=== PATIENT | male | born 1970 | race Caucasian/White ===

== ENCOUNTER 2020-11-10 08:08 | Outpatient (CLI) | payer OTHER, SELFPAY ==
--- NOTE | ~2020-11-10 | US_ITS ---
EXAMINATION: US carotid duplex BI DATE: 11/10/2020 09:17 INDICATION: Carotid bruit TECHNIQUE: Grayscale, color Doppler, and pulsed Doppler images of the cervical carotid arteries were obtained. The degree of vessel stenosis is placed in one of the following categories: normal, <50%, 5 0-69%, >=70% but less than near-occlusion, near-occlusion, or total occlusion. Note that percent sten osis relative to normal distal artery lumen diameter is indirectly measured from velocity measurement s as described by Bernard, et al. Radiology 2003; [id number]. COMPARISON: 07/30/2019 FINDINGS: RIGHT: The right common carotid artery (CCA) peak systolic velocity (PSV) is 188 cm/s. The right internal ca rotid artery (ICA) PSV is 162 cm/s. The right ICA end-diastolic velocity (EDV) is 51 cm/s. The right ICA/CCA PSV ratio is 0.9. Grayscale and color Doppler images yield an estimate of 50-69% diameter red uction from plaque in the ICA. The external carotid artery (ECA) PSV is 186 cm/s. There is antegrade flow in the right vertebral artery. LEFT: The left CCA PSV is 135 cm/s. The left ICA PSV is 142 cm/s. The left ICA EDV is 44 cm/s. The left ICA /CCA PSV ratio is 1.1. Grayscale and color Doppler images yield an estimate of 50-69% diameter reduct ion from plaque in the ICA. The ECA PSV is 181 cm/s. There is antegrade flow in the left vertebral ar franky. IMPRESSION: 1. 50-69% stenosis in the right internal carotid artery. 2. 50-69% stenosis in the left internal carotid artery. Reviewed, dictated and finalized at location A. [employer]
--- NOTE | ~2020-11-10 | US_ITS ---
EXAMINATION: US art doppler w press LE BI DATE: 11/10/2020 09:17 INDICATION: Bilateral lower limb pain. TECHNIQUE: Segmental pressures and plethysmographic and Doppler waveforms of the brachial and lower e xtremity arteries were obtained. COMPARISON: None. FINDINGS: Right and left brachial artery pressures of 114 mm Hg and 98 mm Hg, respectively, are normal (normal difference <= 30 mmHg). The right and left high-thigh pressure indices are 1.18 and 1.01, respectivel y (normal > 1.2). The right ankle-brachial index (SHASHANK) is 1.17 (normal >= 0.9-1). The right great toe-brachial index (T BI) is 0.71 (normal >= 0.6-0.8). The right lower extremity segmental pressure gradients are normal (n ormal gradients <= 20-30 mmHg between adjacent levels on the same leg or the same levels on the two l egs). Arterial waveforms are triphasic at the right common femoral, superficial femoral and popliteal arteries and biphasic at the right posterior tibial and dorsalis pedis arteries with brisk systolic upstrokes throughout. The left SHASHANK is 1.05. The left TBI is 0.64. The left lower extremity segmental pressure gradients are normal. Arterial waveforms are triphasic at the left common femoral, superficial femoral and poplite al arteries and biphasic at the left posterior tibial and dorsalis pedis arteries with brisk systolic upstrokes throughout. IMPRESSION: 1. Normal SHASHANK's and TBI's bilaterally. No significant arterial occlusive disease. Reviewed, dictated and finalized at location A. E SETTER IMPRESSION: 1. Normal SHASHANK's and TBI's bilaterally. No significant arterial occlusive diseas e.
== END 2020-11-10 08:09 | disposition home or self-care (01) ==
LOC: ANHIMG 08:12
PROVIDERS: PCP Family Medicine; Visit Provider Internal Medicine Cardiovascular Disease
DX: I25.10 Atherosclerotic heart disease of native coronary artery without angina pectoris (principal); I65.23 Occlusion and stenosis of bilateral carotid arteries; M79.604 Pain in right leg; M79.605 Pain in left leg; Z72.0 Tobacco use; R09.89 Other specified symptoms and signs involving the circulatory and respiratory systems
CPT/HCPCS: 93880; 93923

== ENCOUNTER 2020-12-14 15:36 | Outpatient (CLI) | payer OTHER, SELFPAY ==
--- NOTE | ~2020-12-14 | XR_ITS ---
XR lumbar spine 2-3V DATE: 12/14/2020 16:12 INDICATION: Lower back pain for 2 to 3 weeks and left hip pain. No recent injury TECHNIQUE: AP, lateral, coned lateral lumbosacral views COMPARISON: None FINDINGS: No fracture or bone destruction or spondylolisthesis is evident. The lumbar pedicles are in tact. Lumbar and lumbosacral interspaces are relatively preserved. The sacroiliac joints are intact, with mild degenerative change of the right. IMPRESSION: No significant abnormality of the lumbar spine Reviewed, dictated and finalized at location B.
--- NOTE | ~2020-12-14 | XR_ITS ---
XR sacrum coccyx min 2V DATE: 12/14/2020 16:12 INDICATION: Low back pain for 2 to 3 weeks, left hip pain TECHNIQUE: AP and angled AP and lateral views COMPARISON: None FINDINGS: There is mild sclerotic degenerative change at the right sacroiliac joint. No fracture or d islocation at the sacroiliac joints. No sacral or coccygeal fracture or bone destruction. The pubic s ymphysis is intact. Hip joint spaces appear symmetric and relatively preserved. IMPRESSION: Mild degenerative change at right sacroiliac joint Reviewed, dictated and finalized at location B.
--- NOTE | ~2020-12-14 | XR_ITS ---
XR hip LT min 2V DATE: 12/14/2020 16:13 INDICATION: Left hip pain for 2 to 3 weeks TECHNIQUE: AP, lateral and crosstable lateral views COMPARISON: None FINDINGS: No fracture or dislocation, avascular necrosis or bone destruction. Left hip joint space is well preserved. Symphysis and sacroiliac joints are intact. IMPRESSION: Negative left hip Reviewed, dictated and finalized at location B. IMPRESSION: Negative left hip
== END 2020-12-14 15:37 | disposition home or self-care (01) ==
PROVIDERS: PCP Family Medicine
DX: M47.818 Spondylosis without myelopathy or radiculopathy, sacral and sacrococcygeal region (principal); M25.552 Pain in left hip; M54.5 Low back pain
CPT/HCPCS: 72100; 72220; 73502

== ENCOUNTER 2021-05-09 09:34 | Outpatient (CLI) | payer OTHER, SELFPAY ==
[2021-05-09 10:19] LABS: Basophils Absolute Auto 0.1 K/mm3 (0.0-0.1); Basophils Percent Auto 0.6 % (0.2-1.2); Eosinophils Absolute Auto 0.2 K/mm3 (0-0.3); Eosinophils Percent Auto 2.6 % (0-4.4); Hematocrit 32.3 % (42.0-52.0); Hemoglobin 10.1 g/dL (14.0-18.0); Immature Granulocyte Absolute 0.07 K/mm3 (0.00-0.031); Immature Granulocyte Percent A 0.7 % (0-0.5); Lymphocytes Absolute Auto 1.89 K/mm3 (0.9-3.2); Lymphocytes Percent Auto 20.1 % (18.3-44.2); Mean Corpuscular HGB Conc 31.3 g/dl (32-36); Mean Corpuscular Hemoglobin 30.3 pg (26-34); Mean Platelet Volume 8.5 fl (7.4-10.4); Monocytes Absolute Auto 0.9 K/mm3 (0.1-0.6); Monocytes Percent Auto 9.8 % (2.6-8.5); Neutrophils Absolute Auto 6.2 K/mm3 (1.3-6.7); Neutrophils Percent Auto 66.2 % (45.5-73.1); Platelet Count Result 454 k/mm3 (150-375); Red Blood Count 3.33 M/mm3 (4.6-6.20); Red Cell Distribution Width 13.6 % (11.5-14.5); White Blood Count 9.4 K/mm3 (4.5-10.0)
[2021-05-09 10:50] LABS: Alanine Aminotransferase 23 U/L (4-50); Albumin Level 4.3 g/dL (3.5-5.1); Alkaline Phosphatase 110 U/L (38-126); Anion Gap 4 mmol/L (8-16); Aspartate Amino Transferase 29 U/L (17-59); Bilirubin,Total 0.5 mg/dL (0.2-1.3); Blood Urea Nitrogen 13 mg/dL (9-20); Calcium 9.2 mg/dL (8.4-10.2); Carbon Dioxide 26 mmol/L (22-30); Chloride 103 mmol/L (98-107); Cholesterol 95 mg/dL (0-200); Estimated Glomerular Filt Rate > 60; Glucose 96 mg/dL (65-110); HDL Direct 58 mg/dL; Potassium 3.8 mmol/L (3.4-5.0); Sodium 133 mmol/L (137-145); Triglycerides 31 mg/dL (<150)
[2021-05-09 11:01] LABS: LDL Cholesterol Direct 31 mg/dL
[2021-05-09 11:07] LABS: Prostate Specific Antigen 0.2 ng/mL (< OR = 4.0)
[2021-05-09 11:33] LABS: Creatinine Urine 139.3 mg/dL
[2021-05-09 11:38] LABS: MALB Creatinine Ratio 5.4 mg/g (0-30); Microalbumin Urine Random 7.5 mg/L (0-16.7)
[2021-05-09 12:30] LABS: Vitamin D 25 Hydroxy 41.9 ng/mL
== END 2021-05-09 09:35 | disposition home or self-care (01) ==
PROVIDERS: PCP Family Medicine
DX: Z00.00 Encounter for general adult medical examination without abnormal findings (principal); J44.9 Chronic obstructive pulmonary disease, unspecified; F17.200 Nicotine dependence, unspecified, uncomplicated; I10 Essential (primary) hypertension; E55.9 Vitamin D deficiency, unspecified; Z13.0 Encounter for screening for diseases of the blood and blood-forming organs and certain disorders involving the immune mechanism; Z13.6 Encounter for screening for cardiovascular disorders; Z13.220 Encounter for screening for lipoid disorders; Z13.29 Encounter for screening for other suspected endocrine disorder; Z12.5 Encounter for screening for malignant neoplasm of prostate; R80.9 Proteinuria, unspecified
CPT/HCPCS: 36415; 80053; 80061; 82043; 82306; 84153; 85025; G0103

== ENCOUNTER → 2021-06-21 02:56 | Outpatient (CLI) | payer OTHER, SELFPAY ==
[2021-06-22 01:26] LABS: SARS-CoV-2 RNA PCR Negative
== END ==
PROVIDERS: PCP Family Medicine; Visit Provider Internal Medicine Gastroenterology
DX: Z01.812 Encounter for preprocedural laboratory examination (principal); Z20.822 Contact with and (suspected) exposure to COVID-19
CPT/HCPCS: C9803; U0003; U0005

== ENCOUNTER 2021-06-24 02:28 | Day surgery (SDC) | payer OTHER, SELFPAY ==
[2021-06-16 09:38] VITALS: BMI 18.0
[2021-06-24 09:45] VITALS: BP 139/61; PULSE 60; RESP 16; TEMP 36.6; O2SAT 100; BMI 19.6
[2021-06-24] MEDS: LACTATED RINGERS 1,000 ML 150 ML IV CONT (10:15)
--- NOTE | 2021-06-24 10:23 | WPDGICN ---
Assessment and Plan Assessment and plan (1) Anemia: Code(s): D64.9 - Anemia, unspecified Status: Acute Assessment and Plan: Patient has normochromic normocytic anemia recently identified. No obvious signs of GI blood loss. Colonoscopy is requested will be performed. Recommend stool Hemoccult be obtained as an outpatient as well as iron indices. If patient is iron deficient or Hemoccult-positive EGD may also be required at a later day. Further recommendations will be given after colonoscopy. Consider Hematology evaluation if GI series unremarkable. (2) Encounter for screening colonoscopy: Code(s): Z12.11 - Encounter for screening for malignant neoplasm of colon Status: Acute Assessment and Plan: Screening colonoscopy advised because patient is over age 50 this will be performed. GI Consult Note Consult date/time: 06/24/21 10:23 HPI: Luis Manuel Delgado is a 51 year old male Referred for screening colonoscopy. Patient reports his weight appetite bowel movements are normal. He apparently was found to have normochromic normocytic anemia and this motivated colonoscopy to evaluate more thoroughly. Patient denies any blood in his stools. He has had no bleeding elsewhere. His bowel habits are described as normal. His family history is noncontributory. Patient does report that he has had boils on his buttocks. These have occurred intermittently over the last several months. Review of Systems Review of Systems: All systems reviewed & are unremarkable except as noted in HPI and below PMFSH Past Medical History Medical History (Updated 06/24/21 @ 10:25 by Joe Villanueva MD) Anemia CAD (coronary artery disease) COPD (chronic obstructive pulmonary disease) Hyperlipidemia Hypertension Surgical History Surgical History (Updated 06/24/21 @ 10:14 by Jonathan Lowe MD) Stented coronary artery Family History Family History (Updated 05/16/16 @ 15:06 by DOCTOR UNKNOWN) Father Hypertension Mother Family history of malignant neoplasm of breast in first degree relative Other Diabetes mellitus Family history of malignant neoplasm of brain Social History Social History Smoking packs per day: 1 Smoking cigarettes per day: 20.0 Years smoked: 40 Smoking pack-years: 40.00 Smoking status: Heavy tobacco smoker Tobacco type: cigarettes Alcohol intake: current Substance use: never Substance use type: does not use Spiritual care concerns: No Meds Home Medications and Allergies Home Medications Medication Instructions Recorded Confirmed Type aspirin [Adult Low Dose Aspirin] 81 mg PO DAILY 06/16/21 06/24/21 History atorvastatin 40 mg PO DAILY 06/16/21 06/24/21 History ferrous sulfate [FeroSul] 325 mg PO BID 06/16/21 06/24/21 History lisinopril 2.5 mg PO BID 06/16/21 06/24/21 History nitroglycerin 0.3 mg SUBLINGUAL PRN 06/16/21 06/24/21 History ticagrelor [Brilinta] 60 mg PO BID 06/16/21 06/24/21 History Allergies Allergy/AdvReac Type Severity Reaction Status Date / Time succinylcholine Allergy Severe PT HAS A Verified 06/24/21 09:55 GENE THAT IS ADVERSE TO ANECTINE Vital Signs Vital Signs - 24 hr 06/24/21 09:45 Temperature 97.8 F Pulse Rate 60 Respiratory Rate 16 Blood Pressure 139/61 Pulse Oximetry 100 Exam Narrative: physical exam reveals patient to be alert. Vital signs stable. HEENT exam is unremarkable. Patient is anicteric. Lungs are clear to auscultation and percussion. Heart is without murmur or extra sounds. Abdominal exam bowel sounds are present soft nontender with no organomegaly. Digital external rectal exam is normal.
--- NOTE | 2021-06-24 10:34 | P.PNAN_ITS ---
Anes - Initial Pre Proc Eval Procedure: Operation Date: 06/24/21 11:00 Proposed Procedures p Colonoscopy - Joe Villanueva MD Date/Time: 06/24/21 10:34 Surgeon: Joe Villanueva MD Pre Op Diagnosis: anemia Patient Data Age: 51 Gender: M Height: 1.85 m Weight: 67.5 kg Last Vital Signs Temp 97.8 F 06/24/21 09:45 Pulse 60 06/24/21 09:45 Resp 16 06/24/21 09:45 BP 139/61 06/24/21 09:45 Pulse Ox 100 06/24/21 09:45 Allergies Allergy/AdvReac Type Severity Reaction Status Date / Time succinylcholine Allergy Severe PT HAS A Verified 06/24/21 09:55 GENE THAT IS ADVERSE TO ANECTINE Home Medications Medication Instructions Recorded Confirmed Type aspirin [Adult Low Dose Aspirin] 81 mg PO DAILY 06/16/21 06/24/21 History atorvastatin 40 mg PO DAILY 06/16/21 06/24/21 History ferrous sulfate [FeroSul] 325 mg PO BID 06/16/21 06/24/21 History lisinopril 2.5 mg PO BID 06/16/21 06/24/21 History nitroglycerin 0.3 mg SUBLINGUAL PRN 06/16/21 06/24/21 History ticagrelor [Brilinta] 60 mg PO BID 06/16/21 06/24/21 History Patient hx anesthesia problems: none Family hx anesthesia problems: none Results Review: All pre-operative results and documents have been reviewed as part of the pre-operative evaluation. [facility] Past Medical History Medical History (Updated 06/24/21 @ 10:25 by Joe Villanueva MD) Anemia CAD (coronary artery disease) COPD (chronic obstructive pulmonary disease) Hyperlipidemia Hypertension Surgical History Surgical History (Updated 06/24/21 @ 10:14 by Jonathan Lowe MD) Stented coronary artery Family History Family History (Updated 05/16/16 @ 15:06 by DOCTOR UNKNOWN) Father Hypertension Mother Family history of malignant neoplasm of breast in first degree relative Other Diabetes mellitus Family history of malignant neoplasm of brain Social History Social History Smoking packs per day: 1 Smoking cigarettes per day: 20.0 Years smoked: 40 Smoking pack-years: 40.00 Smoking status: Heavy tobacco smoker Tobacco type: cigarettes Alcohol intake: current Substance use: never Substance use type: does not use Spiritual care concerns: No Anes - Eval Final PreProcedure Day of Procedure 06/24/21 10:34 Patient weight: normal Lungs: clear to auscultation Airway: Mallampati scale class II Neurological: alert and oriented Last oral intake: >/= 8 hours ASA classification: III Emergent: no Anesthetic plan: proceed Anesthesia type and monitoring: general GIVS and standard monitoring Results Review: All pre-operative results and documents have been reviewed as part of the pre-operative evaluation. Informed Consent: The patient's anesthetic plan and its attendant risks and dilma efits were discussed with the patient/family/POA. Questions were solicited and answers provided to the satisfaction of the patient/family/POA.
[2021-06-24 11:01] VITALS: BP 97/57; PULSE 57; RESP 22; O2SAT 100
[2021-06-24 11:11] VITALS: BP 100/58; PULSE 55; RESP 22; O2SAT 100
[2021-06-24 11:21] VITALS: BP 112/60; RESP 18; O2SAT 100
[2021-06-24 13:14] LABS: Iron 23 ug/dL (49-181)
[2021-06-24 13:23] LABS: Percent Iron Saturation 7 % (20-50)
== END 2021-06-24 12:11 | disposition home or self-care (01) ==
PROVIDERS: PCP Family Medicine; Visit Provider Internal Medicine Gastroenterology
PROC: 0DJD8ZZ Inspection of Lower Intestinal Tract, Via Natural or Artificial Opening Endoscopic (ICD-10-PCS; CPT 45378; principal; 2021-06-24 11:00)
DX: Z12.11 Encounter for screening for malignant neoplasm of colon (principal); D64.9 Anemia, unspecified; D12.4 Benign neoplasm of descending colon; K63.5 Polyp of colon; K64.8 Other hemorrhoids; I25.10 Atherosclerotic heart disease of native coronary artery without angina pectoris; J44.9 Chronic obstructive pulmonary disease, unspecified; I10 Essential (primary) hypertension; E78.5 Hyperlipidemia, unspecified; F17.210 Nicotine dependence, cigarettes, uncomplicated; Z79.82 Long term (current) use of aspirin
CPT/HCPCS: 45385; 36415; 82728; 83540; 83550; 88305; C9803; J2704; J7120; U0003; U0005

== ENCOUNTER 2021-11-08 16:32 | Outpatient (CLI) | payer OTHER, SELFPAY ==
[2021-11-08 17:39] LABS: Basophils Absolute Auto 0.1 K/mm3 (0.0-0.1); Basophils Percent Auto 0.6 % (0.2-1.2); Eosinophils Absolute Auto 0.4 K/mm3 (0-0.3); Eosinophils Percent Auto 4.8 % (0-4.4); Hematocrit 31.6 % (42.0-52.0); Hemoglobin 10.7 g/dL (14.0-18.0); Immature Granulocyte Absolute 0.05 K/mm3 (0.00-0.031); Immature Granulocyte Percent A 0.6 % (0-0.5); Lymphocytes Absolute Auto 1.99 K/mm3 (0.9-3.2); Lymphocytes Percent Auto 22.6 % (18.3-44.2); Mean Corpuscular HGB Conc 33.9 g/dl (32-36); Mean Corpuscular Hemoglobin 33.3 pg (26-34); Mean Corpuscular Volume 98.4 fl (80-100); Mean Platelet Volume 8.8 fl (7.4-10.4); Neutrophils Absolute Auto 5.3 K/mm3 (1.3-6.7); Neutrophils Percent Auto 60.4 % (45.5-73.1); Platelet Count Result 349 k/mm3 (150-375); Red Blood Count 3.21 M/mm3 (4.6-6.20); Red Cell Distribution Width 14.7 % (11.5-14.5); White Blood Count 8.8 K/mm3 (4.5-10.0)
[2021-11-08 18:12] LABS: Alanine Aminotransferase 21 U/L (4-50); Albumin Level 4.2 g/dL (3.5-5.1); Alkaline Phosphatase 102 U/L (38-126); Anion Gap 3 mmol/L (8-16); Aspartate Amino Transferase 29 U/L (17-59); Bilirubin,Total 0.4 mg/dL (0.2-1.3); Blood Urea Nitrogen 16 mg/dL (9-20); Calcium 9.4 mg/dL (8.4-10.2); Carbon Dioxide 29 mmol/L (22-30); Chloride 105 mmol/L (98-107); Cholesterol 85 mg/dL (0-200); Estimated Glomerular Filt Rate > 60; Glucose 92 mg/dL (65-110); HDL Direct 48 mg/dL; Magnesium 1.9 mg/dL (1.6-2.3); Sodium 137 mmol/L (137-145); Triglycerides 33 mg/dL (<150)
[2021-11-08 18:52] LABS: Iron 58 ug/dL (49-181)
[2021-11-08 19:01] LABS: Percent Iron Saturation 17 % (20-50)
[2021-11-08 19:27] LABS: Ferritin 9.53 ng/mL (11.1-264)
[2021-11-08 20:10] LABS: Vitamin D 25 Hydroxy 22.5 ng/mL
[2021-11-08 21:46] LABS: LDL Cholesterol Direct < 30 mg/dL
== END 2021-11-08 16:33 | disposition home or self-care (01) ==
LOC: ANHLAB 16:34
PROVIDERS: PCP Family Medicine; Visit Provider Nurse Practitioner Family
DX: D64.9 Anemia, unspecified (principal); E78.5 Hyperlipidemia, unspecified; I10 Essential (primary) hypertension; I25.10 Atherosclerotic heart disease of native coronary artery without angina pectoris; J44.9 Chronic obstructive pulmonary disease, unspecified; E55.9 Vitamin D deficiency, unspecified
CPT/HCPCS: 36415; 80053; 80061; 82306; 82607; 82728; 83540; 83550; 83735; 84443; 85025

== ENCOUNTER 2022-01-18 11:03 | Outpatient (CLI) | payer OTHER, SELFPAY ==
--- NOTE | ~2022-01-18 | XR_ITS ---
EXAMINATION: XR lumbar spine 2-3V DATE: 01/18/2022 11:35 INDICATION: Low back pain TECHNIQUE: Anteroposterior and lateral views of the lumbar spine, and cone-down lateral view of the l umbosacral junction were obtained. COMPARISON: 12/14/2020 FINDINGS: There are 2 mm of stable retrolisthesis of L5 on S1. Bone alignment is otherwise maintained . There is mild loss of intervertebral disc space height at L4-5 and moderate loss of disc space heig ht at L5-S1. The vertebral body heights are normal. There is no fracture. Calcified atherosclerosis i s noted. There is mild facet osteoarthritis of the lower lumbar spine. IMPRESSION: 1. Mild lumbar spondylosis without acute findings or significant interval change. Reviewed, dictated and finalized at location F. IMPRESSION: 1. Mild lumbar spondylosis without acute findings or significant interval mallory eBlanca
--- NOTE | ~2022-01-18 | XR_ITS ---
XR ankle RT 2V DATE: 01/18/2022 11:35 INDICATION: Fall in October. Right leg, ankle pain TECHNIQUE: AP and lateral views COMPARISON: None FINDINGS: No fracture or dislocation of the ankle or disruption of the ankle mortise. No fracture or bone destruction. No soft tissue swelling. IMPRESSION: Negative Reviewed, dictated and finalized at location A. IMPRESSION: Negative
[2022-01-18 11:55] LABS: Basophils Absolute Auto 0.1 K/mm3 (0.0-0.1); Basophils Percent Auto 0.5 % (0.2-1.2); Eosinophils Absolute Auto 0.4 K/mm3 (0-0.3); Eosinophils Percent Auto 2.8 % (0-4.4); Hematocrit 38.5 % (42.0-52.0); Hemoglobin 13.5 g/dL (14.0-18.0); Immature Granulocyte Absolute 0.07 K/mm3 (0.00-0.031); Immature Granulocyte Percent A 0.5 % (0-0.5); Lymphocytes Absolute Auto 1.92 K/mm3 (0.9-3.2); Lymphocytes Percent Auto 14.8 % (18.3-44.2); Mean Corpuscular HGB Conc 35.1 g/dl (32-36); Mean Corpuscular Hemoglobin 34.4 pg (26-34); Mean Corpuscular Volume 98.2 fl (80-100); Mean Platelet Volume 8.5 fl (7.4-10.4); Monocytes Absolute Auto 1.3 K/mm3 (0.1-0.6); Neutrophils Absolute Auto 9.3 K/mm3 (1.3-6.7); Neutrophils Percent Auto 71.4 % (45.5-73.1); Platelet Count Result 332 k/mm3 (150-375); Red Blood Count 3.92 M/mm3 (4.6-6.20); Red Cell Distribution Width 13.2 % (11.5-14.5)
[2022-01-18 12:08] LABS: Iron 136 ug/dL (49-181)
[2022-01-18 12:17] LABS: Percent Iron Saturation 46 % (20-50)
[2022-01-18 12:58] LABS: Vitamin B12 > 1000.0 pg/mL (239-931)
== END 2022-01-18 11:04 | disposition home or self-care (01) ==
LOC: ANHIMG 11:07
PROVIDERS: PCP Family Medicine; Visit Provider Nurse Practitioner Family
DX: D50.9 Iron deficiency anemia, unspecified (principal); E53.8 Deficiency of other specified B group vitamins; M25.571 Pain in right ankle and joints of right foot; M47.817 Spondylosis without myelopathy or radiculopathy, lumbosacral region
CPT/HCPCS: 36415; 72100; 73600; 82607; 82728; 83540; 83550; 85025

== ENCOUNTER 2022-01-27 01:54 | Day surgery (SDC) | payer OTHER, SELFPAY ==
[2022-01-17 12:11] VITALS: BMI 21.0
[2022-01-27 12:25] VITALS: BP 107/58; PULSE 61; RESP 18; TEMP 36.6; O2SAT 93; BMI 20.4
[2022-01-27] MEDS: LACTATED RINGERS 1,000 ML 150 ML IV CONT (12:46)
--- NOTE | 2022-01-27 12:53 | WPDANESEPPF ---
Anes - Initial Pre Proc Eval Procedure: Operation Date: 01/27/22 13:00 Proposed Procedures p Esophagogastroduodenoscopy - Joe Villanueva MD Date/Time: 01/27/22 12:53 Surgeon: Joe Villanueva MD Pre Op Diagnosis: occult GI bleed, SILVANA Patient Data Age: 52 Gender: M Height: 1.85 m Weight: 70.2 kg Last Vital Signs Temp 36.6 C 01/27/22 12:25 Pulse 61 01/27/22 12:25 Resp 18 01/27/22 12:25 BP 107/58 L 01/27/22 12:25 Pulse Ox 93 01/27/22 12:25 Allergies Allergy/AdvReac Type Severity Reaction Status Date / Time succinylcholine Allergy Severe PT HAS A Verified 01/27/22 12:33 GENE THAT IS ADVERSE TO ANECTINE Home Medications Medication Instructions Recorded Confirmed Type aspirin [Adult Low Dose Aspirin] 81 mg PO DAILY 06/16/21 01/27/22 History atorvastatin 40 mg PO DAILY 06/16/21 01/27/22 History lisinopril 5 mg PO BID 06/16/21 01/27/22 History nitroglycerin 0.3 mg SUBLINGUAL PRN PRN 06/16/21 01/27/22 History ticagrelor [Brilinta] 60 mg PO BID 06/16/21 01/27/22 History ferrous sulfate 325 mg (65 mg 325 mg PO DAILY #30 tablet 11/14/21 01/27/22 Rx iron) tablet mecobalamin (vitamin B12) 1,000 1,000 mcg SUBLINGUAL DAILY #30 11/14/21 01/27/22 Rx mcg disintegrating tablet tablet,sublingual tizanidine 2 mg tablet 2 mg PO TID PRN #30 tablet 12/29/21 01/27/22 Rx ascorbic acid (vitamin C) 500 mg 500 mg PO DAILY cap 01/04/22 01/27/22 History capsule ibuprofen [Advil] 200 mg PO Q6H PRN 01/17/22 01/27/22 History doxycycline hyclate 100 mg tablet 100 mg PO BID 10 Days #20 tablet 01/18/22 01/27/22 Rx Patient hx anesthesia problems: pseudocholinesterase deficiency Family hx anesthesia problems: pseudocholinesterase deficiency Results Review: All pre-operative results and documents have been reviewed as part of the pre-operative evaluation. [facility] Past Medical History Medical History Abnormal reflexes Anemia Back injuries BMI 20.0-20.9, adult BMI between 19-24,adult Body mass index [BMI] 23.0-23.9, adult (05/16/16) CAD (coronary artery disease) Colonoscopy planned COPD (chronic obstructive pulmonary disease) Costochondritis Encounter for general adult medical examination with abnormal findings Folliculitis Gingivitis Hearing loss, bilateral Hematuria Hemoptysis Hyperlipidemia Hypertension Skin lesion Tobacco use Tonsillectomy planned Viral syndrome Weight loss Wheezing Surgical History Surgical History H/O adenoidectomy History of lung biopsy History of tooth extraction Stented coronary artery Family History Family History Father Hypertension Acute myocardial infarction Dupuytrens contracture Mother Family history of malignant neoplasm of breast in first degree relative Breast cancer Sibling No problems noted. 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
--- NOTE | 2022-01-27 13:15 | WPDHPUPDATE1 ---
History and Physical Update Update Date/Time: 01/27/22 13:15 In addition to history provided on previous H&P patient reports occasional drainage from the perianal area. Sometimes this is foul smelling. Physical exam today reveals what appears to be a small perianal abscess on the right anterior area of the anal opening. Plan will be for surgical referral to consider drainage. History and Physical has been reviewed, including an updated exam of the patient. There are NO changes in the patient's condition. Risks, benefits, and alternatives have been discussed and questions answered. Patient agrees to proceed with procedure.
[2022-01-27 13:41] VITALS: BP 82/47; PULSE 61; RESP 25; O2SAT 95
[2022-01-27 13:51] VITALS: BP 89/52; PULSE 51; RESP 22; O2SAT 98
[2022-01-27 14:01] VITALS: BP 106/52; PULSE 53; RESP 16; O2SAT 98
== END 2022-01-27 14:16 | disposition home or self-care (01) ==
PROVIDERS: PCP Family Medicine; Visit Provider Internal Medicine Gastroenterology
PROC: 0DJ08ZZ Inspection of Upper Intestinal Tract, Via Natural or Artificial Opening Endoscopic (ICD-10-PCS; CPT 43235; principal; 2022-01-27 13:00)
DX: D50.9 Iron deficiency anemia, unspecified (principal); K25.3 Acute gastric ulcer without hemorrhage or perforation; K21.00 Gastro-esophageal reflux disease with esophagitis, without bleeding; K29.50 Unspecified chronic gastritis without bleeding; R19.5 Other fecal abnormalities; E78.5 Hyperlipidemia, unspecified; I10 Essential (primary) hypertension; F17.210 Nicotine dependence, cigarettes, uncomplicated; Z95.5 Presence of coronary angioplasty implant and graft
CPT/HCPCS: 43239; 87081; 88305; J2001; J2704; J7120

== ENCOUNTER 2022-02-18 17:55 | Observation (INO) | payer OTHER, SELFPAY ==
--- NOTE | ~2022-02-18 | US_ITS ---
US scrotum doppler INDICATION: Right scrotal pain for one and a half weeks. Nausea and vomiting. TECHNIQUE: Testicular sonogram utilizing grayscale and color Doppler FINDINGS: The testes are normal in size and appearance. No focal lesions are seen. The right testes measures 5.3 x 2.5 x 3.3 cm centimeters, and the left testis measures 5 x 2 x 2.5 cm cm. There is asy mmetrically increased flow in the right testicle which is somewhat heterogeneous. There is also incre ased flow in the right epididymis. There is a 4 mm right epididymal cyst. There is a right varicocele . IMPRESSION: 1. Increased flow in the right testicle and epididymis, consistent with epididymoorchitis. 2: Right varicocele. Reviewed, dictated and finalized at location A. IMPRESSION: 1. Increased flow in the right testicle and epididymis, consistent with epidid ymoorchitis. 2: Right varicocele.
[2022-02-18 17:56] VITALS: BP 111/54; PULSE 98; RESP 16; TEMP 37.7; O2SAT 98
--- NOTE | 2022-02-18 18:14 | PC.NURSE ---
Pt given urinal to attempt specimen.
[2022-02-18 18:39] VITALS: BP 105/60; PULSE 84; RESP 16; O2SAT 94; O2SAT 98
[2022-02-18 18:41] LABS: Hematocrit 32.2 % (42.0-52.0); Hemoglobin 11.2 g/dL (14.0-18.0); Mean Corpuscular HGB Conc 34.8 g/dl (32-36); Mean Corpuscular Hemoglobin 33.3 pg (26-34); Mean Corpuscular Volume 95.8 fl (80-100); Mean Platelet Volume 8.4 fl (7.4-10.4); Platelet Count Result 468 k/mm3 (150-375); Red Blood Count 3.36 M/mm3 (4.6-6.20); White Blood Count 30.8 K/mm3 (4.5-10.0)
--- NOTE | 2022-02-18 18:43 | ED.MALEGU ---
HPI - Male Genitourinary General Chief complaint: Urogenital-Male <Kia Perez MD - Last Filed: 02/19/22 07:46> Stated complaint: uti/ swollen scrotum <Kia Perez MD - Last Filed: 02/19/22 07:46> Time Seen by Provider: 02/18/22 18:04 <Kia Perez MD - Last Filed: 02/19/22 07:46> History of Present Illness HPI Narrative: Patient states that since last Sunday, he has been having pain with urination, in the last 3 days he has been having pain that is been growing more severe in his right scrotum. Pain is constant, he states he may have had something similar in the past, he also states that he has an anal tear? that occasionally seems to have some discharge(?) he sees a general surgeon for this. No fevers or chills, he states that he thinks he contracted this from his who was recently hospitalized with a UTI. Also endorses nausea and diarrhea for past 2 weeks. <Kia Perez MD - Last Filed: 02/19/22 07:46> Related Data Home medications: Home Medications Medication Instructions Recorded Confirmed aspirin 81 mg tablet 81 mg PO DAILY 06/16/21 02/18/22 atorvastatin 40 mg tablet 40 mg PO DAILY 06/16/21 02/18/22 lisinopril 5 mg tablet 5 mg PO BID 06/16/21 02/18/22 ticagrelor 60 mg tablet (Brilinta) 60 mg PO BID 06/16/21 02/18/22 <Kia Perez MD - Last Filed: 02/19/22 07:46> Allergies/Adverse reactions: Allergies Allergy/AdvReac Type Severity Reaction Status Date / Time succinylcholine Allergy Severe PT HAS A Verified 02/01/22 09:31 GENE THAT IS ADVERSE TO ANECTINE <Kia Perez MD - Last Filed: 02/19/22 07:46> Review of Systems Review of Systems: CONST: No fever. HEENT: No sore throat C/V: No chest pain RESP: No cough GI: Reports nausea, vomiting[, diarrhea] : Dysuria. M/S: No joint pain. SKIN: No rash. NEURO: [No headache or focal numbness or weakness] PSYCH: [No depression] <Kia Perez MD - Last Filed: 02/19/22 07:46> [facility] Past Medical History Medical History: Medical History Abnormal reflexes Anemia Back injuries BMI 20.0-20.9, adult BMI between 19-24,adult Body mass index [BMI] 23.0-23.9, adult (05/16/16) CAD (coronary artery disease) Colonoscopy planned COPD (chronic obstructive pulmonary disease) Costochondritis Encounter for general adult medical examination with abnormal findings Folliculitis Gingivitis Hearing loss, bilateral Hematuria Hemoptysis Herniated intervertebral disc of lumbar spine Hyperlipidemia Hypertension Skin lesion Tobacco use Tonsillectomy planned Viral syndrome Weight loss Wheezing <Kia Perez MD - Last Filed: 02/19/22 07:46> Surgical History Surgical History: Surgical History History of lung biopsy History of tonsillectomy and adenoidectomy History of tooth extraction Stented coronary artery <Kia Perez MD - Last Filed: 02/19/22 07:46> Family History Family History: Family History Father Hypertension Acute myocardial infarction Dupuytrens contracture Mother Family history of malignant neoplasm of breast in first degree relative Breast cancer Sibling No problems noted. 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
[2022-02-18 18:45] VITALS: BP 116/56; O2SAT 96
[2022-02-18] MEDS: CIPROFLOXACIN 400 MG/D5W 200ML 200 ML 200 MG IVPB (18:52)
[2022-02-18 18:53] LABS: Alanine Aminotransferase 30 U/L (6-50); Albumin Level 3.7 g/dL (3.5-5.1); Alkaline Phosphatase 97 U/L (38-126); Anion Gap 13 mmol/L (8-16); Aspartate Amino Transferase 54 U/L (17-59); Bilirubin,Total 1.1 mg/dL (0.2-1.3); Blood Urea Nitrogen 10 mg/dL (9-20); Calcium 8.7 mg/dL (8.4-10.2); Carbon Dioxide 21 mmol/L (22-30); Chloride 97 mmol/L (98-107); Estimated CRCL calculation 91 ml/min; Estimated Glomerular Filt Rate > 60; Glucose 119 mg/dL (65-110); Potassium 3.8 mmol/L (3.4-5.0); Sodium 131 mmol/L (137-145)
--- NOTE | 2022-02-18 18:59 | PC.NURSE ---
Report to Melodie Ruby
[2022-02-18 19:00] LABS: Appearance Urine Slightly Cloudy (Clear); Bilirubin Urine 1+ (Negative); Blood Urine 2+ (Negative); Color Urine Yellow (Yellow); Glucose Urine UA Negative (Negative); Ketones Urine 3+ mg/dL (Negative); Leukocyte Esterase Ur 2+ LEU/UL (Negative); Nitrate Urine Positive (Negative); Protein Urine 1+ mg/dL (Negative)
[2022-02-18 19:07] LABS: Add Urine Microscopic? YES; Bacteria Urine 1+ /hpf; Mucus Urine Rare /lpf; WBC Urine >75 /hpf
[2022-02-18 19:15] VITALS: BP 108/64; O2SAT 96
[2022-02-18 19:23] LABS: Band Neutrophils Percent 5 % (0-6); Lymphocytes Absolute Manual 1.54 K/mm3 (1.1-4.5); Monocytes Absolute Manual 2.15 K/mm3 (0.1-0.90); Monocytes Percent Manual 7 % (3-9); Neutrophils Percent Manual 83 % (46-73); Platelet Estimate Increased (Adequate); Total Cells Counted 100
--- NOTE | 2022-02-18 19:38 | PC.NURSE ---
Patient in ultrasound at this time.
[2022-02-18] MEDS: ONDANSETRON INJ 4 MG/2 ML VIAL IV PUSH (20:11)
[2022-02-18] MEDS: LACTATED RINGERS 1,000 ML 999 ML IV CONT (20:11)
[2022-02-18] MEDS: cefTRIAXone 2 GM in SODIUM CHLORIDE 0.9% IV 100 ML 200 ML IVPB (20:12)
[2022-02-18 21:06] VITALS: O2SAT 100
--- NOTE | 2022-02-18 21:31 | PM.IMHP ---
H&P: HPI History of Present Illness Date/Time: 02/18/22 21:31 Chief Complaint: scrotal edema Narrative: 32-year-old male with past medical history significant for coronary artery disease, COPD, hypertension, hyperlipidemia is presenting with 2-3 day history of progressively worsening pain in the right scrotum. He states the pain is pretty consistent and seems to be getting worse as opposed to better. It is itchy was significant swelling and redness. The also been associated with painful urination and dysuria. He denies fevers or chills. He has had some nausea with mild diarrhea for the last week or 2. He does state his recently was hospitalized for UTI neurology deficit infecting him. Of note, he states he thought he had an anal fissure in the past. Urology was consulted from the ER requested IV antibiotics and an ultrasound of the scrotum. patient was noted to have significant leukocytosis with a white blood cell count of 30.8. His sodium was 131 and creatinine was 0.8. Urinalysis did look positive for UTI as well. Scrotal ultrasound did show epididymal orchitis of the right testicle with an associated right varicocele. STD testing was sent from the ER. The patient was started on Cipro, doxycycline and Rocephin. Toradol was given for pain. He was placed in a scrotal sling and his symptoms significantly improved after treatment in the ER. Review of Systems Review of Systems: Twelve point review of systems was reviewed and is negative except as noted in the HPI [facility] Past Medical History Medical History Abnormal reflexes Anemia Back injuries BMI 20.0-20.9, adult BMI between 19-24,adult Body mass index [BMI] 23.0-23.9, adult (05/16/16) CAD (coronary artery disease) Colonoscopy planned COPD (chronic obstructive pulmonary disease) Costochondritis Encounter for general adult medical examination with abnormal findings Folliculitis Gingivitis Hearing loss, bilateral Hematuria Hemoptysis Herniated intervertebral disc of lumbar spine Hyperlipidemia Hypertension Skin lesion Tobacco use Tonsillectomy planned Viral syndrome Weight loss Wheezing Surgical History Surgical History History of lung biopsy History of tonsillectomy and adenoidectomy History of tooth extraction Stented coronary artery Family History Family History Father Hypertension Acute myocardial infarction Dupuytrens contracture Mother Family history of malignant neoplasm of breast in first degree relative Breast cancer Sibling No problems noted. 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 Gender identity (if verbalized by the patient): Male Spiritual care concerns: No Meds Home Medications and Allergies Home Medications Medication Instructions Recorded Confirmed Type aspirin 81 mg tablet 81 mg PO DAILY 06/16/21 02/18/22 History atorvastatin 40 mg tablet 40 mg PO DAILY 06/16/21 02/18/22 History lisinopril 5 mg tablet 5 mg PO BID 06/16/21 02/18/22 History ticagrelor 60 mg tablet (Brilinta) 60 mg PO BID 06/16/21 02/18/22 History pantoprazole 40 mg tablet,delayed 40 mg PO QAM 4 weeks #28 tabs 01/27/22 02/18/22 Rx release Allergies Allergy/AdvReac Type Severity Reaction Status Date / Time succinylcholine Allergy Severe PT HAS A
[2022-02-18] MEDS: DOXYCYCLINE HYCLATE 100 MG TABLET PO (22:00)
[2022-02-18] MEDS: KETOROLAC 30 MG/ML VIAL (*BKC) 15 MG IV PUSH (22:01)
[2022-02-18] MEDS: FAMOTIDINE 20 MG/2 ML VIAL IV PUSH (22:01)
--- NOTE | 2022-02-18 22:35 | ADMGEN ---
This patient, Luis Manuel Delgado, was admitted to [facility] Surg Room 300-01. Patient/family oriented to hospital policies and general routines including ID bracelet, bed and alarms, visiting hours, pain management, procedures, bathroom and other care routines, personal items, smoking policy, room service/diet, and visiting hours. Information on how to activate the Rapid Response Team has been discussed. Patient/Family are encouraged to report perceived risks to care and to ask questions if they do not understand what they are told or what they should do.
[2022-02-18] MEDS: LACTATED RINGERS 1,000 ML 125 ML IV CONT (23:04)
[2022-02-18 23:38] VITALS: PULSE 65; O2SAT 96
[2022-02-19] VITALS: BP 108/50; PULSE 67; RESP 18; TEMP 36.6; O2SAT 97
[2022-02-19] MEDS: LACTATED RINGERS 1,000 ML 125 ML IV CONT (05:34)
[2022-02-19 06:00] VITALS: BP 88/42; PULSE 63; RESP 18; TEMP 36.9; O2SAT 97
[2022-02-19 07:33] LABS: Basophils Absolute Auto 0.1 K/mm3 (0.0-0.1); Basophils Percent Auto 0.4 % (0.2-1.2); Eosinophils Absolute Auto 0.1 K/mm3 (0-0.3); Eosinophils Percent Auto 0.6 % (0-4.4); Hematocrit 26.3 % (42.0-52.0); Hemoglobin 9.6 g/dL (14.0-18.0); Immature Granulocyte Absolute 0.28 K/mm3 (0.00-0.031); Immature Granulocyte Percent A 1.4 % (0-0.5); Lymphocytes Absolute Auto 1.74 K/mm3 (0.9-3.2); Lymphocytes Percent Auto 8.7 % (18.3-44.2); Mean Corpuscular HGB Conc 36.5 g/dl (32-36); Mean Corpuscular Hemoglobin 36.6 pg (26-34); Mean Corpuscular Volume 100.4 fl (80-100); Mean Platelet Volume 8.7 fl (7.4-10.4); Monocytes Absolute Auto 1.9 K/mm3 (0.1-0.6); Monocytes Percent Auto 9.4 % (2.6-8.5); Neutrophils Absolute Auto 15.9 K/mm3 (1.3-6.7); Neutrophils Percent Auto 79.5 % (45.5-73.1); Platelet Count Result 420 k/mm3 (150-375); Red Blood Count 2.62 M/mm3 (4.6-6.20); Red Cell Distribution Width 13.2 % (11.5-14.5)
[2022-02-19 07:42] LABS: Alanine Aminotransferase 19 U/L (6-50); Alkaline Phosphatase 93 U/L (38-126); Anion Gap 6 mmol/L (8-16); Aspartate Amino Transferase 27 U/L (17-59); Bilirubin,Total 0.8 mg/dL (0.2-1.3); Blood Urea Nitrogen 11 mg/dL (9-20); Calcium 8.3 mg/dL (8.4-10.2); Carbon Dioxide 29 mmol/L (22-30); Chloride 98 mmol/L (98-107); Estimated CRCL calculation 74 ml/min; Estimated Glomerular Filt Rate > 60; Glucose 88 mg/dL (65-110); Potassium 3.8 mmol/L (3.4-5.0); Sodium 133 mmol/L (137-145)
[2022-02-19] MEDS: DOXYCYCLINE HYCLATE 100 MG TABLET PO ×2 (08:50→20:21)
[2022-02-19] MEDS: FAMOTIDINE 20 MG/2 ML VIAL IV PUSH ×2 (08:50→20:21)
--- NOTE | 2022-02-19 09:00 | PM.IMPN ---
Progress Note: A&P Assessment and Plan (1) Acute epididymo-orchitis: Code(s): N45.3 - Epididymo-orchitis Status: Acute Assessment and Plan: Follow-up STD testing, urology consult pending, continue doxycycline and Cipro for now, if STD testing comes back negative, would discharge on Cipro, follow-up urine cultures (2) Tobacco use: Code(s): Z72.0 - Tobacco use Status: Acute Assessment and Plan: discussed nicotine cessation for greater than 5 minutes (3) GERD (gastroesophageal reflux disease): Code(s): K21.9 - Gastro-esophageal reflux disease without esophagitis Status: Acute Assessment and Plan: Stable on current medication (4) Hyperlipidemia: Qualifiers: Hyperlipidemia type: mixed hyperlipidemia Qualified Code(s): E78.2 - Mixed hyperlipidemia Code(s): E78.5 - Hyperlipidemia, unspecified Status: Acute Assessment and Plan: Stable current meds (5) Hypertension: Qualifiers: Hypertension type: primary hypertension Qualified Code(s): I10 - Essential (primary) hypertension Code(s): I10 - Essential (primary) hypertension Status: Acute Assessment and Plan: Stable current meds (6) CAD (coronary artery disease): Qualifiers: Coronary Disease-Associated Artery/Lesion type: unspecified vessel or lesion type [place] vs. transplanted heart: [place] heart Associated angina: without angina Qualified Code(s): I25.10 - Atherosclerotic heart disease of [place] coronary artery without angina pectoris Code(s): I25.10 - Atherosclerotic heart disease of [place] coronary artery without angina pectoris Status: Acute Assessment and Plan: Stable with current med Additional Plan 02/19/2022 Plan is to continue with IV antibiotic and p.o. doxycycline. Continue home medication. Pain medication. Possible discharge in the morning. Subjective Date/time seen: 02/19/22 09:00 Patient was seen during the morning rounds today. Patient has scrotal pain is slightly better. No shortness breath or chest pain. Mood stable. Review of Systems Review of Systems: All systems reviewed & are unremarkable except as noted in HPI and below (The history and physical examination.) Exam Narrative: General: Patient resting comfortably in bed, no acute distress HEENT: Atraumatic, normocephalic, mucous membranes moist CV: Regular rate and rhythm, S1, S2, no murmurs rubs or gallops noted Lungs: Clear to auscultation bilaterally, no rales or crackles noted, no wheezes, good air entry Abdomen: Soft, nontender, nondistended Right testicular swelling with mild tenderness Extremities: Normal to inspection, no edema noted Skin: No rashes noted, no lesions or wounds seen Psych: Euthymic, normal affect Neuro: Cranial nerves 2-12 grossly intact, strength 5/5 upper and lower extremities noted Objective Data Vital Signs Vital Signs: Vital Signs - 24 hr 02/18/22 17:56 02/18/22 18:39 02/18/22 18:39 Temperature 37.7 C H Pulse Rate 98 84 Respiratory Rate 16 16 Blood Pressure 111/54 L 105/60 105/60 Pulse Oximetry 98 98 94 Oxygen Delivery Room Air 02/18/22 18:45 02/18/22 19:15 02/18/22 21:06 Temperature Pulse Rate Respiratory Rate Blood Pressure 116/56 L 108/64 Pulse Oximetry 96 96 100 Oxygen Delivery 02/18/22 23:38 02/19/22 00:00 02/19/22 06:00 Temperature 36.6 C 36.9 C Pulse Rate 65 67 63 Respiratory Rate 18 18 Blood Pressure 108/50 L 88/42 L Pulse Oximetry 96 97 97 Oxygen Delivery Room Air Intake/Output Intake/Output: Intake & Output 02/16/22 02/17/22 02/18/22 02/19/22 23:59 23:59 23:59 23:59 Intake Total 1300 1350 Output Total 400 Balance 1300 950 Meds/Results Medications: Active Medications Generic Name Dose Route Start Last Admin Trade Name Freq PRN Reason Stop Dose Admin Hydrocodone Bitart/Acetaminophen 1 tab 02/19/22 08:59 Hy
--- NOTE | 2022-02-19 09:15 | WPDURCON ---
Assessment and Plan Assessment and plan (1) Acute epididymo-orchitis: Code(s): N45.3 - Epididymo-orchitis Status: Acute (2) Leukocytosis (leucocytosis): Code(s): D72.829 - Elevated white blood cell count, unspecified Status: Acute Plan 52-year-old gentleman with right epididymoorchitis -continue antibiotics. Recommend a 2 week course of antibiotics -await urine culture results -recommend scrotal elevation -nonsteroidal anti-inflammatories as needed Urology Consult Note HPI Date Seen: 02/19/22 Requesting Physician: Melinda Gibbs DO Primary Care Provider: Dillon Payne MD Consult Narrative Narrative: Luis Manuel Delgado is a 52 year old male PMF Past Medical History Medical History Abnormal reflexes Anemia Back injuries BMI 20.0-20.9, adult BMI between 19-24,adult Body mass index [BMI] 23.0-23.9, adult (05/16/16) CAD (coronary artery disease) Colonoscopy planned COPD (chronic obstructive pulmonary disease) Costochondritis Encounter for general adult medical examination with abnormal findings Folliculitis Gingivitis Hearing loss, bilateral Hematuria Hemoptysis Herniated intervertebral disc of lumbar spine Hyperlipidemia Hypertension Skin lesion Tobacco use Tonsillectomy planned Viral syndrome Weight loss Wheezing Surgical History Surgical History History of lung biopsy History of tonsillectomy and adenoidectomy History of tooth extraction Stented coronary artery Family History Family History Father Hypertension Acute myocardial infarction Dupuytrens contracture Mother Family history of malignant neoplasm of breast in first degree relative Breast cancer Sibling No problems noted. 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 Gender identity (if verbalized by the patient): Male Spiritual care concerns: No Meds Home Medications and Allergies Home Medications Medication Instructions Recorded Confirmed Type aspirin 81 mg tablet 81 mg PO DAILY 06/16/21 02/18/22 History atorvastatin 40 mg tablet 40 mg PO DAILY 06/16/21 02/18/22 History lisinopril 5 mg tablet 5 mg PO BID 06/16/21 02/18/22 History ticagrelor 60 mg tablet (Brilinta) 60 mg PO BID 06/16/21 02/18/22 History pantoprazole 40 mg tablet,delayed 40 mg PO QAM 4 weeks #28 tabs 01/27/22 02/18/22 Rx release Allergies Allergy/AdvReac Type Severity Reaction Status Date / Time succinylcholine Allergy Severe PT HAS A Verified 02/01/22 09:31 GENE THAT IS ADVERSE TO ANECTINE Vital Signs Vital Signs - 24 hr 02/18/22 17:56 02/18/22 18:39 02/18/22 18:39 Temperature 37.7 C H Pulse Rate 98 84 Respiratory Rate 16 16 Blood Pressure 111/54 L 105/60 105/60 Pulse Oximetry 98 98 94 Oxygen Delivery Room Air 02/18/22 18:45 02/18/22 19:15 02/18/22 21:06 Temperature Pulse Rate Respiratory Rate Blood Pressure 116/56 L 108/64 Pulse Oximetry 96 96 100 Oxygen Delivery 02/18/22 23:38 02/19/22 00:00 02/19/22 06:00 Temperature 36.6 C 36.9 C Pulse Rate 65 67 63 Respiratory Rate 18 18 Blood Pressure 108/50 L 88/42 L Pulse Oximetry 96 97 97 Oxygen Delivery Room Air Exam Narrative: Patient is awake and alert. He is in no acute distress. Breathing is unlabor
[2022-02-19] MEDS: lisinopriL 5 MG TABLET PO ×2 (10:22→17:34)
[2022-02-19] MEDS: ASPIRIN 81 MG CHEWABLE TABLET PO (10:22)
[2022-02-19] MEDS: TICAGRELOR 60 MG TABLET PO ×2 (10:22→17:34)
[2022-02-19] MEDS: PANTOPRAZOLE 40 MG TABLET PO (10:22)
[2022-02-19] MEDS: ATORVASTATIN 40 MG TABLET PO (10:22)
[2022-02-19 14:00] VITALS: BP 96/46; PULSE 70; RESP 16; TEMP 36.8; O2SAT 97
[2022-02-19] MEDS: SODIUM CHLORIDE 0.9% IV 1,000 ML 250 ML IV CONT (15:09)
[2022-02-19] MEDS: LACTATED RINGERS 1,000 ML 1 ML IV CONT (15:11)
[2022-02-19 18:40] VITALS: BP 100/50
[2022-02-19 22:00] VITALS: BP 100/55; PULSE 61; RESP 14; TEMP 36.6; O2SAT 96
[2022-02-20] MEDS: LACTATED RINGERS 1,000 ML 125 ML IV CONT (04:32)
[2022-02-20 06:00] VITALS: BP 111/56; PULSE 59; RESP 14; TEMP 36.6; O2SAT 96
--- NOTE | 2022-02-20 08:29 | PM.DS ---
DS: Admitting Diagnosis Discharge Date 02/20/2022 Admitting Diagnosis Acute epididymo-orchitis DS: Discharge Diagnosis Discharge Diagnosis (1) Acute epididymo-orchitis: Code(s): N45.3 - Epididymo-orchitis Status: Acute Assessment and Plan: Follow-up STD testing, urology consult pending, continue doxycycline and Cipro for now, if STD testing comes back negative, would discharge on Cipro, follow-up urine cultures (2) Tobacco use: Code(s): Z72.0 - Tobacco use Status: Acute Assessment and Plan: discussed nicotine cessation for greater than 5 minutes (3) GERD (gastroesophageal reflux disease): Code(s): K21.9 - Gastro-esophageal reflux disease without esophagitis Status: Acute Assessment and Plan: Stable on current medication (4) Hyperlipidemia: Qualifiers: Hyperlipidemia type: mixed hyperlipidemia Qualified Code(s): E78.2 - Mixed hyperlipidemia Code(s): E78.5 - Hyperlipidemia, unspecified Status: Acute Assessment and Plan: Stable current meds (5) Hypertension: Qualifiers: Hypertension type: primary hypertension Qualified Code(s): I10 - Essential (primary) hypertension Code(s): I10 - Essential (primary) hypertension Status: Acute Assessment and Plan: Stable current meds (6) CAD (coronary artery disease): Qualifiers: Associated angina: without angina Coronary Disease-Associated Artery/Lesion type: unspecified vessel or lesion type [place] vs. transplanted heart: [place] heart Qualified Code(s): I25.10 - Atherosclerotic heart disease of [place] coronary artery without angina pectoris Code(s): I25.10 - Atherosclerotic heart disease of [place] coronary artery without angina pectoris Status: Acute Assessment and Plan: Stable with current med DS: Summary Hospital Course Reason for hospitalization: acute epididymo-orchitis Hospital Course: 52 years old male was admitted complains of having testicular pain. Patient has history of hypertension and coronary artery disease. Patient was given IV antibiotics and cultures were done. Patient continued better with medicine. Today patient is feeling good so patient is discharged home in stable condition. Status at Discharge Cognitive/behavioral status at discharge: stable Time Spent with Patient Time attestation: Total time spent providing and/or coordinating discharge services: Time spent: Less than 30 minutes Exam Narrative: General: Patient resting comfortably in bed, no acute distress HEENT: Atraumatic, normocephalic, mucous membranes moist CV: Regular rate and rhythm, S1, S2, no murmurs rubs or gallops noted Lungs: Clear to auscultation bilaterally, no rales or crackles noted, no wheezes, good air entry Abdomen: Soft, nontender, nondistended Right testicular swelling with mild tenderness Extremities: Normal to inspection, no edema noted Skin: No rashes noted, no lesions or wounds seen Psych: Euthymic, normal affect Neuro: Cranial nerves 2-12 grossly intact, strength 5/5 upper and lower extremities noted Discharge Plan Discharge Attending physician on discharge: Mahesh Mora Consulting providers: Laura Prince Discharging Clinician: Mahesh Mora Patient Disposition: Home, Self-Care Activity: as tolerated Diet: as tolerated and heart healthy Patient Instructions: Antibiotic Form Stand Alone Forms: General Discharge Information Follow-up/Referrals: Laura Prince MD [Physician] - Dillon Payne MD [Primary Care Provider] - Discharge Medications: New doxycycline hyclate 100 mg Tablet 100 mg PO Q12HR Qty: 14 0RF Continued atorvastatin 40 mg tablet 40 mg PO DAILY Adult Low Dose Aspirin 81 mg Tablet 81 mg PO DAILY lisinopril 5 mg tablet 5 mg PO BID Brilinta 60 mg tablet 60 mg PO BID pantoprazole 40 mg tablet,delayed release (DR/EC)
[2022-02-20] MEDS: TICAGRELOR 60 MG TABLET PO (08:36)
[2022-02-20] MEDS: DOXYCYCLINE HYCLATE 100 MG TABLET PO (08:36)
[2022-02-20] MEDS: ASPIRIN 81 MG CHEWABLE TABLET PO (08:36)
[2022-02-20] MEDS: FAMOTIDINE 20 MG/2 ML VIAL IV PUSH (08:36)
[2022-02-20] MEDS: ATORVASTATIN 40 MG TABLET PO (08:36)
[2022-02-20] MEDS: PANTOPRAZOLE 40 MG TABLET PO (08:36)
[2022-02-20] MEDS: lisinopriL 5 MG TABLET PO (08:37)
[2022-02-20 08:52] LABS: Hematocrit 26.9 % (42.0-52.0); Mean Corpuscular HGB Conc 33.5 g/dl (32-36); Mean Corpuscular Hemoglobin 33.7 pg (26-34); Mean Corpuscular Volume 100.7 fl (80-100); Mean Platelet Volume 8.5 fl (7.4-10.4); Platelet Count Result 389 k/mm3 (150-375); Red Blood Count 2.67 M/mm3 (4.6-6.20); Red Cell Distribution Width 13.3 % (11.5-14.5); White Blood Count 15.8 K/mm3 (4.5-10.0)
== END 2022-02-20 14:05 | disposition home or self-care (01) ==
LOC: ANHED 21:06 → ANH3MEDSUR 22:20
PROVIDERS: Emergency Medicine; Admitting Provider Student in an Organized Health Care Education/Training Program; Emergency Provider Emergency Medicine; PCP Family Medicine; Visit Provider Internal Medicine
DX: N45.3 Epididymo-orchitis (principal); I86.1 Scrotal varices; D72.829 Elevated white blood cell count, unspecified; R50.9 Fever, unspecified; I25.10 Atherosclerotic heart disease of native coronary artery without angina pectoris; J44.9 Chronic obstructive pulmonary disease, unspecified; D64.9 Anemia, unspecified; I10 Essential (primary) hypertension; E78.5 Hyperlipidemia, unspecified; K21.9 Gastro-esophageal reflux disease without esophagitis; F17.210 Nicotine dependence, cigarettes, uncomplicated; Z95.5 Presence of coronary angioplasty implant and graft; Z79.82 Long term (current) use of aspirin; Z79.01 Long term (current) use of anticoagulants
CPT/HCPCS: 36415; 76870; 80053; 81001; 85025; 85027; 87077; 87086; 87186; 87491; 87591; 93976; 96361; 96365; 96366; 96367; 96375; 96376; 99285; A9270; G0378; J0131; J0696; J0744; J1885; J1956; J2405; J7030; J7120

== ENCOUNTER 2022-04-10 01:23 | Day surgery (SDC) | payer OTHER, SELFPAY ==
[2022-03-28 10:08] VITALS: BMI 19.4
[2022-04-10 09:47] VITALS: BP 88/42; PULSE 56; RESP 16; TEMP 36.7; O2SAT 100; BMI 19.3
[2022-04-10] MEDS: LACTATED RINGERS 1,000 ML 150 ML IV CONT (10:16)
--- NOTE | 2022-04-10 10:40 | PM.IMHP ---
H&P: HPI History of Present Illness Date/Time: 04/10/22 10:40 Chief Complaint: Gastric ulcer. Narrative: This is a 52-year-old white male patient who recently had GI bleeding black melenic stools. EGD 2 months ago revealed distal esophagitis integrated gastric ulcer patient has been maintained on pantoprazole subsequently with no abdominal pain. His stool habits remain normal with no evidence recurrent melena. Patient denies any abdominal pain. Tolerating diet without difficulty. Family history noncontributory. Over last 2 months he has avoided NSAID medications. He presents today for follow-up EGD. Review of Systems Review of Systems: Review of systems is noncontributory. [facility] Past Medical History Medical History Abnormal reflexes Anemia Back injuries BMI 20.0-20.9, adult BMI between 19-24,adult Body mass index [BMI] 23.0-23.9, adult (05/16/16) CAD (coronary artery disease) Colonoscopy planned COPD (chronic obstructive pulmonary disease) Costochondritis Encounter for general adult medical examination with abnormal findings Folliculitis Gingivitis Hearing loss, bilateral Hematuria Hemoptysis Herniated intervertebral disc of lumbar spine Hyperlipidemia Hypertension Skin lesion Tobacco use Tonsillectomy planned Viral syndrome Weight loss Wheezing Surgical History Surgical History History of lung biopsy History of tonsillectomy and adenoidectomy History of tooth extraction Stented coronary artery Family History Family History Father Hypertension Acute myocardial infarction Dupuytrens contracture Mother Family history of malignant neoplasm of breast in first degree relative Breast cancer Sibling No problems noted. 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 Gender identity (if verbalized by the patient): Male Spiritual care concerns: No Meds Home Medications and Allergies Home Medications Medication Instructions Recorded Confirmed Type aspirin 81 mg tablet 81 mg PO DAILY 06/16/21 04/10/22 History atorvastatin 40 mg tablet 40 mg PO DAILY 06/16/21 04/10/22 History lisinopril 5 mg tablet 5 mg PO BID 06/16/21 04/10/22 History ticagrelor 60 mg tablet (Brilinta) 60 mg PO BID 06/16/21 04/10/22 History pantoprazole 40 mg tablet,delayed 40 mg PO QAM 4 weeks #28 tabs 01/27/22 04/10/22 Rx release Allergies Allergy/AdvReac Type Severity Reaction Status Date / Time succinylcholine Allergy Severe PT HAS A Verified 04/10/22 10:01 GENE THAT IS ADVERSE TO ANECTINE Vital Signs Vital Signs - 24 hr 04/10/22 09:47 Temperature 98.0 F Pulse Rate 56 L Respiratory Rate 16 Blood Pressure 88/42 L Pulse Oximetry 100 Oxygen Delivery Room Air Exam Narrative: Physical exam reveals patient to be alert. Vital signs stable. HEENT exam is unremarkable. Patient is anicteric. Lungs are clear to auscultation and percussion. Heart is without murmur or extra sounds. Abdomen bowel sounds present soft nontender with no hepatosplenomegaly. Assessment and Plan Assessment and plan (1) History of gastric ulcer: Code(s): Z87.11 - Personal history of peptic ulcer disease Status: Acute Assessment and
--- NOTE | 2022-04-10 10:45 | WPDANESEPPF ---
Anes - Initial Pre Proc Eval Procedure: Operation Date: 04/10/22 10:30 Proposed Procedures p Esophagogastroduodenoscopy - Joe Villanueva MD Date/Time: 04/10/22 10:45 Surgeon: Joe Villanueva MD Pre Op Diagnosis: gastric ulcer, esophagitis Patient Data Age: 52 Gender: M Height: 1.85 m Weight: 66.6 kg Last Vital Signs Temp 98.0 F 04/10/22 09:47 Pulse 56 L 04/10/22 09:47 Resp 16 04/10/22 09:47 BP 88/42 L 04/10/22 09:47 Pulse Ox 100 04/10/22 09:47 O2 Del Method Room Air 04/10/22 09:47 Allergies Allergy/AdvReac Type Severity Reaction Status Date / Time succinylcholine Allergy Severe PT HAS A Verified 04/10/22 10:01 GENE THAT IS ADVERSE TO ANECTINE Home Medications Medication Instructions Recorded Confirmed Type aspirin 81 mg tablet 81 mg PO DAILY 06/16/21 04/10/22 History atorvastatin 40 mg tablet 40 mg PO DAILY 06/16/21 04/10/22 History lisinopril 5 mg tablet 5 mg PO BID 06/16/21 04/10/22 History ticagrelor 60 mg tablet (Brilinta) 60 mg PO BID 06/16/21 04/10/22 History pantoprazole 40 mg tablet,delayed 40 mg PO QAM 4 weeks #28 tabs 01/27/22 04/10/22 Rx release Patient hx anesthesia problems: none Family hx anesthesia problems: none Results Review: All pre-operative results and documents have been reviewed as part of the pre-operative evaluation. [facility] Past Medical History Medical History Abnormal reflexes Anemia Back injuries BMI 20.0-20.9, adult BMI between 19-24,adult Body mass index [BMI] 23.0-23.9, adult (05/16/16) CAD (coronary artery disease) Colonoscopy planned COPD (chronic obstructive pulmonary disease) Costochondritis Encounter for general adult medical examination with abnormal findings Folliculitis Gingivitis Hearing loss, bilateral Hematuria Hemoptysis Herniated intervertebral disc of lumbar spine Hyperlipidemia Hypertension Skin lesion Tobacco use Tonsillectomy planned Viral syndrome Weight loss Wheezing Surgical History Surgical History History of lung biopsy History of tonsillectomy and adenoidectomy History of tooth extraction Stented coronary artery Family History Family History Father Hypertension Acute myocardial infarction Dupuytrens contracture Mother Family history of malignant neoplasm of breast in first degree relative Breast cancer Sibling No problems noted. 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 Informed Consent: The patient's anesthetic plan and its attendant risks and benefits were discussed with the patient/family/POA. Questions were solicited and answers provided to
[2022-04-10 11:03] VITALS: BP 77/39; PULSE 48; RESP 20; O2SAT 100
[2022-04-10 11:13] VITALS: BP 97/39; PULSE 45; RESP 20; O2SAT 100
== END 2022-04-10 11:31 | disposition home or self-care (01) ==
PROVIDERS: PCP Family Medicine; Visit Provider Internal Medicine Gastroenterology
PROC: 0DJ08ZZ Inspection of Upper Intestinal Tract, Via Natural or Artificial Opening Endoscopic (ICD-10-PCS; CPT 43235; principal; 2022-04-10 10:30)
DX: Z09 Encounter for follow-up examination after completed treatment for conditions other than malignant neoplasm (principal); Z87.11 Personal history of peptic ulcer disease; Z87.19 Personal history of other diseases of the digestive system; Z79.82 Long term (current) use of aspirin; D64.9 Anemia, unspecified; I25.10 Atherosclerotic heart disease of native coronary artery without angina pectoris; J44.9 Chronic obstructive pulmonary disease, unspecified; I10 Essential (primary) hypertension; E78.5 Hyperlipidemia, unspecified; F17.210 Nicotine dependence, cigarettes, uncomplicated
CPT/HCPCS: 43239; 87081; J2704; J7120

== ENCOUNTER 2022-07-25 15:05 | Outpatient (CLI) | payer OTHER, SELFPAY ==
--- NOTE | ~2022-07-25 | US_ITS ---
EXAMINATION: US carotid duplex BI DATE: 07/25/2022 16:25 INDICATION: Bilateral carotid artery stenosis TECHNIQUE: Grayscale, color Doppler, and pulsed Doppler images of the cervical carotid arteries were obtained. The degree of vessel stenosis is placed in one of the following categories: normal, <50%, 5 0-69%, >=70% but less than near-occlusion, near-occlusion, or total occlusion. Note that percent sten osis relative to normal distal artery lumen diameter is indirectly measured from velocity measurement s as described by Bernard, et al. Radiology 2003; 229:340-346. COMPARISON: 11/10/2020 FINDINGS: RIGHT: The right common carotid artery (CCA) peak systolic velocity (PSV) is 153 cm/s. The right internal ca rotid artery (ICA) PSV is 157 cm/s. The right ICA end-diastolic velocity (EDV) is 42 cm/s. The right ICA/CCA PSV ratio is 1.0. Grayscale and color Doppler images yield an estimate of 50-69% diameter red uction from plaque in the ICA. The external carotid artery (ECA) PSV is 143 cm/s. There is antegrade flow in the right vertebral artery. LEFT: The left CCA PSV is 147 cm/s. The left ICA PSV is 145 cm/s. The left ICA EDV is 39 cm/s. The left ICA /CCA PSV ratio is 1.0. Grayscale and color Doppler images yield an estimate of 50-69% diameter reduct ion from plaque in the ICA. The ECA PSV is 1.0 cm/s. There is antegrade flow in the left vertebral ar franky. IMPRESSION: 1. 50-69% stenosis in the right internal carotid artery. 2. 50-69% stenosis in the left internal carotid artery. Reviewed, dictated and finalized at location B.
== END 2022-07-25 15:06 | disposition home or self-care (01) ==
PROVIDERS: PCP Family Medicine; Visit Provider Internal Medicine Cardiovascular Disease
DX: I65.23 Occlusion and stenosis of bilateral carotid arteries (principal)
CPT/HCPCS: 93880

== ENCOUNTER 2022-11-28 09:09 | Outpatient (CLI) | payer OTHER, SELFPAY ==
[2022-11-28 09:57] LABS: Basophils Absolute Auto 0.1 K/mm3 (0.0-0.1); Basophils Percent Auto 0.7 % (0.2-1.2); Eosinophils Absolute Auto 0.5 K/mm3 (0-0.3); Eosinophils Percent Auto 5.6 % (0-4.4); Hematocrit 24.3 % (42.0-52.0); Immature Granulocyte Absolute 0.04 K/mm3 (0.00-0.031); Immature Granulocyte Percent A 0.5 % (0-0.5); Lymphocytes Absolute Auto 1.61 K/mm3 (0.9-3.2); Lymphocytes Percent Auto 18.5 % (18.3-44.2); Mean Corpuscular HGB Conc 28.8 g/dl (32-36); Mean Corpuscular Hemoglobin 24.7 pg (26-34); Mean Corpuscular Volume 85.9 fl (80-100); Mean Platelet Volume 9.7 fl (7.4-10.4); Monocytes Absolute Auto 1.3 K/mm3 (0.1-0.6); Monocytes Percent Auto 15.3 % (2.6-8.5); Neutrophils Absolute Auto 5.2 K/mm3 (1.3-6.7); Neutrophils Percent Auto 59.4 % (45.5-73.1); Platelet Count Result 388 k/mm3 (150-375); Red Blood Count 2.83 M/mm3 (4.6-6.20); Red Cell Distribution Width 18.6 % (11.5-14.5); White Blood Count 8.7 K/mm3 (4.5-10.0)
[2022-11-28 10:18] LABS: Anion Gap 7 mmol/L (8-16); Blood Urea Nitrogen 12 mg/dL (9-20); Calcium 9.1 mg/dL (8.4-10.2); Carbon Dioxide 26 mmol/L (22-30); Chloride 108 mmol/L (98-107); Estimated Glomerular Filt Rate > 60; Glucose 47 mg/dL (65-110); Potassium 3.7 mmol/L (3.4-5.0); Sodium 141 mmol/L (137-145)
[2022-11-28 10:40] LABS: Anisocytosis 1+ (NORMAL); Hypochromasia 2+ (NORMAL); Ovalocytes 1+ (NORMAL)
[2022-11-28 10:41] LABS: Crenated RBC 1+ (NORMAL); Poikilocytosis 1+ (NORMAL); Schistocytes None Seen (NORMAL); Target Cells 1+ (NORMAL)
== END 2022-11-28 09:10 | disposition home or self-care (01) ==
PROVIDERS: PCP Family Medicine; Visit Provider Internal Medicine Cardiovascular Disease
DX: K92.1 Melena (principal)
CPT/HCPCS: 36415; 80048; 85025

== ENCOUNTER 2022-11-28 13:42 | Inpatient (IN) | payer OTHER, SELFPAY ==
[2022-11-28] VITALS (11 sets, daily range): BP systolic 105–150; BP diastolic 42–66; PULSE 59–84; RESP 12–20; TEMP 36.1–36.8; O2SAT 98–100; BMI 22.0
--- NOTE | ~2022-11-28 | CT_ITS ---
EXAMINATION: CTA abdomen pelvis DATE: 11/29/2022 01:59 INDICATION: Gastrointestinal bleed TECHNIQUE: Computed tomographic angiography (CTA) of the abdomen and pelvis was performed without and with 100 mL Omnipaque-350 intravenous contrast. Additional 3D reconstructions utilizing rotating max imum intensity projection (MIP) were performed. Automated exposure control and iterative reconstructi on technique were employed. The dose-length product was 962.94 mGy-cm. COMPARISON: 04/03/2019 FINDINGS: Lung bases are clear. Heart size is normal. There is decreased attenuation the blood pool relative to myocardium consistent with anemia. Again seen is a small amount of subendocardial fat along the left side of the ventricular septum consistent with chronic myocardial infarction. No pericardial or pleu ral effusion. Multiple low-attenuation nonenhancing hepatic cysts the largest measuring 2.9 cm. Gallb ladder, spleen, pancreas, bilateral adrenal glands and kidneys are normal. Bladder is normal. Normal retrocecal appendix. No abnormal bowel wall thickening or obstruction. No evident active contrast ext ravasation along the bowels. Minimal ascites in the deep pelvis. There is a small amount of atherosclerotic plaque along the distal aspect of the normal caliber abdom inal aorta. Normal variant separate aortic origin of the left gastric artery slightly cephalad to the origin of the celiac axis. The superior mesenteric artery arises from the celiac axis. Bilateral shaw al artery are patent along with a smaller caliber accessory right renal artery which supplies anterio r lower pole of the right kidney. Mild stenosis at the origin of the inferior mesenteric artery. Ther e are high bifurcations of the bilateral iliac arteries. There is atherosclerotic plaque along the bi lateral iliac arteries with moderate, 50-70% stenosis at the proximal left internal iliac artery. Sca ttered mild stenoses along the more distal left internal iliac as well as the right internal iliac, b ilateral external iliac and bilateral common femoral arteries. IMPRESSION: 1. Bowels appear normal with no evident active contrast extravasation to identify the location of a r eported gastrointestinal bleed. 2. Nonspecific minimal amount of ascites in the deep pelvis. 3. 1 artery disease with small amount of fatty atrophy of the myocardium of the ventricular septum co nsistent with sequela of chronic infarct. Reviewed, dictated and finalized at location A. ED GOODS CONTROLS OPERATOR IMPRESSION: 1. Bowels appear normal with no evident active contrast extravasation to identi fy the location of a reported gastrointestinal bleed. 2. Nonspecific minimal amount of ascites in the deep pelvis. 3. 1 artery disease with small amount of fatty atrophy of the myocardium of the ventricular septum consistent with sequela of chronic infarct.
--- NOTE | ~2022-11-28 | XR_ITS ---
EXAMINATION: XR chest 1V portable DATE: 11/28/2022 15:55 INDICATION: Intermittent chest pain. TECHNIQUE: A single frontal view of the chest was obtained on 2 radiographs. COMPARISON: Chest 2 views 10/05/2016 FINDINGS: The chest demonstrates clear lungs without pneumonia, pleural effusion, or pneumothorax. Th e heart size is normal. IMPRESSION: 1. No acute cardiopulmonary disease. Reviewed, dictated and finalized at location A. VISION PRESENTER
[2022-11-28 13:53] LABS: Glucose Point of Care 144 mg/dl (65-105)
[2022-11-28 14:07] LABS: Basophils Absolute Auto 0.1 K/mm3 (0.0-0.1); Basophils Percent Auto 0.5 % (0.2-1.2); Eosinophils Absolute Auto 0.4 K/mm3 (0-0.3); Eosinophils Percent Auto 3.9 % (0-4.4); Hematocrit 22.9 % (42.0-52.0); Immature Granulocyte Absolute 0.03 K/mm3 (0.00-0.031); Immature Granulocyte Percent A 0.3 % (0-0.5); Lymphocytes Absolute Auto 1.55 K/mm3 (0.9-3.2); Lymphocytes Percent Auto 14.4 % (18.3-44.2); Mean Corpuscular HGB Conc 29.7 g/dl (32-36); Mean Corpuscular Volume 84.2 fl (80-100); Mean Platelet Volume 9.3 fl (7.4-10.4); Monocytes Percent Auto 9.4 % (2.6-8.5); Neutrophils Absolute Auto 7.7 K/mm3 (1.3-6.7); Neutrophils Percent Auto 71.5 % (45.5-73.1); Platelet Count Result 363 k/mm3 (150-375); Red Blood Count 2.72 M/mm3 (4.6-6.20); Red Cell Distribution Width 18.7 % (11.5-14.5); White Blood Count 10.8 K/mm3 (4.5-10.0)
[2022-11-28 14:16] LABS: Hemoglobin 6.8 g/dL (14.0-18.0)
[2022-11-28 14:17] LABS: Anisocytosis 1+ (NORMAL); Hypochromasia 2+ (NORMAL); Platelet Estimate Adequate (Adequate)
[2022-11-28 14:18] LABS: Alanine Aminotransferase 19 U/L (6-50); Albumin Level 4.5 g/dL (3.5-5.1); Alkaline Phosphatase 76 U/L (38-126); Anion Gap 8 mmol/L (8-16); Aspartate Amino Transferase 22 U/L (17-59); Bilirubin,Total 0.4 mg/dL (0.2-1.3); Blood Urea Nitrogen 10 mg/dL (9-20); Calcium 8.9 mg/dL (8.4-10.2); Carbon Dioxide 23 mmol/L (22-30); Chloride 104 mmol/L (98-107); Estimated CRCL calculation 88 ml/min; Estimated Glomerular Filt Rate > 60; Glucose 117 mg/dL (65-110); Ovalocytes 1+ (NORMAL); Potassium 3.5 mmol/L (3.4-5.0); Schistocytes None Seen (NORMAL); Sodium 135 mmol/L (137-145)
[2022-11-28 14:19] LABS: Crenated RBC 1+ (NORMAL); Poikilocytosis 1+ (NORMAL); Target Cells 1+ (NORMAL)
--- NOTE | 2022-11-28 15:39 | ECG_ITS ---
Measurements Intervals [place] Rate: 54 P: 75 HI: 174 QRS: 86 QRSD: 121 T: 75 QT: 431 QTc: 410 Interpretive Statements SINUS BRADYCARDIA POSSIBLE LEFT ATRIAL ENLARGEMENT RIGHT BUNDLE BRANCH BLOCK BASELINE ARTIFACT- I, III, AVL ABNORMAL ECG COMPARED TO ECG 04/04/2019 05:18:02 HEART RATE HAS INCREASED Electronically Signed On 11-28-2022 16:37:11 CAR DROPPER by Stefano Guillory D.O.
--- NOTE | 2022-11-28 16:03 | ED.RECABL ---
HPI - Recheck/Abnormal Lab/Rx General Chief Complaint: Recheck/Abnormal Lab/Rx Stated Complaint: abnormal labs; low hemoglobin/blood sugar Time Seen by Provider: 11/28/22 14:57 Source: patient and RN notes reviewed Mode of arrival: ambulatory Limitations: no limitations History of Present Illness HPI narrative: This is a 52 year old male with histor of CAD, stent, PUD who presents from clinic for evaluation of low hemoglobin. He was in for routine visit with his instrument repairer helper, and he reports multiple complaints so referred to ER after abnormal labs. He reports intermittent sharp left lower chest pain and abdominal pain over the past 2 weeks. He reports his pain is sharp and only last for seconds. He denies any exacerbating factors. HE also reports intermittent dizziness and lightheadedness. He denies shortness of breath, nausea, vomiting, fever or chills. He does reports 3-4 days of dark stools that subsided 3 days ago. He reports normal stool today. He takes pantoprazole for history of bleeding in ulcer in the past. He has seen Dr. Villanueva for issue and EGD 6 months ago . Related Data Home Medications Medication Instructions Recorded Confirmed aspirin 81 mg tablet 81 mg PO DAILY 06/16/21 11/28/22 atorvastatin 40 mg tablet 40 mg PO HS 06/16/21 11/28/22 lisinopril 5 mg tablet 5 mg PO BID 06/16/21 11/28/22 ticagrelor 60 mg tablet (Brilinta) 60 mg PO BID 06/16/21 11/28/22 Allergies Allergy/AdvReac Type Severity Reaction Status Date / Time succinylcholine Allergy Severe PT HAS A Verified 11/28/22 14:43 GENE THAT IS ADVERSE TO ANECTINE Review of Systems Constitutional: Constitutional: Denies weakness Cardiovascular: Cardiovascular: Reports chest pain, Denies syncope, Denies rapid heart rate, Denies irregular heart rhythm, Denies leg edema and Denies dyspnea Respiratory: Respiratory: Denies chest congestion, Denies hemoptysis, Denies excessive phlegm production and Denies dyspnea Gastrointestinal: Gastrointestinal: Reports abdominal pain, Denies hematochezia, Denies diarrhea and Denies vomiting Comments: dark stools Genitourinary: Genitourinary: Denies hematuria, Denies dysuria, Denies penile discharge and Denies testicular pain Musculoskeletal: Musculoskeletal: Denies joint swelling, Denies loss of height and Denies muscle weakness Neurologic: Reports dizziness, Denies syncope, Denies focal weakness and Denies weakness PMFSH Past Medical History Medical History Abnormal reflexes Anemia Back injuries BMI 20.0-20.9, adult BMI between 19-24,adult Body mass index [BMI] 23.0-23.9, adult (05/16/16) CAD (coronary artery disease) Colonoscopy planned COPD (chronic obstructive pulmonary disease) Costochondritis Encounter for general adult medical examination with abnormal findings Folliculitis Gingivitis Hearing loss, bilateral Hematuria Hemoptysis Herniated intervertebral disc of lumbar spine Hyperlipidemia Hypertension Skin lesion Tobacco use Tonsillectomy planned Viral syndrome Weight loss Wheezing Surgical History Surgical History History of lung biopsy History of tonsillectomy and adenoidectomy History of tooth extraction Stented coronary artery Family History Family History Father Hypertension Acute myocardial infarction Dupuytrens contracture Mother Family history of malignant neoplasm of breast in first degree relative Breast cancer Sibling No problems noted. Other Diabetes mellitus Family history of malignant neoplasm of brain Social History Social History Smoking packs per day: 1 Smoking cigarettes per day: 20.0 Years smoked: 40 Smoking pack-years: 40.00 Smoking status: Current every day smoker Tobacco type: cigarette
[2022-11-28] MEDS: PANTOPRAZOLE SODIUM IV 40 MG VIAL IV PUSH (16:04)
[2022-11-28 16:10] LABS: Appearance Urine Clear (Clear); Bilirubin Urine Negative (Negative); Blood Urine Negative (Negative); Color Urine Yellow (Yellow); Glucose Urine UA Negative (Negative); Ketones Urine Negative (Negative); Leukocyte Esterase Ur Negative LEU/UL (Negative); Nitrate Urine Negative (Negative); Protein Urine Negative (Negative); Specific Grav Ur 1.003 (1.001-1.035); Urobilinogen Urine 0.2 mg/dL (<2.0)
[2022-11-28 16:16] LABS: Lipase 66 U/L (23-300)
[2022-11-28 16:17] LABS: INR 1.1; Prothrombin Time 13.6 Seconds (11.1-14.7)
[2022-11-28 16:18] LABS: Partial Thromboplastin Time 32.6 SECONDS (22.3-36.8)
[2022-11-28 16:25] LABS: Add Urine Microscopic? NO
[2022-11-28 16:30] LABS: Troponin I < 0.012 ng/mL (0.000-0.034)
[2022-11-28 16:31] LABS: Iron 18 ug/dL (49-181)
[2022-11-28 16:40] LABS: Percent Iron Saturation 4 % (20-50)
[2022-11-28] MEDS: SODIUM CHLORIDE 0.9% IV 250 ML 30 ML IV CONT (16:58)
[2022-11-28 17:23] LABS: Folic Acid 8.5 ng/mL (2.76->20)
--- NOTE | 2022-11-28 18:28 | ADMGEN ---
This patient, Luis Manuel Delgado, was admitted to [facility] Surg Room 312-01. Patient/family oriented to hospital policies and general routines including ID bracelet, bed and alarms, visiting hours, pain management, procedures, bathroom and other care routines, personal items, smoking policy, room service/diet, and visiting hours. Information on how to activate the Rapid Response Team has been discussed. Patient/Family are encouraged to report perceived risks to care and to ask questions if they do not understand what they are told or what they should do.
[2022-11-28 18:41] LABS: Hematocrit 30.3 % (42.0-52.0); Hemoglobin 8.5 g/dL (14.0-18.0)
[2022-11-28] MEDS: SODIUM CHLORIDE 0.9% IV 1,000 ML 125 ML IV CONT (18:45)
--- NOTE | 2022-11-28 21:06 | PM.IMHP ---
H&P: HPI History of Present Illness Date/Time: 11/28/22 21:06 Chief Complaint: Abnormal lab Narrative: This is a 52-year-old male patient who has a history of coronary artery disease with 2 stents on Brilinta and history of peptic ulcer disease. The patient reported that he was seen by his exterior work helper and was told that he has abnormal labs. The patient was also complaining of intermittent sharp left lower chest pain. He is also having abdominal pain over the last 2 weeks. The patient has not had any hematemesis or hematochezia. The patient has been having some intermittent dizziness and lightheadedness. He denies any fever or chills or shortness of breath. The patient stated that he does have melena. This has occurred for 3 days but then stopped and he has had normal stools for last 3 days. He had a normal stool today. The patient does take pantoprazole for the peptic ulcer disease. The patient has had an EGD per Dr. Ching 6 months ago. His EGD was on 04/10/2022 the patient was found to have distal esophagitis integrated gastric ulcer. The patient was to avoid NSAIDs. The patient was given Protonix in the emergency room. Outpatient labs show an H&H of 7.0 in 24.3. Patient's previous H&H on 02/20/2022 shows the H&H of 9.0 and 26.9. Repeat H&H in the ER 6.8 and 22.9. Most recent was 8.5 and 30.3. When I assessed the patient he no longer had any discomfort. Patient's iron level is 18 and saturation is 4. Troponin is nonreactive. Chest x-ray no acute cardiopulmonary disease. GI has been consulted. The patient is being admitted to observation status on the date of service of 11/28/2022. Review of Systems Review of Systems: See HPI All systems reviewed & are unremarkable except as noted in HPI and below Constitutional: Constitutional: Reports as per HPI and Reports no additional constitutional complaints Eyes: Eyes: Reports as per HPI and Reports no additional eye complaints ENT: Reports system reviewed and no additional complaints, except as documented and Reports Normal hearing present Cardiovascular: Cardiovascular: Reports no additional cardiovascular complaints Respiratory: Respiratory: Reports no additional respiratory complaints and Reports no additional respiratory complaints Gastrointestinal: Gastrointestinal: Reports as per HPI and Reports no additional gastrointestinal complaints Musculoskeletal: Musculoskeletal: Reports no additional musculoskeletal complaints Integumentary/Breasts: Skin/Breast: Reports system reviewed and no additional complaints, except as docu and Reports as per HPI Neurologic: Reports system reviewed and no additional complaints, except as documented, Reports as per HPI and Reports Normal hearing present Psychiatric: Psychiatric: Reports no additional psychiatric complaints and Reports as per HPI Endocrine: Endocrine: Reports no additional endocrine complaints Hematologic/Lymphatic: Hematologic/Lymphatic: Reports no additional hematologic/lymphatic complaints Allergic/Immunologic: Allergic/Immunologic: Reports no additional allergic/immunologic complaints [facility] Past Medical History Medical History (Updated 11/28/22 @ 23:52 by Stacy Salinas NP) Abnormal reflexes Anemia Back injuries BMI 20.0-20.9, adult BMI between 19-24,adult Body mass index [BMI] 23.0-23.9, adult (05/16/16) CAD (coronary artery disease) Colonoscopy planned COPD (chronic obstructive pulmonary disease) Costochondritis Encounter for general adult medical examination with abnormal findings Folliculitis Gingivitis Hearing loss, bilateral Hematuria Hemoptysis Herniated intervertebral disc of lumbar spine Hyperlipidemia Hypertension Skin lesion Tobacco use Tonsillectomy planned Viral syndrome Weight loss Wheezing Surgical History Surgical History (Updated 11/28/22 @ 23:52 by Stacy Salinas NP) History of appendectomy History of lung biopsy History of tonsillectomy and adenoidectomy History of t
[2022-11-28 23:32] LABS: Hematocrit 23.6 % (42.0-52.0)
[2022-11-29] VITALS (20 sets, daily range): BP systolic 99–146; BP diastolic 40–61; PULSE 46–59; RESP 16–181; TEMP 36.1–36.8; O2SAT 96–100
[2022-11-29] MEDS: PANTOPRAZOLE SODIUM IV 40 MG VIAL IV PUSH ×2 (00:55→20:23)
[2022-11-29] MEDS: PANTOPRAZOLE SODIUM IV 80 MG in SODIUM CHLORIDE 0.9% IV 500 ML 50 MG IV CONT (01:02)
[2022-11-29] MEDS: SODIUM CHLORIDE 0.9% IV 1,000 ML 125 ML IV CONT ×2 (04:05→14:43)
--- NOTE | 2022-11-29 07:58 | WPDGICN ---
Assessment and Plan Assessment and plan (1) Anemia: Code(s): D64.9 - Anemia, unspecified Status: Acute Assessment and Plan: Patient with anemia. Appears to have worsened from previous records. Patient does have a history of anticoagulation with a history of gastric ulcer. A recent history of colon polyps. Plan to transfuse to stable hemoglobin. Avoid NSAIDs. Start patient on pantoprazole. An EGD will be performed to follow-up in assess status of possible ulcers. Stool currently Hemoccult negative suggesting no active bleeding. Further recommendations may be given after endoscopy. Follow-up colonoscopy is advised at 3-5 year intervals. (2) History of gastric ulcer: Code(s): Z87.11 - Personal history of peptic ulcer disease Status: Acute Assessment and Plan: Patient had previous ulcer documented to previously having been healed. Follow-up EGD at this time given anemia and anticoagulation. (3) History of colon polyps: Code(s): Z86.010 - Personal history of colonic polyps Status: Acute Assessment and Plan: Colon polyp identified in June 2021. Follow-up colonoscopy advised at 3-5 year intervals. No evidence for active bleeding at present as stool is Hemoccult negative. Follow-up colonoscopy only if endoscopy and other workup is negative. (4) Chronic anticoagulation: Code(s): Z79.01 - intermediate (current) use of anticoagulants Status: Acute GI Consult Note Consult date/time: 11/29/22 07:58 Reason for consult: Anemia HPI: Luis Manuel Delgado is a 52 year old male I am asked to see because rather significant anemia. Patient has a history of atherosclerotic heart disease with stents he is currently on bright lent a. He presented to cardiology yesterday stating that for the last 1-2 weeks is felt weak and has not felt well. Lab testing was performed revealing a rather profound anemia. Patient denies any obvious bleeding. States his stools have been relatively normal. In retrospect he had dark stools after eating chocolate several weeks ago. Patient has had vague intermittent upper abdominal discomfort. Recent medical history is significant that in the summer of 2021 patient had a gastric ulcer and esophagitis identified by endoscopy. He had some GI bleeding at that time. Follow-up endoscopy later in the year revealed that this at healed. Patient also has a history of colon polyps. Most recent colonoscopy June of 2021 with a benign colon polyp and internal hemorrhoids being identified. After admission the hospital patient has now received transfusion. Stool Hemoccult is negative. Review of Systems Review of Systems: Review of systems noncontributory. [facility] Past Medical History Medical History (Updated 11/29/22 @ 08:01 by Joe Villanueva MD) Abnormal reflexes Anemia Back injuries BMI 20.0-20.9, adult BMI between 19-24,adult Body mass index [BMI] 23.0-23.9, adult (05/16/16) CAD (coronary artery disease) Colonoscopy planned COPD (chronic obstructive pulmonary disease) Costochondritis Encounter for general adult medical examination with abnormal findings Folliculitis Gingivitis Hearing loss, bilateral Hematuria Hemoptysis Herniated intervertebral disc of lumbar spine Hyperlipidemia Hypertension Skin lesion Tobacco use Tonsillectomy planned Viral syndrome Weight loss Wheezing Surgical History Surgical History (Updated 11/28/22 @ 23:52 by Stacy Salinas NP) History of appendectomy History of lung biopsy History of tonsillectomy and adenoidectomy History of tooth extraction Stented coronary artery X2 Family History Family History Father Hypertension Acute myocardial infarction Dupuytrens contracture Mother Family history of malignant neoplasm of breast in first degree relative Breast cancer Sibling No problems noted. Other Di
[2022-11-29 09:16] LABS: Basophils Absolute Auto 0.1 K/mm3 (0.0-0.1); Basophils Percent Auto 0.8 % (0.2-1.2); Eosinophils Absolute Auto 0.4 K/mm3 (0-0.3); Eosinophils Percent Auto 5.9 % (0-4.4); Hematocrit 30.2 % (42.0-52.0); Hemoglobin 9.3 g/dL (14.0-18.0); Immature Granulocyte Absolute 0.02 K/mm3 (0.00-0.031); Immature Granulocyte Percent A 0.3 % (0-0.5); Lymphocytes Absolute Auto 1.41 K/mm3 (0.9-3.2); Lymphocytes Percent Auto 23.1 % (18.3-44.2); Mean Corpuscular HGB Conc 30.8 g/dl (32-36); Mean Corpuscular Hemoglobin 25.1 pg (26-34); Mean Corpuscular Volume 81.6 fl (80-100); Mean Platelet Volume 9.3 fl (7.4-10.4); Monocytes Absolute Auto 0.8 K/mm3 (0.1-0.6); Monocytes Percent Auto 12.5 % (2.6-8.5); Neutrophils Absolute Auto 3.5 K/mm3 (1.3-6.7); Neutrophils Percent Auto 57.4 % (45.5-73.1); Platelet Count Result 256 k/mm3 (150-375); Red Cell Distribution Width 18.1 % (11.5-14.5); White Blood Count 6.1 K/mm3 (4.5-10.0)
[2022-11-29 09:24] LABS: Alanine Aminotransferase 16 U/L (6-50); Albumin Level 3.4 g/dL (3.5-5.1); Alkaline Phosphatase 65 U/L (38-126); Anion Gap 4 mmol/L (8-16); Aspartate Amino Transferase 21 U/L (17-59); Bilirubin,Total 1.1 mg/dL (0.2-1.3); Blood Urea Nitrogen 7 mg/dL (9-20); Calcium 8.1 mg/dL (8.4-10.2); Carbon Dioxide 24 mmol/L (22-30); Chloride 111 mmol/L (98-107); Estimated CRCL calculation 88 ml/min; Estimated Glomerular Filt Rate > 60; Glucose 82 mg/dL (65-110); Lipase 36 U/L (23-300); Potassium 4.2 mmol/L (3.4-5.0); Sodium 139 mmol/L (137-145)
[2022-11-29 09:27] LABS: Lactic Acid Reflex 0.6 mmol/L (0.7-2.0)
--- NOTE | 2022-11-29 09:53 | PC.NURSE ---
Gave update to daughter Dee via phone
[2022-11-29 10:17] LABS: Thyroid Stimulating Hormone Reflex 0.968 uIU/mL (0.465-4.68)
--- NOTE | 2022-11-29 10:43 | PM.IMPN ---
Progress Note: A&P Assessment and Plan (1) Upper gastrointestinal bleeding: Code(s): K92.2 - Gastrointestinal hemorrhage, unspecified Status: Acute Assessment and Plan: With melena . Hemoccult test in the ER was negative. GI has been consulted Continue to monitor H&H every 6 hours. Continue NPO The patient had been on aspirin and Brilinta for cardiac stents approximately 3 years ago. these are on hold The patient has a history of peptic ulcer disease continue Protonix CT abdomen is negative for active bleed GI planning for EGD today. History of gastric ulcer and esophagitis identified endoscopy and 2021. (2) COPD (chronic obstructive pulmonary disease): Qualifiers: COPD type: unspecified COPD Qualified Code(s): J44.9 - Chronic obstructive pulmonary disease, unspecified Code(s): J44.9 - Chronic obstructive pulmonary disease, unspecified Status: Acute Assessment and Plan: The patient continues to smoke P.r.n. albuterol (3) Tobacco use: Code(s): Z72.0 - Tobacco use Status: Acute Assessment and Plan: We discussed smoking cessation for approximately 5 minutes. The patient stated he does not need a nicotine patch at this time. The patient continues to smoke a half pack a cigarettes per day. (4) CAD (coronary artery disease): Code(s): I25.10 - Atherosclerotic heart disease of [place] coronary artery without angina pectoris Status: Acute Assessment and Plan: The patient has been on aspirin and Brilinta as well as atorvastatin. The patient is currently NPO at this time. Aspirin Brilinta on hold due to severe anemia and GI bleed. (5) Hypertension: Qualifiers: Hypertension type: primary hypertension Qualified Code(s): I10 - Essential (primary) hypertension Code(s): I10 - Essential (primary) hypertension Status: Acute Assessment and Plan: Continue with lisinopril P.r.n. hydralazine while the patient is NPO (6) Hyperlipidemia: Qualifiers: Hyperlipidemia type: mixed hyperlipidemia Qualified Code(s): E78.2 - Mixed hyperlipidemia Code(s): E78.5 - Hyperlipidemia, unspecified Status: Acute Assessment and Plan: The patient is NPO and is typically on atorvastatin. Plan Coronary artery disease status post stent in 2019 COPD Lumbar disc herniation Hypertension Hyperlipidemia Subjective Date/time seen: 11/29/22 10:43 Interval history: This is a 52-year-old male patient who has a history of coronary artery disease with 2 stents on Brilinta and history of peptic ulcer disease.? The patient reported that he was seen by his well puller head and was told that he has abnormal labs.? The patient was also complaining of intermittent sharp left lower chest pain.? He is also having abdominal pain over the last 2 weeks.? The patient has not had any hematemesis or hematochezia.? The patient has been having some intermittent dizziness and lightheadedness.? He denies any fever or chills or shortness of breath.? The patient stated that he does have melena.? This has occurred for 3 days but then stopped and he has had normal stools for last 3 days.? He had a normal stool today.? The patient does take pantoprazole for the peptic ulcer disease.? The patient has had an EGD per Dr. Ching 6 months ago.? His EGD was on 04/10/2022 the patient was found to have distal esophagitis integrated gastric ulcer.? The patient was to avoid NSAIDs.? The patient was given Protonix in the emergency room.? Outpatient labs show an H&H of 7.0 in 24.3.? Patient's previous H&H on 02/20/2022 shows the H&H of 9.0 and 26.9.? Repeat H&H in the ER 6.8 and 22.9.? Most recent was 8.5 and 30.3.? When I assessed the patient he no longer had any discomfort.? Patient's iron level is 18 and saturation is 4.? Troponin is nonreactive.? Chest x-ray no acute cardiopulmonary disease.? GI has been consulted.? The patient is being admitted to observ
--- NOTE | 2022-11-29 11:42 | PM.CNCAR ---
Assessment and Plan Assessment and plan (1) CAD (coronary artery disease): Code(s): I25.10 - Atherosclerotic heart disease of [place] coronary artery without angina pectoris Status: Acute (2) Acute on chronic anemia: Code(s): D64.9 - Anemia, unspecified Status: Acute Plan ASA 81mg once daily and Brilinta 60mg BID have been on hold since admission. Since it has been >1 year since his PCI, does not need Brilinta. Recommend to restart ASA 81mg once daily once Hgb stabilizes and no concern for a bleed. Cotninue with atorvastatin. Can resume Lisinopril if no concerns for hypotension. We will arrange outpatient follow up with Dr. Leon. Cardiology will sign off at this time. Call us back if any questions. History of Present Illness History of Present Illness Consult date/time: 11/29/22 11:42 Requesting physician: Stacy Salinas NP Consult reason: Other (Acute anemia on DAPT) Reason For Visit: Anemia/PUD Narrative: We are consulted for DAPT management in the setting of acute anemia. Patient follows with Dr. Leon. He is a 52-year-old male with a history of CAD s/p mid LAD stent (3mm x 18mm TIKI) and balloon angioplasty of Diagonal vessel on 04/03/[address] Ivy. Patient also has a history of carotid artery disease, COPD, tobacco dependence. Patient saw Dr. Leon yesterday and had lab work done showing significant anemia. Patient instructed to go to ER. Hgb noted to be 6.8. GI consulted. Patient does have a history of gastric ulcer. GI is planning on EGD. Stool hemoccult negative. Review of Systems Review of Systems: All systems reviewed & are unremarkable except as noted in HPI and below (HPI) [facility] Past Medical History Medical History Abnormal reflexes Anemia Back injuries BMI 20.0-20.9, adult BMI between 19-24,adult Body mass index [BMI] 23.0-23.9, adult (05/16/16) CAD (coronary artery disease) Colonoscopy planned COPD (chronic obstructive pulmonary disease) Costochondritis Encounter for general adult medical examination with abnormal findings Folliculitis Gingivitis Hearing loss, bilateral Hematuria Hemoptysis Herniated intervertebral disc of lumbar spine Hyperlipidemia Hypertension Skin lesion Tobacco use Tonsillectomy planned Viral syndrome Weight loss Wheezing Surgical History Surgical History History of appendectomy History of lung biopsy History of tonsillectomy and adenoidectomy History of tooth extraction Stented coronary artery X2 Family History Family History Father Hypertension Acute myocardial infarction Dupuytrens contracture Mother Family history of malignant neoplasm of breast in first degree relative Breast cancer Sibling No problems noted. Other Diabetes mellitus Family history of malignant neoplasm of brain Social History Social History Social History: The patient served in the [employer]. He has 2 children. He is and lives with his . The patient is down to half a pack a cigarettes per day. 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 His is the durable power district attorney for healthcare Code status full code Smoking packs per day: 1 Smoking cigarettes per day: 20.0 Years smoked: 40 Smoking pack-years: 40.00 Smoking status: Current every day smoker Tobacco type: cigarettes Second hand tobacco smoke exposure: Yes Alcohol intake: current Drinks per week: 1 Alcohol use details: rare use Substance use: never Substance use type: does not use Lack of Transportation: No Lack of Food: Never True Current Housing: I Have Housing Concerned About Future Housing: No Difficulty Paying Gas/Electric Bills: No Difficulty Paying for Meds: No Currently Unemployed: No Educat
--- NOTE | 2022-11-29 11:45 | PC.NURSE ---
Patient off of unit to GI lab
[2022-11-29] MEDS: LACTATED RINGERS 1,000 ML 150 ML IV CONT (12:01)
--- NOTE | 2022-11-29 12:11 | WPDANESEPPF ---
Anes - Initial Pre Proc Eval Procedure: Operation Date: 11/29/22 12:30 Proposed Procedures p Esophagogastroduodenoscopy - Joe Villanueva MD Date/Time: 11/29/22 12:11 Surgeon: Olivia De La O MD Pre Op Diagnosis: Anemia/PUD Patient Data Age: 52 Gender: M Height: 1.85 m Weight: 75.75 kg Last Vital Signs Temp 98.0 F 11/29/22 12:00 Pulse 50 L 11/29/22 12:00 Resp 181 H 11/29/22 12:00 BP 125/50 L 11/29/22 12:00 Pulse Ox 97 11/29/22 12:00 O2 Del Method Room Air 11/29/22 12:00 Allergies Allergy/AdvReac Type Severity Reaction Status Date / Time succinylcholine Allergy Severe PT HAS A Verified 11/28/22 14:43 GENE THAT IS ADVERSE TO ANECTINE Home Medications Medication Instructions Recorded Confirmed Type aspirin 81 mg tablet 81 mg PO DAILY 06/16/21 11/28/22 History atorvastatin 40 mg tablet 40 mg PO HS 06/16/21 11/28/22 History lisinopril 5 mg tablet 5 mg PO BID 06/16/21 11/28/22 History ticagrelor 60 mg tablet (Brilinta) 60 mg PO BID 06/16/21 11/28/22 History pantoprazole 40 mg tablet,delayed 40 mg PO QAM 4 weeks #28 tabs 01/27/22 11/28/22 Rx release Laboratory Tests 11/28/22 11/28/22 11/28/22 13:47 13:55 13:55 WBC 10.8 K/mm3 H K/mm3 (4.5-10.0) RBC 2.72 M/mm3 L M/mm3 (4.6-6.20) Hgb 6.8 g/dL L* g/dL (14.0-18.0) Hct 22.9 % L % (42.0-52.0) MCV 84.2 fl fl (80-100) MCH 25.0 pg L pg (26-34) MCHC 29.7 g/dl L g/dl (32-36) RDW 18.7 % H % (11.5-14.5) Plt Count 363 k/mm3 k/mm3 (150-375) MPV 9.3 fl fl (7.4-10.4) Immature Gran % (Auto) 0.3 % % (0-0.5) Neut % (Auto) 71.5 % % (45.5-73.1) Lymph % (Auto) 14.4 % L % (18.3-44.2) [place] % (Auto) 9.4 % H % (2.6-8.5) Eos % (Auto) 3.9 % % (0-4.4) Baso % (Auto) 0.5 % % (0.2-1.2) Lymph # (Auto) 1.55 K/mm3 K/mm3 (0.9-3.2) [place] # (Auto) 1.0 K/mm3 H K/mm3 (0.1-0.6) Eos # (Auto) 0.4 K/mm3 H K/mm3 (0-0.3) Baso # (Auto) 0.1 K/mm3 K/mm3 (0.0-0.1) Abs Immat Gran (auto) 0.03 K/mm3 K/mm3 (0.00-0.031) Absolute Neuts (auto) 7.7 K/mm3 H K/mm3 (1.3-6.7) Absolute Nucleated RBC 0.0 K/mm3 K/mm3 (0.0-0.012) Nucleated RBC % 0.0 % % (0.0-0.2) Platelet Estimate Adequate (Adequate) Hypochromasia 2+ (NORMAL) Poikilocytosis 1+ (NORMAL) Anisocytosis 1+ (NORMAL) Target Cells 1+ (NORMAL) Ovalocytes 1+ (NORMAL) Crenated Cell 1+ (NORMAL) Schistocytes None seen (NORMAL) PT INR APTT Sodium 135 mmol/L L mmol/L (137-145) Potassium 3.5 mmol/L mmol/L (3.4-5.0) Chloride 104 mmol/L mmol/L (98-107) Carbon Dioxide 23 mmol/L mmol/L (22-30) Anion Gap 8 mmol/L mmol/L (8-16) BUN 10 mg/dL mg/dL (9-20) Creatinine 0.90 mg/dL mg/dL (0.7-1.3) Estim Creat Clear Calc 88 ml/min ml/min Estimated GFR > 60 (59 - ) Glucose 117 mg/dL H mg/dL (65-110) POC Capillary Glucose 144 mg/dl H mg/dl (65-105) Lactic Acid Calcium 8.9 mg/dL mg/dL (8.4-10.2) Iron TIBC % Saturation Total Bilirubin 0.4 mg/dL mg/dL (0.2-1.3) AST 22 U/L U/L (17-59) ALT 19 U/L U/L (6-50) Alkaline Phosphatase 76 U/L U/L (38-126) Troponin I Total Protein 7.0 g/dL g/dL (6.3-8.2) Albumin 4.5 g/dL g/dL (3.5-5.1) Lipase Vitamin B12 Folate TSH (Reflex) Urine Color Urine Appearance Urine pH Ur Specific [place] Urine Protein Urine
--- NOTE | 2022-11-29 13:00 | PC.NURSE ---
Patient returned to unit from GI lab
[2022-11-29 13:20] LABS: Hematocrit 30.8 % (42.0-52.0); Hemoglobin 9.3 g/dL (14.0-18.0)
[2022-11-29] MEDS: ATORVASTATIN 40 MG TABLET PO (20:23)
[2022-11-29] MEDS: FAMOTIDINE 20 MG TABLET PO (20:23)
[2022-11-30] MEDS: SODIUM CHLORIDE 0.9% IV 1,000 ML 125 ML IV CONT ×2 (01:14→11:45)
[2022-11-30 06:00] VITALS: BP 115/50; PULSE 50; RESP 16; TEMP 36.8; O2SAT 97
[2022-11-30 07:13] LABS: Basophils Absolute Auto 0.1 K/mm3 (0.0-0.1); Basophils Percent Auto 0.7 % (0.2-1.2); Eosinophils Absolute Auto 0.3 K/mm3 (0-0.3); Eosinophils Percent Auto 3.6 % (0-4.4); Hematocrit 28.9 % (42.0-52.0); Hemoglobin 8.6 g/dL (14.0-18.0); Immature Granulocyte Absolute 0.02 K/mm3 (0.00-0.031); Immature Granulocyte Percent A 0.3 % (0-0.5); Lymphocytes Absolute Auto 1.27 K/mm3 (0.9-3.2); Lymphocytes Percent Auto 17.8 % (18.3-44.2); Mean Corpuscular HGB Conc 29.8 g/dl (32-36); Mean Corpuscular Hemoglobin 24.6 pg (26-34); Mean Corpuscular Volume 82.8 fl (80-100); Mean Platelet Volume 9.1 fl (7.4-10.4); Monocytes Absolute Auto 0.8 K/mm3 (0.1-0.6); Monocytes Percent Auto 11.8 % (2.6-8.5); Neutrophils Absolute Auto 4.7 K/mm3 (1.3-6.7); Neutrophils Percent Auto 65.8 % (45.5-73.1); Platelet Count Result 240 k/mm3 (150-375); Red Blood Count 3.49 M/mm3 (4.6-6.20); Red Cell Distribution Width 18.4 % (11.5-14.5); White Blood Count 7.1 K/mm3 (4.5-10.0)
[2022-11-30 07:26] LABS: Alanine Aminotransferase 15 U/L (6-50); Albumin Level 3.3 g/dL (3.5-5.1); Alkaline Phosphatase 61 U/L (38-126); Anion Gap 4 mmol/L (8-16); Aspartate Amino Transferase 17 U/L (17-59); Bilirubin,Total 0.7 mg/dL (0.2-1.3); Blood Urea Nitrogen 9 mg/dL (9-20); Calcium 8.2 mg/dL (8.4-10.2); Carbon Dioxide 22 mmol/L (22-30); Chloride 112 mmol/L (98-107); Estimated CRCL calculation 88 ml/min; Estimated Glomerular Filt Rate > 60; Glucose 88 mg/dL (65-110); Magnesium 1.9 mg/dL (1.6-2.3); Sodium 138 mmol/L (137-145)
[2022-11-30] MEDS: FAMOTIDINE 20 MG TABLET PO ×2 (08:26→21:08)
[2022-11-30] MEDS: PANTOPRAZOLE SODIUM IV 40 MG VIAL IV PUSH ×2 (08:26→21:08)
[2022-11-30 09:38] LABS: Anisocytosis 1+ (NORMAL); Hypochromasia 2+ (NORMAL); Microcytosis 1+ (NORMAL); Platelet Estimate Adequate (Adequate); Target Cells 1+ (NORMAL)
[2022-11-30 09:39] LABS: Atypical Lymphocytes Present; Schistocytes Rare (NORMAL)
[2022-11-30 14:00] VITALS: BP 91/39; PULSE 67; RESP 16; TEMP 36.3; O2SAT 98
--- NOTE | 2022-11-30 14:25 | WPDGIPROGNO ---
Progress Note: A&P Assessment and Plan (1) Anemia: Code(s): D64.9 - Anemia, unspecified Status: Acute Assessment and Plan: Patient is anemic the etiology remains unclear. No recurrent ulcer by EGD. No obvious bleeding. Stool was Hemoccult negative. He may need hematology evaluation. He did have colon polyps. Colonoscopy a year and a half ago revealed internal hemorrhoids and several small benign colon polyps. Suggest follow-up CBC at [facility] discharge. Consider Hematology evaluation. Follow-up colonoscopy may need to be done if stool Hemoccult confirmed. Otherwise typically done the 3-5 year intervals. (2) Chronic anticoagulation: Code(s): Z79.01 - penitentiary (current) use of anticoagulants Status: Acute (3) History of colon polyps: Code(s): Z86.010 - Personal history of colonic polyps Status: Acute Subjective Date/time seen: 11/30/22 14:25 Interval history: Patient comfortable at rest. Denies any significant abdominal pain. Denies any blood in his stools. Tolerating diet. Anxious to go home. Review of Systems Review of Systems: Review of systems noncontributory. Exam Narrative: Physical exam reveals patient to be alert. Vital signs stable. HEENT exam is unremarkable. Patient anicteric. Lungs are clear. Heart without murmur. Abdomen bowel sounds present soft nontender. Objective Data Vital Signs Vital Signs: Vital Signs - 24 hr 11/29/22 15:46 11/29/22 22:00 11/29/22 20:00 Temperature 97.8 F 98.3 F Pulse Rate 54 L 50 L Respiratory Rate 16 16 Blood Pressure 114/59 L 105/54 L Pulse Oximetry 98 97 Oxygen Delivery Room Air 11/30/22 06:00 11/30/22 08:00 11/30/22 14:00 Temperature 98.3 F 97.4 F L Pulse Rate 50 L 67 Respiratory Rate 16 16 Blood Pressure 115/50 L 91/39 L Pulse Oximetry 97 98 Oxygen Delivery Room Air Intake/Output Intake/Output: Intake & Output 11/27/22 11/28/22 11/29/22 11/30/22 23:59 23:59 23:59 23:59 Intake Total 600 5182 1222 Output Total 1275 1700 Balance 600 9277 -324 Meds/Results Medications: Active Medications Generic Name Dose Route Start Last Admin Trade Name Freq PRN Reason Stop Dose Admin Albuterol 2 puff 11/29/22 00:00 Albuterol Sulfate (*Sp) Aerosol 1 Puff INHALATION Q6HRT PRN Shortness Of Breath Atorvastatin Calcium 40 mg 11/29/22 21:00 11/29/22 20:23 Atorvastatin 40 Mg Tablet PO 40 mg HS BRUNO Administration Famotidine 20 mg 11/29/22 21:00 11/30/22 08:26 Famotidine 20 Mg Tablet PO 20 mg Q12HR BRUNO Administration Hydralazine HCl 10 mg 11/29/22 00:02 Hydralazine Hcl 20 Mg/Ml Vial IV PUSH Q8H PRN Blood Pressure - High Sodium Chloride 1,000 mls @ 125 mls/hr 11/28/22 17:00 11/30/22 11:45 Normal Saline Iv IV CONT 125 mls/hr .Q8H BRUNO Administration Pantoprazole Sodium 40 mg 11/29/22 06:00 11/30/22 08:26 Pantoprazole Sodium Iv 40 Mg Vial IV PUSH 40 mg Q12HR BRUNO Administration Radiology Results: ITS Impressions Chest X-Ray 11/28/22 16:09 IMPRESSION: 1. No acute cardiopulmonary disease. Abdomen/Pelvis CTA 11/29/22 08:26 IMPRESSION: 1. Bowels appear normal with no evident active contrast extravasation to identify the location of a reported gastrointestinal bleed. 2. Nonspecific minimal amount of ascites in the deep pelvis. 3. 1 artery disease with small amount of fatty atrophy of the myocardium of the ventricular septum consistent with sequela of chronic infarct. Labs Labs: Laboratory Results - last 24 hr 11/28/22 11/30/22 11/30/22 14:46 06:33 06:33 WBC 7.1 RBC 3.49 L Hgb 8.6 L Hct 28.9 L MCV 82.8 MCH 24.6 L MCHC 29.8 L RDW 18.4 H Plt Count 240 MPV 9.1 Immature Gran % (Auto) 0.3 Neut % (Auto) 65.8 Lymph % (Auto) 17.8 L [place] % (Auto) 11.8 H Eos % (Auto) 3.6 Baso % (Auto) 0.7 Lymph # (Auto) 1.27 [place] # (Au
[2022-11-30 14:30] LABS: Immature Reticulocyte Fraction 29.1 % (3.0-15.9); Reticulocyte Hemoglobin Conten 25.1 pg (28.2-35.7); Reticulocyte Percent 1.72 % (0.7-4.3); Reticulocytes Absolute 0.06 B/L (32.2-175.7)
[2022-11-30 14:34] LABS: Lactate Dehydrogenase 141 U/L (120-246)
--- NOTE | 2022-11-30 14:35 | PM.IMPN ---
Progress Note: A&P Assessment and Plan (1) Upper gastrointestinal bleeding: Code(s): K92.2 - Gastrointestinal hemorrhage, unspecified Status: Acute Assessment and Plan: With melena . Hemoccult test in the ER was negative. GI has been consulted Continue to monitor H&H every 6 hours. Continue NPO The patient had been on aspirin and Brilinta for cardiac stents approximately 3 years ago. these are on hold The patient has a history of peptic ulcer disease continue Protonix CT abdomen is negative for active bleed Status post EGD which was normal History of gastric ulcer and esophagitis identified endoscopy and 2021. (2) COPD (chronic obstructive pulmonary disease): Qualifiers: COPD type: unspecified COPD Qualified Code(s): J44.9 - Chronic obstructive pulmonary disease, unspecified Code(s): J44.9 - Chronic obstructive pulmonary disease, unspecified Status: Acute Assessment and Plan: The patient continues to smoke P.r.n. albuterol (3) Tobacco use: Code(s): Z72.0 - Tobacco use Status: Acute Assessment and Plan: We discussed smoking cessation for approximately 5 minutes. The patient stated he does not need a nicotine patch at this time. The patient continues to smoke a half pack a cigarettes per day. (4) CAD (coronary artery disease): Code(s): I25.10 - Atherosclerotic heart disease of [place] coronary artery without angina pectoris Status: Acute Assessment and Plan: The patient has been on aspirin and Brilinta as well as atorvastatin. The patient is currently NPO at this time. Aspirin Brilinta on hold due to severe anemia and GI bleed. (5) Hypertension: Qualifiers: Hypertension type: primary hypertension Qualified Code(s): I10 - Essential (primary) hypertension Code(s): I10 - Essential (primary) hypertension Status: Acute Assessment and Plan: Continue with lisinopril P.r.n. hydralazine while the patient is NPO (6) Hyperlipidemia: Qualifiers: Hyperlipidemia type: mixed hyperlipidemia Qualified Code(s): E78.2 - Mixed hyperlipidemia Code(s): E78.5 - Hyperlipidemia, unspecified Status: Acute Assessment and Plan: The patient is NPO and is typically on atorvastatin. Plan Coronary artery disease status post stent in 2019 COPD Lumbar disc herniation Hypertension Hyperlipidemia Acute on chronic anemia unclear if GI bleed. H&H remained stable post transfusion. Will do anemia workup. Hematology consult Subjective Date/time seen: 11/30/22 14:35 Interval history: Feels okay. No abdominal pain. No blood in stool. Tolerating diet discussed with GI. Review of Systems Review of Systems: All systems reviewed & are unremarkable except as noted in HPI and below Exam Narrative: GENERAL: The patient is well developed, not in acute distress HEENT: Nonicteric sclerae, PERRLA, EOMI. Oropharynx clear. Moist mucous membranes. Conjunctivae appear well perfused. CHEST: Chest wall is nontender. HEART: Regular rate and rhythm without murmur, rubs, or gallops LUNGS: Clear to auscultation bilaterally. no respiratory distress ABDOMEN: Soft, positive bowel sounds, non-tender, no organomegaly. SKIN: No rash, no excessive bruising, petechiae, or purpura. NEUROLOGIC: Cranial nerves II-XII intact, alert and oriented x 3, no gross motor deficits EXTREMITIES: no edema, cyanosis or clubbing Objective Data Vital Signs Vital Signs: Vital Signs - 24 hr 11/29/22 15:46 11/29/22 22:00 11/29/22 20:00 Temperature 97.8 F 98.3 F Pulse Rate 54 L 50 L Respiratory Rate 16 16 Blood Pressure 114/59 L 105/54 L Pulse Oximetry 98 97 Oxygen Delivery Room Air 11/30/22 06:00 11/30/22 08:00 11/30/22 14:00 Temperature 98.3 F 97.4 F L Pulse Rate 50 L 67 Respiratory Rate 16 16 Blood Pressure 115/50 L 91/39 L Pulse Oximetry 97 98 Oxygen Delivery Room Air Intake/Output In
[2022-11-30 14:47] LABS: Iron 19 ug/dL (49-181)
[2022-11-30 15:00] LABS: Percent Iron Saturation 5 % (20-50)
--- NOTE | 2022-11-30 17:49 | PDONCCN ---
HPI - Date of Consult Date/Time: 11/30/22 17:49 Requesting Physician: Olivia De La O MD Primary Care Provider: Dillon Payne MD - Consult Narrative Reason for consult: Iron deficiency anemia Narrative: Luis Manuel Delgado is a 52 year old male with history of anemia diagnosed 2 years ago and had EGD and colonoscopy done at that time. He was on iron replacement therapy was discontinued 1 year ago with improvement in hemoglobin. He also has history of coronary artery disease status post stent placement currently on Brilinta and aspirin. Patient also has a history of peptic ulcer disease. He came into the hospital with complain of left lower chest pain and abdominal pain. He denies any melena hematochezia. He was having intermittent lightheadedness and dizziness. Labs showed hemoglobin of 6.8. Patient received 3 units of packed red blood cell transfusion. EGD was performed that came back normal. Previous esophagitis and ulceration have healed. Patient informed me that he has some bleeding from the tailbone area. Denies any other new complaints. Review of Systems - Review of Systems All systems reviewed & are unremarkable except as noted in HPI and bel - Neurologic Reports system reviewed and no additional complaints, except as documented, Reports hearing normal, Denies syncope, Denies focal weakness, Denies weakness PMFSH Medical History: Medical History (Last Reviewed 11/29/22 @ 11:47 by Robert Trevino MD) Abnormal reflexes Anemia Back injuries BMI 20.0-20.9, adult BMI between 19-24,adult Body mass index [BMI] 23.0-23.9, adult Onset Date: 05/16/16 CAD (coronary artery disease) Colonoscopy planned COPD (chronic obstructive pulmonary disease) Costochondritis Encounter for general adult medical examination with abnormal findings Folliculitis Gingivitis Hearing loss, bilateral Hematuria Hemoptysis Herniated intervertebral disc of lumbar spine Hyperlipidemia Hypertension Skin lesion Tobacco use Tonsillectomy planned Viral syndrome Weight loss Wheezing Surgical History: Surgical History (Last Reviewed 11/29/22 @ 11:47 by Robert Trevino MD) History of appendectomy History of lung biopsy History of tonsillectomy and adenoidectomy History of tooth extraction Stented coronary artery X2 Family History: Family History (Last Reviewed 11/29/22 @ 11:47 by Robert Trevino MD) Father Hypertension Acute myocardial infarction Dupuytrens contracture Mother Family history of malignant neoplasm of breast in first degree relative Breast cancer Sibling No problems noted. Other Diabetes mellitus Family history of malignant neoplasm of brain - Social History Social History: Social History (Last Reviewed 11/29/22 @ 11:47 by Robert Trevino MD) Gender Identity: Gender identity (if verbalized by the patient): Male Alcohol Use: Alcohol intake: current Drinks per week: 1 Alcohol use details: rare use Substance Use: Substance use: never Substance use type: does not use Others: Spiritual care concerns: No Living Arrangements: Living arrangements: with family Oppucation/Education: Occupation/Education: occupation Smoking Status: Smoking status: Current every day smoker Tobacco type: cigarettes Second hand tobacco smoke exposure: Yes Smoking Pack-years: Smoking packs per day: 1 Smoking cigarettes per day: 20.0 Years smoked: 40 Smoking pack-years: 40.00 Social Determinants of Health: Has the Lack of Transportation Kept You From Medical Appointments or From Getting Medications?: No Within the Past 12 Months, Were You Worried Whether Your Food Would Run Out Before You Got Money to Buy More?: Never True What is Your Housing Situation Today?: I Have Housing Are You Worried That in the Next 2 Months, You May Not Have Your Own Housing to Live In?: No Do You Have Trouble P
[2022-11-30 19:59] LABS: Folic Acid 6.9 ng/mL (2.76->20)
[2022-11-30 20:07] VITALS: BP 107/43; PULSE 65; RESP 16; TEMP 36.2; O2SAT 97
[2022-11-30] MEDS: ATORVASTATIN 40 MG TABLET PO (21:08)
[2022-11-30] MEDS: IRON SUCROSE COMPLEX 500 MG in SODIUM CHLORIDE 0.9% IV 250 ML 78.57 MG IVPB (21:57)
[2022-12-01 05:47] VITALS: BP 144/58; PULSE 60; RESP 18; TEMP 36.9; O2SAT 99
[2022-12-01 07:12] LABS: Basophils Percent Auto 0.4 % (0.2-1.2); Eosinophils Absolute Auto 0.2 K/mm3 (0-0.3); Eosinophils Percent Auto 1.9 % (0-4.4); Hematocrit 30.7 % (42.0-52.0); Hemoglobin 9.5 g/dL (14.0-18.0); Immature Granulocyte Absolute 0.06 K/mm3 (0.00-0.031); Immature Granulocyte Percent A 0.5 % (0-0.5); Lymphocytes Absolute Auto 0.33 K/mm3 (0.9-3.2); Mean Corpuscular HGB Conc 30.9 g/dl (32-36); Mean Corpuscular Hemoglobin 25.3 pg (26-34); Mean Corpuscular Volume 81.9 fl (80-100); Mean Platelet Volume 9.3 fl (7.4-10.4); Monocytes Absolute Auto 0.7 K/mm3 (0.1-0.6); Monocytes Percent Auto 5.9 % (2.6-8.5); Neutrophils Absolute Auto 9.8 K/mm3 (1.3-6.7); Neutrophils Percent Auto 88.3 % (45.5-73.1); Platelet Count Result 246 k/mm3 (150-375); Red Blood Count 3.75 M/mm3 (4.6-6.20); Red Cell Distribution Width 18.2 % (11.5-14.5); White Blood Count 11.1 K/mm3 (4.5-10.0)
[2022-12-01 07:15] LABS: Alanine Aminotransferase 17 U/L (6-50); Albumin Level 3.7 g/dL (3.5-5.1); Alkaline Phosphatase 70 U/L (38-126); Anion Gap 3 mmol/L (8-16); Aspartate Amino Transferase 22 U/L (17-59); Bilirubin,Total 0.8 mg/dL (0.2-1.3); Blood Urea Nitrogen 9 mg/dL (9-20); Calcium 8.4 mg/dL (8.4-10.2); Carbon Dioxide 25 mmol/L (22-30); Chloride 107 mmol/L (98-107); Estimated CRCL calculation 88 ml/min; Estimated Glomerular Filt Rate > 60; Glucose 92 mg/dL (65-110); Magnesium 1.7 mg/dL (1.6-2.3); Potassium 3.8 mmol/L (3.4-5.0); Sodium 135 mmol/L (137-145)
[2022-12-01 07:46] LABS: Anisocytosis 1+ (NORMAL); Burr Cells 1+ (NORMAL); Hypochromasia 1+ (NORMAL); Platelet Estimate Adequate (Adequate); Schistocytes None Seen (NORMAL)
[2022-12-01] MEDS: FAMOTIDINE 20 MG TABLET PO (09:18)
[2022-12-01] MEDS: PANTOPRAZOLE SODIUM IV 40 MG VIAL IV PUSH (09:18)
[2022-12-01] MEDS: IRON SUCROSE COMPLEX 500 MG in SODIUM CHLORIDE 0.9% IV 250 ML 78.57 MG IVPB (12:20)
--- NOTE | 2022-12-01 13:33 | WPDGIPROGNO ---
Progress Note: A&P Assessment and Plan (1) Anemia: Code(s): D64.9 - Anemia, unspecified Status: Acute Assessment and Plan: Patient with anemia. Iron indices appear diminished. Hematology now following. Iron infusion in place. Stools Hemoccult on recent exam. EGD now normal. He has a history of a gastric ulcer year or so ago. Patient does have several benign polyps removed from the colon at recent colonoscopy. Internal hemorrhoids noted at that time. Follow-up colonoscopy advised in 3-5 years. (2) Chronic anticoagulation: Code(s): Z79.01 - [facility] (current) use of anticoagulants Status: Acute (3) History of colon polyps: Code(s): Z86.010 - Personal history of colonic polyps Status: Acute Assessment and Plan: Benign colon polyps identified in the fall 1. Plan for follow-up colonoscopy in 5 years intervals. Subjective Date/time seen: 12/01/22 13:33 Interval history: Patient alert comfortable this morning. States he had chills last evening. Denies any obvious bleeding. No ongoing abdominal discomfort. Review of Systems Review of Systems: Review of systems noncontributory. Exam Narrative: Physical exam reveals patient be alert comfortable at rest. HEENT exam reveals no icterus. Lungs are clear. Heart without murmur. Abdomen bowel sounds present soft nontender with no organomegaly. Objective Data Vital Signs Vital Signs: Vital Signs - 24 hr 11/30/22 14:00 11/30/22 20:07 11/30/22 20:00 Temperature 97.4 F L 97.2 F L Pulse Rate 67 65 Respiratory Rate 16 16 Blood Pressure 91/39 L 107/43 L Pulse Oximetry 98 97 Oxygen Delivery Room Air 12/01/22 05:47 12/01/22 08:00 Temperature 98.4 F Pulse Rate 60 Respiratory Rate 18 Blood Pressure 144/58 H Pulse Oximetry 99 Oxygen Delivery Room Air Intake/Output Intake/Output: Intake & Output 11/28/22 11/29/22 11/30/22 12/01/22 23:59 23:59 23:59 23:59 Intake Total 600 0182 2294 275 Output Total 1275 1950 600 Balance 600 3907 344 -325 Meds/Results Medications: Active Medications Generic Name Dose Route Start Last Admin Trade Name Freq PRN Reason Stop Dose Admin Albuterol 2 puff 11/29/22 00:00 Albuterol Sulfate (*Sp) Aerosol 1 Puff INHALATION Q6HRT PRN Shortness Of Breath Atorvastatin Calcium 40 mg 11/29/22 21:00 11/30/22 21:08 Atorvastatin 40 Mg Tablet PO 40 mg HS BRUNO Administration Famotidine 20 mg 11/29/22 21:00 12/01/22 09:18 Famotidine 20 Mg Tablet PO 20 mg Q12HR BRUNO Administration Hydralazine HCl 10 mg 11/29/22 00:02 Hydralazine Hcl 20 Mg/Ml Vial IV PUSH Q8H PRN Blood Pressure - High Iron Sucrose 500 mg/ Sodium 275 mls @ 78.571 mls/hr 11/30/22 21:50 12/01/22 12:20 Chloride IVPB 12/01/22 15:29 78.57 mls/hr Q12HR BRUNO Administration Pantoprazole Sodium 40 mg 11/29/22 06:00 12/01/22 09:18 Pantoprazole Sodium Iv 40 Mg Vial IV PUSH 40 mg Q12HR BRUNO Administration Radiology Results: ITS Impressions Chest X-Ray 11/28/22 16:09 IMPRESSION: 1. No acute cardiopulmonary disease. Abdomen/Pelvis CTA 11/29/22 08:26 IMPRESSION: 1. Bowels appear normal with no evident active contrast extravasation to identify the location of a reported gastrointestinal bleed. 2. Nonspecific minimal amount of ascites in the deep pelvis. 3. 1 artery disease with small amount of fatty atrophy of the myocardium of the ventricular septum consistent with sequela of chronic infarct. Labs Labs: Laboratory Results - last 24 hr 11/30/22 11/30/22 11/30/22 14:16 14:16 14:16 WBC RBC Hgb Hct MCV MCH MCHC RDW Plt Count MPV Immature Gran % (Auto) Neut % (Auto) Lymph % (Auto) [place] % (Auto) Eos % (Auto) Baso % (Auto) Lymph # (Auto) [place] # (Auto) Eos # (Auto) Baso # (Auto) Abs Immat Gran (auto) Absolute Neuts
[2022-12-01 14:00] VITALS: BP 115/50; PULSE 55; RESP 20; TEMP 37.4; O2SAT 94
--- NOTE | 2022-12-01 16:41 | PM.DS ---
DS: Admitting Diagnosis Discharge Date 12/01/2022 Admitting Diagnosis Anemia DS: Discharge Diagnosis Discharge Diagnosis (1) Upper gastrointestinal bleeding: Code(s): K92.2 - Gastrointestinal hemorrhage, unspecified Status: Acute (2) COPD (chronic obstructive pulmonary disease): Qualifiers: COPD type: unspecified COPD Qualified Code(s): J44.9 - Chronic obstructive pulmonary disease, unspecified Code(s): J44.9 - Chronic obstructive pulmonary disease, unspecified Status: Acute (3) Tobacco use: Code(s): Z72.0 - Tobacco use Status: Acute (4) CAD (coronary artery disease): Code(s): I25.10 - Atherosclerotic heart disease of [place] coronary artery without angina pectoris Status: Acute (5) Hypertension: Qualifiers: Hypertension type: primary hypertension Qualified Code(s): I10 - Essential (primary) hypertension Code(s): I10 - Essential (primary) hypertension Status: Acute (6) Hyperlipidemia: Qualifiers: Hyperlipidemia type: mixed hyperlipidemia Qualified Code(s): E78.2 - Mixed hyperlipidemia Code(s): E78.5 - Hyperlipidemia, unspecified Status: Acute DS: Summary Hospital Course Hospital Course: # Upper gastrointestinal bleeding: With melena? .? Hemoccult test however in the ER was negative. GI has been consulted Continue to monitor H&H every 6 hours. ? Continue NPO The patient had been on aspirin and Brilinta for cardiac stents approximately 3 years ago. these are on hold The patient has a history of peptic ulcer disease ?continue Protonix CT abdomen is negative for active bleed Status post EGD which was normal ? History of gastric ulcer and esophagitis identified endoscopy and 2021. Hematology was consulted for anemia # COPD: The patient continues to smoke P.r.n. albuterol # tobacco abuse: We discussed smoking cessation for approximately 5 minutes.? The patient stated he does not need a nicotine patch at this time.? The patient continues to smoke a half pack a cigarettes per day. # coronary artery disease: The patient has been on aspirin and Brilinta as well as atorvastatin. The patient is currently NPO at this time. Aspirin Brilinta on hold due to severe anemia and GI bleed. Cardiology recommended stopping better in the pulmonary sleep. Resume aspirin at discharge. # hypertension: Continue with lisinopril P.r.n. hydralazine while the patient is NPO # hyperlipidemia:Atorvastatin. # coronary artery disease status post stent in 2019 # Lumbar disc herniation # acute on chronic anemia unclear if? GI bleed.? H&H remained stable post transfusion.? Anemia workup iron deficiency noted. Hematology consulted. Ferrous sulfate and vitamin-C at discharge. Follow-up with Hematology as outpatient basis Time Spent with Patient Time attestation: Total time spent providing and/or coordinating discharge services: 40 minutes Exam Narrative: GENERAL: The patient is well developed, not in acute distress HEENT: Nonicteric sclerae, PERRLA, EOMI. Oropharynx clear. Moist mucous membranes. Conjunctivae appear well perfused. CHEST: Chest wall is nontender. HEART: Regular rate and rhythm without murmur, rubs, or gallops LUNGS: Clear to auscultation bilaterally. no respiratory distress ABDOMEN: Soft, positive bowel sounds, non-tender, no organomegaly. SKIN: No rash, no excessive bruising, petechiae, or purpura. NEUROLOGIC: Cranial nerves II-XII intact, alert and oriented x 3, no gross motor deficits EXTREMITIES: no edema, cyanosis or clubbing DS: Data Data Completed and Pending Labs on day of discharge: Labs from last 24 hours 12/01/22 12/01/22 11/30/22 06:36 06:36 18:21 WBC 11.1 H RBC 3.75 L Hgb 9.5 L Hct 30.7 L MCV 81.9 MCH 25.3 L MCHC 30.9 L RDW 18.2 H Plt Count 246 MPV 9.3 Immature Gran % (Auto) 0.5 Neut % (Auto) 88.3 H Lymph % (Auto) 3.0 L [place] % (Auto) 5.9
[2022-12-03 13:53] LABS: Haptoglobin 148 mg/dL (43-212)
== END 2022-12-01 18:15 | disposition home or self-care (01) | DRG 378 ==
LOC: ANHED 14:58 → ANH3MEDSUR 17:33
PROVIDERS: Emergency Medicine; Internal Medicine Gastroenterology; Internal Medicine Hematology & Oncology; Nurse Practitioner; Admitting Provider Family Medicine; Emergency Provider General Practice; PCP Family Medicine; Visit Provider Internal Medicine
PROC: 0DJ08ZZ Inspection of Upper Intestinal Tract, Via Natural or Artificial Opening Endoscopic (ICD-10-PCS; CPT 43235; principal; 2022-11-29 12:30)
DX: K92.2 Gastrointestinal hemorrhage, unspecified (principal); D62 Acute posthemorrhagic anemia; K92.1 Melena; D50.9 Iron deficiency anemia, unspecified; E78.5 Hyperlipidemia, unspecified; F17.210 Nicotine dependence, cigarettes, uncomplicated; H91.90 Unspecified hearing loss, unspecified ear; I25.10 Atherosclerotic heart disease of native coronary artery without angina pectoris; I10 Essential (primary) hypertension; J44.9 Chronic obstructive pulmonary disease, unspecified; Z79.02 Long term (current) use of antithrombotics/antiplatelets; Z95.5 Presence of coronary angioplasty implant and graft; Z87.11 Personal history of peptic ulcer disease; Z79.82 Long term (current) use of aspirin; Z86.010 Personal history of colon polyps
CPT/HCPCS: 36415; 36430; 71045; 74174; 80053; 81003; 82607; 82728; 82746; 82948; 83010; 83540; 83550; 83605; 83615; 83690; 83735; 84443; 84484; 85014; 85018; 85025; 85046; 85610; 85730; 86850; 86900; 86901; 86923; 87081; 93005; 96361; 96374; 96375; 96376; 99285; A9270; C9113; G0378; J0131; J1756; J2704; J7030; J7040; J7050; J7120; P9016; Q9967

== ENCOUNTER 2022-12-06 13:41 | Outpatient (CLI) | payer OTHER, SELFPAY ==
[2022-12-06 14:36] LABS: Basophils Absolute Auto 0.1 K/mm3 (0.0-0.1); Basophils Percent Auto 0.5 % (0.2-1.2); Eosinophils Absolute Auto 0.4 K/mm3 (0-0.3); Eosinophils Percent Auto 2.6 % (0-4.4); Hematocrit 35.5 % (42.0-52.0); Hemoglobin 10.7 g/dL (14.0-18.0); Immature Granulocyte Absolute 0.07 K/mm3 (0.00-0.031); Immature Granulocyte Percent A 0.4 % (0-0.5); Lymphocytes Absolute Auto 1.12 K/mm3 (0.9-3.2); Lymphocytes Percent Auto 6.9 % (18.3-44.2); Mean Corpuscular HGB Conc 30.1 g/dl (32-36); Mean Corpuscular Hemoglobin 26.8 pg (26-34); Mean Corpuscular Volume 88.8 fl (80-100); Mean Platelet Volume 9.6 fl (7.4-10.4); Monocytes Absolute Auto 1.2 K/mm3 (0.1-0.6); Monocytes Percent Auto 7.5 % (2.6-8.5); Neutrophils Absolute Auto 13.4 K/mm3 (1.3-6.7); Neutrophils Percent Auto 82.1 % (45.5-73.1); Platelet Count Result 328 k/mm3 (150-375); Red Cell Distribution Width 22.2 % (11.5-14.5); White Blood Count 16.3 K/mm3 (4.5-10.0)
[2022-12-06 16:55] LABS: Platelet Estimate Adequate (Adequate)
[2022-12-06 16:56] LABS: Hypochromasia 1+ (NORMAL)
[2022-12-06 16:57] LABS: Anisocytosis 3+ (NORMAL)
[2022-12-06 16:59] LABS: Schistocytes Rare (NORMAL)
[2022-12-06 17:00] LABS: Acanthocytes 1+ (NORMAL)
== END 2022-12-06 13:42 | disposition home or self-care (01) ==
LOC: ANHLAB 13:42
PROVIDERS: PCP Family Medicine; Visit Provider Internal Medicine
DX: D64.9 Anemia, unspecified (principal)
CPT/HCPCS: 36415; 85025

== ENCOUNTER 2022-12-07 11:48 | Outpatient (CLI) | payer OTHER, SELFPAY ==
[2022-12-07 13:01] LABS: Prostate Specific Antigen 0.4 ng/mL (< OR = 4.0)
== END 2022-12-07 11:49 | disposition home or self-care (01) ==
LOC: ANHLAB 11:49
PROVIDERS: PCP Family Medicine; Visit Provider Nurse Practitioner Family
DX: N53.19 Other ejaculatory dysfunction (principal); R33.9 Retention of urine, unspecified
CPT/HCPCS: 36415; 84153

== ENCOUNTER 2023-02-20 11:07 | Outpatient (CLI) | payer OTHER, SELFPAY ==
[2023-02-20 11:17] LABS: Basophils Absolute Auto 0.1 K/mm3 (0.0-0.1); Basophils Percent Auto 0.6 % (0.2-1.2); Eosinophils Absolute Auto 0.4 K/mm3 (0-0.3); Eosinophils Percent Auto 4.9 % (0-4.4); Hematocrit 43.1 % (42.0-52.0); Hemoglobin 14.4 g/dL (14.0-18.0); Immature Granulocyte Absolute 0.03 K/mm3 (0.00-0.031); Immature Granulocyte Percent A 0.4 % (0-0.5); Lymphocytes Absolute Auto 1.84 K/mm3 (0.9-3.2); Mean Corpuscular HGB Conc 33.4 g/dl (32-36); Mean Corpuscular Volume 95.8 fl (80-100); Mean Platelet Volume 8.5 fl (7.4-10.4); Monocytes Absolute Auto 0.8 K/mm3 (0.1-0.6); Monocytes Percent Auto 9.7 % (2.6-8.5); Neutrophils Absolute Auto 5.2 K/mm3 (1.3-6.7); Neutrophils Percent Auto 62.4 % (45.5-73.1); Platelet Count Result 282 k/mm3 (150-375); Red Cell Distribution Width 19.3 % (11.5-14.5); White Blood Count 8.4 K/mm3 (4.5-10.0)
[2023-02-20 16:22] LABS: Iron 98 ug/dL (49-181)
[2023-02-20 16:28] LABS: Alanine Aminotransferase 28 U/L (6-50); Albumin Level 4.7 g/dL (3.5-5.1); Alkaline Phosphatase 88 U/L (38-126); Anion Gap 6 mmol/L (8-16); Aspartate Amino Transferase 28 U/L (17-59); Bilirubin,Total 0.6 mg/dL (0.2-1.3); Blood Urea Nitrogen 21 mg/dL (9-20); Calcium 9.2 mg/dL (8.4-10.2); Carbon Dioxide 29 mmol/L (22-30); Chloride 100 mmol/L (98-107); Estimated Glomerular Filt Rate > 60; Glucose 78 mg/dL (65-110); Potassium 4.5 mmol/L (3.4-5.0); Sodium 135 mmol/L (137-145)
[2023-02-20 16:40] LABS: Percent Iron Saturation 37 % (20-50)
[2023-02-20 17:36] LABS: Folic Acid 4.5 ng/mL (2.76->20)
== END 2023-02-20 11:08 | disposition home or self-care (01) ==
LOC: ANHLAB 11:08
PROVIDERS: PCP Family Medicine; Visit Provider Internal Medicine Hematology & Oncology
DX: D64.9 Anemia, unspecified (principal)
CPT/HCPCS: 36415; 80053; 82607; 82728; 82746; 83540; 83550; 85025

== ENCOUNTER 2023-06-04 14:08 | Outpatient (CLI) | payer OTHER, SELFPAY ==
[2023-06-04 14:30] LABS: Basophils Absolute Auto 0.1 K/mm3 (0.0-0.1); Basophils Percent Auto 0.4 % (0.2-1.2); Eosinophils Absolute Auto 0.2 K/mm3 (0-0.3); Eosinophils Percent Auto 1.9 % (0-4.4); Hemoglobin 14.1 g/dL (14.0-18.0); Immature Granulocyte Absolute 0.05 K/mm3 (0.00-0.031); Immature Granulocyte Percent A 0.4 % (0-0.5); Lymphocytes Absolute Auto 1.62 K/mm3 (0.9-3.2); Lymphocytes Percent Auto 13.1 % (18.3-44.2); Mean Corpuscular HGB Conc 34.4 g/dl (32-36); Mean Corpuscular Hemoglobin 35.4 pg (26-34); Mean Platelet Volume 8.9 fl (7.4-10.4); Monocytes Absolute Auto 0.8 K/mm3 (0.1-0.6); Monocytes Percent Auto 6.1 % (2.6-8.5); Neutrophils Absolute Auto 9.6 K/mm3 (1.3-6.7); Neutrophils Percent Auto 78.1 % (45.5-73.1); Platelet Count Result 288 k/mm3 (150-375); Red Blood Count 3.98 M/mm3 (4.6-6.20); Red Cell Distribution Width 12.3 % (11.5-14.5); White Blood Count 12.3 K/mm3 (4.5-10.0)
[2023-06-04 16:52] LABS: Iron 94 ug/dL (49-181)
[2023-06-04 17:02] LABS: Percent Iron Saturation 35 % (20-50)
[2023-06-04 18:00] LABS: Folic Acid 4.7 ng/mL (2.76->20); Vitamin B12 > 1000.0 pg/mL (239-931)
== END 2023-06-04 14:09 | disposition home or self-care (01) ==
LOC: ANHLAB 14:10
PROVIDERS: PCP Family Medicine; Visit Provider Internal Medicine Hematology & Oncology
DX: D64.9 Anemia, unspecified (principal)
CPT/HCPCS: 36415; 82607; 82728; 82746; 83540; 83550; 85025

== ENCOUNTER 2023-09-06 11:39 | Outpatient (CLI) | payer OTHER, SELFPAY ==
[2023-09-06 12:14] LABS: Hematocrit 45.5 % (42.0-52.0); Hemoglobin 15.2 g/dL (14.0-18.0); Mean Corpuscular HGB Conc 33.4 g/dl (32-36); Mean Corpuscular Hemoglobin 34.8 pg (26-34); Mean Corpuscular Volume 104.1 fl (80-100); Mean Platelet Volume 8.8 fl (7.4-10.4); Platelet Count Result 312 k/mm3 (150-375); Red Blood Count 4.37 M/mm3 (4.6-6.20); Red Cell Distribution Width 12.5 % (11.5-14.5)
[2023-09-06 12:20] LABS: Potassium 4.2 mmol/L (3.4-5.0)
[2023-09-06 12:22] LABS: Appearance Urine Clear (Clear); Bacteria Urine None Seen /hpf; Bilirubin Urine Negative (Negative); Color Urine Yellow (Yellow); Glucose Urine UA Negative (Negative); Ketones Urine Negative (Negative); Leukocyte Esterase Ur Negative LEU/UL (Negative); Nitrate Urine Negative (Negative); Non Pathogenic Casts 0-2; Protein Urine Negative (Negative); RBC Urine 0-2 /hpf (0-2); Specific Grav Ur 1.007 (1.001-1.035); Squamous Epithelial Cell Urine None seen /hpf (Few); Urobilinogen Urine 0.2 mg/dL (<2.0); WBC Urine 0-5 /hpf
[2023-09-06 12:24] LABS: Alanine Aminotransferase 33 U/L (6-50); Albumin Level 4.5 g/dL (3.5-5.1); Alkaline Phosphatase 95 U/L (38-126); Anion Gap 6 mmol/L (8-16); Aspartate Amino Transferase 31 U/L (17-59); Bilirubin,Total 0.6 mg/dL (0.2-1.3); Blood Urea Nitrogen 11 mg/dL (9-20); Calcium 9.7 mg/dL (8.4-10.2); Carbon Dioxide 31 mmol/L (22-30); Chloride 102 mmol/L (98-107); Cholesterol 112 mg/dL (0-200); Estimated Glomerular Filt Rate > 60; Glucose 93 mg/dL (65-110); HDL Direct 52 mg/dL; Sodium 139 mmol/L (137-145); Triglycerides 49 mg/dL (<150)
[2023-09-06 12:25] LABS: Add Urine Microscopic? YES
[2023-09-06 12:32] LABS: LDL Cholesterol Direct 51 mg/dL
[2023-09-06 12:52] LABS: Thyroid Stimulating Hormone 0.905 uIU/mL (0.465-4.680)
[2023-09-06 13:28] LABS: Folic Acid 4.9 ng/mL (2.76->20)
== END 2023-09-06 11:40 | disposition home or self-care (01) ==
LOC: ANHLAB 11:41
PROVIDERS: PCP Family Medicine; Visit Provider Nurse Practitioner Adult Health
DX: Z00.00 Encounter for general adult medical examination without abnormal findings (principal)
CPT/HCPCS: 36415; 80048; 80061; 80076; 81001; 82607; 82746; 84443; 85027

== ENCOUNTER 2023-09-19 13:45 | Outpatient (CLI) | payer OTHER, SELFPAY ==
[2023-09-19 14:22] LABS: Hematocrit 43.3 % (42.0-52.0); Hemoglobin 14.3 g/dL (14.0-18.0); Mean Corpuscular Hemoglobin 34.3 pg (26-34); Mean Corpuscular Volume 103.8 fl (80-100); Mean Platelet Volume 8.9 fl (7.4-10.4); Platelet Count Result 297 k/mm3 (150-375); Red Blood Count 4.17 M/mm3 (4.6-6.20); Red Cell Distribution Width 12.6 % (11.5-14.5); White Blood Count 12.7 K/mm3 (4.5-10.0)
== END 2023-09-19 13:46 | disposition home or self-care (01) ==
LOC: ANHLAB 13:47
PROVIDERS: PCP Family Medicine; Visit Provider Nurse Practitioner Adult Health
DX: D72.829 Elevated white blood cell count, unspecified (principal)
CPT/HCPCS: 36415; 85027

== ENCOUNTER 2023-10-04 12:31 | Outpatient (CLI) | payer OTHER, SELFPAY ==
--- NOTE | ~2023-10-04 | US_ITS ---
EXAMINATION: US carotid duplex BI DATE: 10/04/2023 13:43 INDICATION: Bilateral carotid artery stenosis TECHNIQUE: Grayscale, color Doppler, and pulsed Doppler images of the cervical carotid arteries were obtained. The degree of vessel stenosis is placed in one of the following categories: normal, <50%, 5 0-69%, >=70% but less than near-occlusion, near-occlusion, or total occlusion. Note that percent sten osis relative to normal distal artery lumen diameter is indirectly measured from velocity measurement s as described by Bernard, et al. Radiology 2003; 229:340-346. COMPARISON: 07/25/2022 FINDINGS: RIGHT: The right common carotid artery (CCA) peak systolic velocity (PSV) is 144 cm/s. The right internal ca rotid artery (ICA) PSV is 127 cm/s. The right ICA end-diastolic velocity (EDV) is 32 cm/s. The right ICA/CCA PSV ratio is 0.9. Grayscale and color Doppler images yield an estimate of 50-69% diameter red uction from plaque in the ICA. The external carotid artery (ECA) PSV is 153 cm/s. There is antegrade flow in the right vertebral artery. LEFT: The left CCA PSV is 162 cm/s. The left ICA PSV is 145 cm/s. The left ICA EDV is 34 cm/s. The left ICA /CCA PSV ratio is 0.9. Grayscale and color Doppler images yield an estimate of 50-69% diameter reduct ion from plaque in the ICA. The ECA PSV is 151 cm/s. There is antegrade flow in the left vertebral ar franky. IMPRESSION: 1. Unchanged 50-69% stenosis in the right internal carotid artery. 2. Unchanged 50-69% stenosis in the left internal carotid artery. Reviewed, dictated and finalized at location A. S DESIGNER
[2023-10-04 14:24] LABS: Basophils Absolute Auto 0.1 K/mm3 (0.0-0.1); Basophils Percent Auto 0.5 % (0.2-1.2); Eosinophils Absolute Auto 0.4 K/mm3 (0-0.3); Eosinophils Percent Auto 3.6 % (0-4.4); Hematocrit 43.9 % (42.0-52.0); Hemoglobin 14.2 g/dL (14.0-18.0); Immature Granulocyte Absolute 0.11 K/mm3 (0.00-0.031); Immature Granulocyte Percent A 0.9 % (0-0.5); Lymphocytes Absolute Auto 1.79 K/mm3 (0.9-3.2); Lymphocytes Percent Auto 14.5 % (18.3-44.2); Mean Corpuscular HGB Conc 32.3 g/dl (32-36); Mean Corpuscular Hemoglobin 33.8 pg (26-34); Mean Corpuscular Volume 104.5 fl (80-100); Mean Platelet Volume 8.9 fl (7.4-10.4); Monocytes Absolute Auto 1.1 K/mm3 (0.1-0.6); Monocytes Percent Auto 8.8 % (2.6-8.5); Neutrophils Absolute Auto 8.8 K/mm3 (1.3-6.7); Neutrophils Percent Auto 71.7 % (45.5-73.1); Platelet Count Result 301 k/mm3 (150-375); Red Cell Distribution Width 12.8 % (11.5-14.5); White Blood Count 12.3 K/mm3 (4.5-10.0)
[2023-10-04 15:36] LABS: Iron 106 ug/dL (49-181)
[2023-10-04 15:45] LABS: Percent Iron Saturation 48 % (20-50)
== END 2023-10-04 12:32 | disposition home or self-care (01) ==
LOC: ANHIMG 12:32
PROVIDERS: Nurse Practitioner Adult Health; PCP Family Medicine; Visit Provider Internal Medicine Cardiovascular Disease
DX: D64.9 Anemia, unspecified (principal); I65.23 Occlusion and stenosis of bilateral carotid arteries
CPT/HCPCS: 36415; 83540; 83550; 85025; 93880

== ENCOUNTER 2023-11-29 15:23 | Outpatient (CLI) | payer OTHER, SELFPAY ==
[2023-11-29 15:41] LABS: Basophils Absolute Auto 0.1 K/mm3 (0.0-0.1); Basophils Percent Auto 0.6 % (0.2-1.2); Eosinophils Absolute Auto 0.5 K/mm3 (0-0.3); Eosinophils Percent Auto 4.3 % (0-4.4); Hematocrit 42.9 % (42.0-52.0); Hemoglobin 14.6 g/dL (14.0-18.0); Immature Granulocyte Absolute 0.05 K/mm3 (0.00-0.031); Immature Granulocyte Percent A 0.4 % (0-0.5); Lymphocytes Absolute Auto 2.01 K/mm3 (0.9-3.2); Lymphocytes Percent Auto 17.4 % (18.3-44.2); Mean Corpuscular Hemoglobin 35.3 pg (26-34); Mean Corpuscular Volume 103.6 fl (80-100); Mean Platelet Volume 8.7 fl (7.4-10.4); Monocytes Percent Auto 8.3 % (2.6-8.5); Platelet Count Result 313 k/mm3 (150-375); Red Blood Count 4.14 M/mm3 (4.6-6.20); Red Cell Distribution Width 12.7 % (11.5-14.5); White Blood Count 11.5 K/mm3 (4.5-10.0)
[2023-11-29 18:43] LABS: Iron 101 ug/dL (49-181)
[2023-11-29 18:45] LABS: Anion Gap 6 mmol/L (8-16); Blood Urea Nitrogen 11 mg/dL (9-20); Calcium 9.8 mg/dL (8.4-10.2); Carbon Dioxide 30 mmol/L (22-30); Chloride 105 mmol/L (98-107); Estimated Glomerular Filt Rate > 60; Glucose 91 mg/dL (65-110); Potassium 4.2 mmol/L (3.4-5.0); Sodium 141 mmol/L (137-145)
[2023-11-29 18:52] LABS: Percent Iron Saturation 44 % (20-50)
[2023-11-29 19:50] LABS: Folic Acid 5.5 ng/mL (2.76->20)
== END 2023-11-29 15:24 | disposition home or self-care (01) ==
PROVIDERS: PCP Family Medicine; Visit Provider Internal Medicine Hematology & Oncology
DX: D64.9 Anemia, unspecified (principal)
CPT/HCPCS: 36415; 80048; 82607; 82728; 82746; 83540; 83550; 85025

== ENCOUNTER 2024-02-11 16:07 | Outpatient (CLI) | payer OTHER, SELFPAY ==
[2024-02-11 17:16] LABS: Basophils Absolute Auto 0.1 K/mm3 (0.0-0.1); Basophils Percent Auto 0.6 % (0.2-1.2); Eosinophils Absolute Auto 0.6 K/mm3 (0-0.3); Eosinophils Percent Auto 6.1 % (0-4.4); Hematocrit 45.1 % (42.0-52.0); Hemoglobin 15.4 g/dL (14.0-18.0); Immature Granulocyte Absolute 0.03 K/mm3 (0.00-0.031); Immature Granulocyte Percent A 0.3 % (0-0.5); Lymphocytes Percent Auto 22.7 % (18.3-44.2); Mean Corpuscular HGB Conc 34.1 g/dl (32-36); Mean Corpuscular Hemoglobin 34.8 pg (26-34); Mean Platelet Volume 9.5 fl (7.4-10.4); Monocytes Absolute Auto 1.5 K/mm3 (0.1-0.6); Monocytes Percent Auto 16.5 % (2.6-8.5); Neutrophils Percent Auto 53.8 % (45.5-73.1); Platelet Count Result 272 k/mm3 (150-375); Red Blood Count 4.42 M/mm3 (4.6-6.20); Red Cell Distribution Width 12.8 % (11.5-14.5); White Blood Count 9.2 K/mm3 (4.5-10.0)
[2024-02-11 17:42] LABS: Iron 85 ug/dL (49-181)
[2024-02-11 17:52] LABS: Percent Iron Saturation 37 % (20-50)
== END 2024-02-11 16:08 | disposition home or self-care (01) ==
LOC: ANHLAB 16:09
PROVIDERS: PCP Family Medicine; Visit Provider Physician Assistant Medical
DX: D64.9 Anemia, unspecified (principal)
CPT/HCPCS: 36415; 83540; 83550; 85025

== ENCOUNTER 2024-02-22 11:49 | Outpatient (CLI) | payer OTHER, SELFPAY ==
--- NOTE | ~2024-02-22 | US_ITS ---
EXAMINATION: US soft tissue buttock LT DATE: 02/22/2024 12:19 INDICATION: Pilonidal without abscess. TECHNIQUE: Multiple grayscale and Doppler ultrasound images of the left buttock were obtained. COMPARISON: CT abdomen and pelvis 11/29/2022 FINDINGS: In the patient's area concern in the buttock, there is a subcutaneous thick-walled cystic m ass with fluid component measuring 2.3 x 0.4 cm. IMPRESSION: 1. Thick-walled subcutaneous cystic mass in the buttock, which may be an abscess or inflamed cyst suc h as a pilonidal cyst. Reviewed, dictated and finalized at location E. IMPRESSION: 1. Thick-walled subcutaneous cystic mass in the buttock, which may be an absces s or inflamed cyst such as a pilonidal cyst.
== END 2024-02-22 11:50 ==
PROVIDERS: PCP Family Medicine; Visit Provider Physician Assistant Medical
DX: L05.91 Pilonidal cyst without abscess (principal)
CPT/HCPCS: 76705

== ENCOUNTER 2024-04-09 11:57 | Outpatient (CLI) | payer OTHER, SELFPAY ==
[2024-04-09 12:45] LABS: Basophils Absolute Auto 0.1 K/mm3 (0.0-0.1); Basophils Percent Auto 0.6 % (0.2-1.2); Eosinophils Absolute Auto 0.5 K/mm3 (0-0.3); Eosinophils Percent Auto 4.6 % (0-4.4); Hemoglobin 15.1 g/dL (14.0-18.0); Immature Granulocyte Absolute 0.04 K/mm3 (0.00-0.031); Immature Granulocyte Percent A 0.4 % (0-0.5); Lymphocytes Percent Auto 17.3 % (18.3-44.2); Mean Corpuscular HGB Conc 34.3 g/dl (32-36); Mean Corpuscular Hemoglobin 34.8 pg (26-34); Mean Corpuscular Volume 101.4 fl (80-100); Mean Platelet Volume 9.3 fl (7.4-10.4); Monocytes Percent Auto 10.3 % (2.6-8.5); Neutrophils Absolute Auto 6.5 K/mm3 (1.3-6.7); Neutrophils Percent Auto 66.8 % (45.5-73.1); Platelet Count Result 275 k/mm3 (150-375); Red Blood Count 4.34 M/mm3 (4.6-6.20); Red Cell Distribution Width 13.1 % (11.5-14.5); White Blood Count 9.8 K/mm3 (4.5-10.0)
[2024-04-09 13:01] LABS: Alanine Aminotransferase 23 U/L (6-50); Albumin Level 4.6 g/dL (3.5-5.1); Alkaline Phosphatase 80 U/L (38-126); Anion Gap 10 mmol/L (4-12); Aspartate Amino Transferase 26 U/L (17-59); Bilirubin,Total 0.5 mg/dL (0.2-1.3); Blood Urea Nitrogen 14 mg/dL (9-20); Calcium 9.4 mg/dL (8.4-10.2); Carbon Dioxide 28 mmol/L (22-30); Chloride 101 mmol/L (98-107); Estimated Glomerular Filt Rate > 60; Glucose 104 mg/dL (65-110); Potassium 3.7 mmol/L (3.4-5.0); Sodium 139 mmol/L (137-145)
[2024-04-09 13:31] LABS: Prostate Specific Antigen 0.5 ng/mL (< OR = 4.0)
[2024-04-09 13:36] LABS: Vitamin D 25 Hydroxy 26.9 ng/mL
[2024-04-09 13:42] LABS: Iron 132 ug/dL (49-181)
[2024-04-09 13:46] LABS: HIV 1/2 Ab P24 Ag Result Negative (Negative)
[2024-04-09 14:06] LABS: Folic Acid 5.8 ng/mL (2.76->20); Percent Iron Saturation 56 % (20-50)
== END 2024-04-09 11:58 | disposition home or self-care (01) ==
LOC: ANHLAB 11:59
PROVIDERS: PCP Family Medicine; Visit Provider Nurse Practitioner Adult Health
DX: D64.9 Anemia, unspecified (principal); R53.83 Other fatigue; Z11.3 Encounter for screening for infections with a predominantly sexual mode of transmission
CPT/HCPCS: 36415; 80053; 82306; 82607; 82746; 83540; 83550; 84153; 84443; 85025; 86703; G0103; G0432

== ENCOUNTER 2024-06-02 14:29 | Outpatient (CLI) | payer OTHER, SELFPAY ==
[2024-06-02 14:43] LABS: Hematocrit 42.1 % (42.0-52.0); Hemoglobin 14.5 g/dL (14.0-18.0); Mean Corpuscular HGB Conc 34.4 g/dl (32-36); Mean Corpuscular Volume 101.7 fl (80-100); Mean Platelet Volume 8.9 fl (7.4-10.4); Platelet Count Result 281 k/mm3 (150-375); Red Blood Count 4.14 M/mm3 (4.6-6.20); Red Cell Distribution Width 12.5 % (11.5-14.5); White Blood Count 7.4 K/mm3 (4.5-10.0)
[2024-06-02 16:30] LABS: Iron 110 ug/dL (49-181)
[2024-06-02 16:39] LABS: Percent Iron Saturation 47 % (20-50)
[2024-06-02 17:37] LABS: Folic Acid 6.6 ng/mL (2.76->20)
== END 2024-06-02 14:30 | disposition home or self-care (01) ==
LOC: ANHLAB 14:31
PROVIDERS: PCP Family Medicine; Visit Provider Internal Medicine Hematology & Oncology
DX: D64.9 Anemia, unspecified (principal)
CPT/HCPCS: 36415; 82607; 82728; 82746; 83540; 83550; 85027

== ENCOUNTER 2025-02-25 11:06 | Outpatient (CLI) | payer OTHER, SELFPAY ==
--- OUTSIDE RECORDS SUMMARY | 2025-02-25 11:09 | XMS_ITS | CONTINUITY OF CARE DOCUMENT ---
Author Name helga partida Address Unknown Organization [facility] Address [address] [place] [address] [address] [place] [address] Phone [phone] Care Team Providers Care Clothes Wringer Name Role Phone Keyla MENJIVAR, Jany Unavailable [phone] Jany Ramires MD Unavailable [phone] INSURANCE PROVIDERS Payer name Policy type / Coverage type [employer] party ID COUNTS INCLUDE [id number] BEDS AT THE [facility] insurance [employer] [id number]
--- OUTSIDE RECORDS SUMMARY | 2025-02-25 11:09 | XMS_ITS | Clinical Summary ---
Author Organization [facility] Cabreraneri adamson [facility] Address [address] [place] [address] Care Team Providers Care Pumper Gauger Name Role Phone Dillon Payne MD Primary Care Provider [phone] Allergies Active Allergy Reactions Criticality Noted Date Comments Succinylcholine Anaphylaxis High 04/02/2019 Medications aspirin (ECOTRIN EC) 81 mg Tablet, Delayed Release (E.C.) Take 81 mg by mouth daily. Active lisinopriL (PRINIVIL) 5 mg tablet Take 5 mg by mouth 2 times daily. 1 Active atorvastatin (LIPITOR) 40 mg tablet Take 1 tablet by mouth nightly 1 Active ascorbic acid (VITAMIN C) 500 mg Tablet, Chewable 1,000 mg. Active ferrous sulfate 325 mg (65 mg iron) tablet Take 1 tablet by mouth once daily with breakfast 90 Tablet 4 Active Additional Information Patient taking differently:325 mg OralEVERY 48 HOURS, Reported on 06/11/2024 tamsulosin (FLOMAX) 0.4 mg capsule Take 0.4 mg by mouth daily. Active Active Problems No known active problems Encounters Date Type Department Care Team Description 12/02/2024 External Device Data [facility] ABSTRACTION Provider, Abstract 12/02/2024 External Device Data [facility] ABSTRACTION Provider, Abstract from Last 3 Months Family History Medical History Relation Name Comments Heart Disease Father Breast Cancer Mother Relation Name Status Comments Brother Alive Father Mother Sister 1 Alive Sister 2 Alive Social History Tobacco Use Types Packs/Day Years Used Date Smoking Tobacco: Every Day Cigarettes Tobacco Cessation:Ready to Q uit: Not Asked; Counseling Given: Not Answered Sex and Gender Information Value Date Recorded Sex Assigned at Not on file Legal Sex Male 9:25 AM CDT Gender Identity Not on file Sexual Orientation Not on file Last Filed Vital Signs Vital Sign Reading Time Taken Comments Blood Pressure 108/69 06/11/2024 3:26 PM CDT Pulse 75 06/11/2024 3:26 PM CDT Temperature 36.8 C (98.2 F) 06/11/2024 3:26 PM CDT Respiratory Rate 16 06/11/2024 3:26 PM CDT Oxygen Saturation 96% 06/11/2024 3:26 PM CDT Inhaled Oxygen Concentration - - Weight 68.9 kg (152 lb) 06/11/2024 3:26 PM CDT Height - - Body Mass Index - - Plan of Treatment Upcoming Encounters Date Type Department Care Team (Late st Contact Info) Description 03/11/2025 2:15 PM CDT Office Visit [facility] Oncology and Hematology [facility] [address] [facility] [address] [place] [address] Sina Whipple MD [address] [facility] [address] [place] [address] Health Maintenance Due Date Last Done Comments DTAP/TDAP/TD VACCINES (1 - Tdap) 01/25/1987 HEPATITIS B VACCINES (1 of 3 - 19+ 3-dose series) 12/1986 COLORECTAL SCREENING 01/25/2013 Colorectal Cancer Screening 01/25/2013 FIT-DNA Q 3 years 01/25/2013 FIT/FOBT Q 1 year 01/25/2013 Flex Sig/CT Colonography Q 5 years 01/25/2013 ZOSTER VACCINE (1 of 2) 01/25/2018 INFLUENZA VACCINE (#1) 2024 Insurance [facility] OPEN ACCESS HMO Care Teams Pumper Gauger Relationship Specialty Start Date End Date Dillon Payne MD [address] [place] [address] PCP - General Family Practice 02/20/23
--- OUTSIDE RECORDS SUMMARY | 2025-02-25 11:09 | XMS_ITS | Clinical Summary ---
Author Organization [facility] Address [address] [place] [phone] Phone Care Team Providers Care Chinese Teacher Name Role Phone Jaison Kline MD Primary Care Provider [phone] Allergies Active Allergy Reactions Criticality Noted Date Comments Succinylcholine Anaphylaxis High 04/02/2019 Medications Brilinta 60 MG Tablet Take 60 mg by mouth 2 times daily. 1 Active lisinopril (PRINIVIL, ZESTRIL) 5 MG Tablet 1 Active aspirin EC 81 MG Tablet Delayed Response Take 81 mg by mouth. Active atorvastatin (LIPITOR) 40 MG Tablet 1 Active methylPREDNISol one (MEDROL DOSPACK) 4 MG Tablet Therapy PackIndications :Sciatica of left side Use as per instructions on package. 1 Dose Pack 1 Active Active Problems No known active problems Immunizations Immunization Administration Dates Next Due TD VACCINE 12/08/2013 Social History Tobacco Use Types Packs/Day Years Used Date Smoking Tobacco: Every Day Cigarettes Smokeless Tobacco: Never Sex and Gender Information Value Date Recorded Sex Assigned at Not on file Legal Sex Male 10:20 PM CDT Gender Identity Not on file Sexual Orientation Not on file Last Filed Vital Signs Vital Sign Reading Time Taken Comments Blood Pressure 112/64 12/11/2020 10:31 AM CDT Pulse 70 12/11/2020 10:31 AM CDT Temperature 36.9 C (98.4 F) 12/11/2020 10:31 AM CDT Respiratory Rate 20 12/11/2020 10:31 AM CDT Oxygen Saturation 99% 12/11/2020 10:31 AM CDT Inhaled Oxygen Concentration - - Weight 68 kg (150 lb) 12/11/2020 10:31 AM CDT Height - - Body Mass Index - - Plan of Treatment Health Maintenance Due Date Last Done Comments Hepatitis C Virus (HCV) Screening 1968 TdaP Immunization 1968 Hepatitis B Immunization (1 of 3 - 19+ 3-dose series) 01/25/1987 Colonoscopy 01/25/2013 Colorectal Cancer Screening 01/25/2013 Cologuard 01/25/2018 Immunochemical Fecal Occult Blood 01/25/2018 Pneumococcal Immunization (5 0+ years) (2 of 2 - PCV) 01/25/2018 07/31/2016 Zoster Immunization (1 of 2) 01/25/2018 SARS-COV-2 Immunization (1 - 2023- season) 2024 Influenza Immunization (Seas on Ended) 2025 07/04/2019, 07/31/2016 Respiratory Syncytial Virus (RSV) Immunization (Adult) (1 - 1-dose 75+ series) 01/25/2043 DTaP/Tdap/Td Immunization Discontinued 2013, 01/23/2011 Pneumococcal Immunization Combined Discontinued 07/31/2016 Human Papillomavirus (HPV) Immunization Aged Out No longer eligible based on patient's age to complete this topic Meningococcal Immunization (ACWY) Aged Out No longer eligible based on patient's age to complete this topic Rotavirus Immunization Aged Out No lo nger eligible based on patient's age to complete this topic Insurance Care Teams Chinese Teacher Relationship Specialty Start Date End Date Jaison Kline MD [address] [place] [id number] PCP - General Family Medicine 12/11/20
[2025-02-25 11:27] LABS: Hematocrit 42.8 % (42.0-52.0); Hemoglobin 14.6 g/dL (14.0-18.0); Mean Corpuscular HGB Conc 34.1 g/dl (32-36); Mean Corpuscular Hemoglobin 34.4 pg (26-34); Mean Corpuscular Volume 100.9 fl (80-100); Platelet Count Result 293 k/mm3 (150-375); Red Blood Count 4.24 M/mm3 (4.6-6.20); Red Cell Distribution Width 13.2 % (11.5-14.5); White Blood Count 15.2 K/mm3 (4.5-10.0)
[2025-02-25 12:01] LABS: Iron 94 ug/dL (49-181)
[2025-02-25 12:12] LABS: Percent Iron Saturation 42 % (20-50)
[2025-02-25 13:12] LABS: Folic Acid 6.4 ng/mL (2.76->20)
== END 2025-02-25 11:07 | disposition home or self-care (01) ==
LOC: ANHLAB 11:07
PROVIDERS: PCP Family Medicine; Visit Provider Internal Medicine Hematology & Oncology
DX: D64.9 Anemia, unspecified (principal)
CPT/HCPCS: 36415; 82607; 82728; 82746; 83540; 83550; 85027

== ENCOUNTER 2025-04-16 10:25 | Outpatient (CLI) | payer OTHER, SELFPAY ==
--- NOTE | ~2025-04-16 | CT_ITS ---
CT Scan of the Chest without Contrast: Clinical Indication: Pulmonary nodule Technique: Contiguous sections were acquired throughout the chest without intravenous contrast. Dose reduction technique was used on this scan by utilizing automated exposure control and iterative recon struction technique. The dose-length product (DLP) was 163.32 mGy-cm. Findings: Shotty mediastinal lymph nodes are present, nonspecific. Extensive coronary artery calcification pres ent. There is no evidence of pleural or pericardial effusion. There is mild emphysema. There are areas of minimal peripheral interstitial change. No discrete/suspi cious pulmonary nodule identified. Images through the upper abdomen reveal hepatic cysts. Impression: No discrete/suspicious pulmonary nodule seen. Mild emphysema with areas of minimal peripheral interstitial change. Reviewed, dictated and finalized at location . Impression: No discrete/suspicious pulmonary nodule seen. Mild emphysema with areas of minimal peripheral interstitial change.
== END 2025-04-16 10:26 | disposition home or self-care (01) ==
LOC: MICIMG 10:26
PROVIDERS: PCP Family Medicine; Visit Provider Nurse Practitioner Adult Health
DX: J43.9 Emphysema, unspecified (principal); R91.1 Solitary pulmonary nodule
CPT/HCPCS: 71250

== ENCOUNTER 2025-04-16 11:03 | Outpatient (CLI) | payer OTHER, SELFPAY ==
--- OUTSIDE RECORDS SUMMARY | 2025-04-16 11:06 | XMS_ITS | Clinical Summary ---
Author Organization [facility] Joleen adamson Shae Address [address] [place] [address] Care Team Providers Care Resort Manager Name Role Phone Dillon Payne MD Primary Care Provider [phone] Allergies Active Allergy Reactions Criticality Noted Date [...] Encounters Date Type Department Care Team Description 03/17/2025 External Device Data [facility] ABSTRACTION Provider, Abstract 03/11/2025 2:15 PM CDT Office Visit [facility] Oncology and Hematology - [place] [address] [place] [address] Sina Whipple MD Chronic anemia (Primary Dx) 02/25/2025 Orders Only [facility] Oncology and Hematology [place] [address] [place] [address] Sina Whipple MD from Last 3 Months Family History Medical [...] Sign Reading Time Taken Comments Blood Pressure 116/57 03/11/2025 2:05 PM CDT Pulse 70 03/11/2025 2:05 PM CDT Temperature 37 C (98.6 F) 03/11/2025 2:05 PM CDT Respiratory Rate 15 03/11/2025 2:05 PM CDT Oxygen Saturation 97% 03/11/2025 2:05 PM CDT Inhaled Oxygen Concentration - - Weight 70.7 kg (155 lb 12.8 oz) 03/11/2025 2:05 PM CDT Height - - Body Mass Index - - Plan of Treatment Upcoming Encounters Date Type Department Care Team (Late st Contact Info) Description 07/13/2025 2:15 PM CDT Office Visit [facility] Oncology and Hematology - [place] [address] [facility] [address] [place] [address] Sina Whipple MD [address] [facility] [address] [place] [address] Health Maintenance Due Date Last Done Comments DTAP/TDAP/TD VACCINES (1 - Tdap) 01/25/1987 HEPATITIS B VACCINES (1 of 3 - 19+ 3-dose series) 12/1986 COLORECTAL SCREENING 01/25/2013 Colorectal Cancer Screening 01/25/2013 FIT-DNA Q 3 years 01/25/2013 FIT/FOBT Q 1 year 01/25/2013 Flex Sig/CT Colonography Q 5 years 01/25/2013 ZOSTER VACCINE (1 of 2) 01/25/2018 INFLUENZA VACCINE (#1) 2025 Procedures Procedure Name Priority Date/Time Associated Diagnosis Comments CBC WITH DIFFERENTIAL Routine 02/25/2025 3:29 PM CDT from Last 3 Months Results * CBC WITH DIFFERENTIAL (02/25/2025 3:29 PM CDT) Blood us Sina Whipple MD HEMATOLOGY ORDERABLES Final Res ult from Last 3 Months Insurance [employer] OPEN ACCESS O Care Teams Resort Manager Relationship Specialty Start Date End Date Dillon Payne MD [address] [place] [address] PCP - General Family Practice 02/20/23
--- OUTSIDE RECORDS SUMMARY | 2025-04-16 11:06 | XMS_ITS | Referral Summary ---
Author Organization [place] [address] Address [address] [place] [phone] Care Team Providers Care Teacher Of The Visually Impaired Name Role Phone Dillon Payne MD Primary Care Provider Encounters Date Type Department Care Team Description 02/27/2025 Results Follow-Up [facility] Medical [facility] Cardiology [address] [place] [address] [address] [place] [address] Omid He MD US Carotids Duplex Bilateral 02/26/2025 10:00 AM CDT Ancillary Procedure [facility] Medical Group Vascular and Vein Surgery at [address] [place] [address] Bilateral carotid artery stenosis 02/25/2025 10:15 AM CDT Office Visit [facility] Cardiology [address] [place] [address] [address] [place] [address] Omid He MD Tobacco abuse (Primary Dx); Coronary artery disease involving [place] coronary artery of [place] heart without angina pectoris; Bilateral carotid artery stenosis; Chronic obstructive pulmonary disease, unspecified COPD type (HCC) from Last 3 Months Allergies Active Allergy Reactions Criticality Noted Date Comments Succinylcholine Anaphylaxis High 04/02/2019 Medications aspirin 81 mg enteric coated tablet Take 1 tablet (81 mg total) by mouth daily Active nitroglycerin (NITROSTAT) 0.[address] 1 tablet (0.4 mg total) under the tongue every 5 (five) minutes as needed for chest pain 25 tablet 9 Active naproxen (ALEVE) 220 mg tablet Take by mouth 2 (two) times a day with meals Active pantoprazole DR (PROTONIX) 40 mg EC tablet TAKE 1 TABLET BY MOUTH ONCE DAILY IN THE MORNING FOR 4 WEEKS 3 Active ascorbic acid (VITAMIN C) 500 mg tablet,chewable 2 tablet/chew tab (1,000 mg total) Active ferrous sulfate 325 mg (65 mg of elemental iron) tablet Take 1 tablet (325 mg total) by mouth daily with breakfast Active tamsulosin (FLOMAX) 0.4 mg extended release capsule Take 1 capsule (0.4 mg total) by mouth daily 4 Active ciprofloxacin (CIPRO) 500 mg tablet Take 1 tablet (500 mg total) by mouth every 12 (twelve) hours 4 Active atorvastatin (LIPITOR) 40 mg tablet Take 1 tablet by mouth nightly 90 tablet 1 5 Active lisinopriL (PRINIVIL,ZESTRIL ) 5 mg tabletIndications :Essential hypertension Take 1 tablet by mouth twice daily 180 tablet 5 Active Active Problems Problem Noted Date Diagnosed Date Black stools 11/28/2022 Atypical chest pain 05/23/2022 Leg pain, bilateral 11/04/2020 Bilateral carotid artery stenosis 02/05/2020 Right carotid bruit 07/28/2019 Presence of stent in coronary artery 04/17/2019 Coronary artery disease invo lving [place] coronary artery of [place] heart without angina pectoris 04/17/2019 Abnormal stress test 04/02/2019 Chronic obstructive pulmonary disease 04/02/2019 Tobacco abuse 04/02/2019 Social History Tobacco Use Types Packs/Day Years Used Date Smoking Tobacco: Some Days Cigarettes Smokeless Tobacco: Never Tobacco Cessation:Ready to Q uit: Not Asked; Counseling Given: Not Answered Alcohol Use Standard Drinks/Week Comments Yes 0 (1 standard drink = 0.6 oz pur e alcohol) AUDIT-C Answer Date Recorded Frequency of Alcohol Consumption Monthly or less 04/02/2019 Average Number of Drinks 1 or 2 019 Frequency of Binge Drinking Less than monthly Sex and Gender Information Value Date Recorded Sex Assigned at Not on file 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 Gender Identity Not on file Sexual Orientation Not on file Last Filed Vital Signs Vital Sign Reading Time Taken Comments Blood Pressure 110/70 02/25/2025 10:25 AM CDT Pulse 65 02/25/2025 10:25 AM CDT Temperature - - Respiratory Rate - - Oxygen Saturation 94% 02/25/2025 10:25 AM CDT Inhaled Oxygen Concentration - - Weight 71.7 kg (158 lb) 02/25/2025 10:25 AM CDT Height 185.4 cm (6' 1) 02/25/2025 10:25 AM CDT Body Mass Index 20.85 02/25/2025 10:25 AM CDT Plan of Treatment Not on file Procedures Procedure Name Priority Date/Time Associated Diagnosis Comments US CAROTIDS DUPLEX BILATERAL Schedule Routine, Read Routine (OP Routine) 02/26/2025 10:42 AM CDT Bilateral carotid artery stenosis POCT LIPID PANEL Routine 02/25/2025 10:2 6 AM CDT Coronary artery disease involving [place] coronary artery of [place] heart without angina pectoris from Last 3 Months Results * US Carotids Duplex Bilateral (02/26/2025 10:42 AM CDT) Anatomical Region Laterality Modality Vascular Bilateral Ultrasound 02/26/2025 10:0 8 AM CDT Narrative 02/27/2025 10:18 AM CDT Vascular & Vein Surgery [address] [place] [address] Carotid Duplex Ultrasound Report Patient Name: LUIS MANUEL WALSH W : 1970 (55y 1m) Study Date: 02/26/2025 10:08:52 AM Gender: M Shoe Repair Cobbler: Location: [facility] Ref Provider: OMID HE Quality: Adequate Order Provider: OMID HE PROCEDURES: Carotid Report: Carotid duplex examination of the extracranial arteries was performed using 2D, color and spectral Doppler. INDICATIONS: Follow up carotid disease. HISTORY: CAD S/P stent. COPD. Current smoker. COMPARISONS: The previous exam was completed on 10/04/23 @ Jesse: bilat 50-69. MEASUREMENTS: Right Value Left Value RT Prox CCA PSV 129 cm/sec LT Prox CCA PSV 150 cm/sec RT Prox CCA EDV 19 cm/sec LT Prox CCA EDV 17 cm/sec RT Distal CCA PSV 108 cm/sec LT Distal CCA PSV 98 cm/sec RT Distal CCA EDV 13 cm/sec LT Distal CCA EDV 19 cm/sec RT Prox ICA PSV 128 cm/sec LT Prox ICA PSV 99 cm/sec RT Prox ICA EDV 19 cm/sec LT Prox ICA EDV 23 cm/sec RT Mid ICA PSV 122 cm/sec LT Mid ICA PSV 100 cm/sec RT Mid ICA EDV 26 cm/sec LT Mid ICA EDV 23 cm/sec RT Distal ICA PSV 107 cm/sec LT Distal ICA PSV 108 cm/sec RT Distal ICA EDV 27 cm/sec LT Distal ICA EDV 28 cm/sec RT ECA Prx PSV 142 cm/sec LT ECA Prx PSV 138 cm/sec RT ICA/CCA 1.19 ratio LT ICA/CCA 1.10 ratio Rt Vert Dst PSV 0 cm/sec Lt Vert Dst PSV 69 cm/sec FINDINGS: Rt Common Carotid Artery: Duplex imaging of the right common carotid artery is within normal limits without evidence of atherosclerotic disease. Rt Internal Carotid Artery: The plaque in the right internal carotid artery appears to be heterogeneous and smooth. Significant atherosclerotic changes of the right internal carotid artery with elevated peak systolic velocity and end diastolic velocity, as above. 50-69% stenosis. Rt External Carotid Artery: Patent right external carotid artery with evidence of atherosclerotic disease present. Rt Vertebral Artery: The right vertebral flow could not be identified. Lt Common Carotid Artery: Duplex imaging of the left common carotid artery is within normal limits without evidence of atherosclerotic disease. Lt Internal Carotid Artery: The plaque in the left internal carotid artery appears to be heterogeneous and smooth. Atherosclerotic changes of the left internal carotid artery without hemodynamically significant Doppler findings. <50% stenosis. Unable to replicate prior elevated velocity. Lt External Carotid Artery: Patent left external carotid artery with evidence of atherosclerotic disease present. Lt Vertebral Artery: The left vertebral artery is patent with antegrade flow. Comments: Brachial artery systolic blood pressure is 139 on the right, 134 on the left. CONCLUSIONS: 1. The right internal carotid artery disease is consistent with moderate 50-69% stenosis. 2. The left internal carotid artery disease is consistent with a less than 50% stenosis. ATTESTATION: I have reviewed and interpreted the pertinent images and measurements of this study. I attest to the conclusions in the final report that is provided above. Electronically Signed By: Kevin Peck MD 02/27/2025 9:46:00 AM CDT Procedure Note Kevin Peck MD - 02/27/2025 Vascular & Vein Surgery [address] [place] [id number] Carotid Duplex Ultrasound Report Patient Name: LUIS MANUEL WALSH W : 1970 (55y 1m) Study Date: 02/26/2025 10:08:52 AM Gender: M Shoe Repair Cobbler: Location: [facility] Provider: OMID HE Quality: Adequate Order Provider: OMID HE PROCEDURES: Carotid Report: Carotid duplex examination of the extracranial arterieswas performed using 2D, color and spectral Doppler. INDICATIONS: Follow up carotid disease. HISTORY: CAD S/P stent. COPD. Current smoker. COMPARISONS: The previous exam was completed on 10/04/23 @ Jesse: bilat 50-69. MEASUREMENTS: Right Value Left Value RT Prox CCA PSV 129 cm/sec LT Prox CCA PSV 150 cm/sec RT Prox CCA EDV 19 cm/sec LT Prox CCA EDV 17 cm/sec RT Distal CCA PSV 108 cm/sec LT Distal CCA PSV 98 cm/sec RT Distal CCA EDV 13 cm/sec LT Distal CCA EDV 19 cm/sec RT Prox ICA PSV 128 cm/sec LT Prox ICA PSV 99 cm/sec RT Prox ICA EDV 19 cm/sec LT Prox ICA EDV 23 cm/sec RT Mid ICA PSV 122 cm/sec LT Mid ICA PSV 100 cm/sec RT Mid ICA EDV 26 cm/sec LT Mid ICA EDV 23 cm/sec RT Distal ICA PSV 107 cm/sec LT Distal ICA PSV 108 cm/sec RT Distal ICA EDV 27 cm/sec LT Distal ICA EDV 28 cm/sec RT ECA Prx PSV 142 cm/sec LT ECA Prx PSV 138 cm/sec RT ICA/CCA 1.19 ratio LT ICA/CCA 1.10 ratio Rt Vert Dst PSV 0 cm/sec Lt Vert Dst PSV 69 cm/sec FINDINGS: Rt Common Carotid Artery: Duplex imaging of the right common carotidartery is within normal limits without evidence of atherosclerotic disease. Rt Internal Carotid Artery: The plaque in the right internal carotidartery appears to be heterogeneous and smooth. Significant atherosclerotic changes of the rightinternal carotid artery with elevated peak systolic velocity and end diastolicvelocity, as above. 50-69% stenosis. Rt External Carotid Artery: Patent right external carotid artery withevidence of atherosclerotic disease present. Rt Vertebral Artery: The right vertebral flow could not be identified. Lt Common Carotid Artery: Duplex imaging of the left common carotid arteryis within normal limits without evidence of atherosclerotic disease. Lt Internal Carotid Artery: The plaque in the left internal carotid arteryappears to be heterogeneous and smooth. Atherosclerotic changes of the left internalcarotid artery without hemodynamically significant Doppler findings. <50% stenosis.Unable to replicate prior elevated velocity. Lt External Carotid Artery: Patent left external carotid artery withevidence of atherosclerotic disease present. Lt Vertebral Artery: The left vertebral artery is patent with antegradeflow. Comments: Brachial artery systolic blood pressure is 139 on the right, 134on the left. CONCLUSIONS: 1. The right internal carotid artery disease is consistent with otsophta72-11% stenosis. 2. The left internal carotid artery disease is consistent with a less than50% stenosis. ATTESTATION: I have reviewed and interpreted the pertinent images and measurements ofthis study. I attest to the conclusions in the final report that is provided above. Electronically Signed By: Kevin Peck MD 02/27/2025 9:46:00 AM CDT Omid He MD IMG US PROCEDURES Final R esult * POCT lipid panel (02/25/2025 10:26 AM CDT) Cholesterol, POC 99 <200 MG/DL HDL, POC 55 >=40 mg/dL Triglycerides, POC 44 <=149 mg/dL LDL Cholesterol POC 35 <=129 mg/dL Cholesterol Total, POC 99 30 - 199 mg/dL Capillary blood 02/25/2025 1 0:26 AM CDT Omid He MD POINT OF CARE TEST ORDERA BLES Final Result from Last 3 Months Insurance [employer] OPEN ACCESS Care Teams Teacher Of The Visually Impaired Relationship Specialty Start Date End Date Dillon Payne MD PCP - General Family Medicine 11/14/21
--- OUTSIDE RECORDS SUMMARY | 2025-04-16 11:06 | XMS_ITS | Clinical Summary ---
Author Organization [facility] Address [address] [place] [phone] Phone Care Team Providers Care Mobility Developer Name Role Phone Jaison Kline MD Primary Care Provider Allergies Active Allergy Reactions Criticality Noted Date [...] of 3 - 19+ 3-dose series) 01/25/1987 Cologuard 01/25/2013 Colonoscopy 01/25/2013 Colorectal Cancer Screening 01/25/2013 Immunochemical Fecal Occult Blood 01/25/2013 Pneumococcal Immunization (5 0+ years) (2 of 2 - PCV) 01/25/2018 07/31/2016 Zoster Immunization (1 of 2) 01/25/2018 SARS-COV-2 Immunization (1 - 2023- season) 2024 Influenza Immunization (#1) 05/25/202506/24, 07/31/2016 Respiratory Syncytial Virus (RSV) Immunization (Adult) [...] to complete this topic Insurance Care Teams Mobility Developer Relationship Specialty Start Date End Date Jaison Kline MD [address] [place] [id number] PCP - General Family Medicine 12/11/20
--- OUTSIDE RECORDS SUMMARY | 2025-04-16 11:06 | XMS_ITS | Clinical Summary ---
Author Organization [facility] [address] Address [address] [place] [address] Care Team Providers Care Tree Driller Name Role Phone Dillon Payne MD Primary Care Provider [phone] Allergies Active Allergy Reactions Criticality Noted Date [...] artery 04/17/2019 Coronary artery disease invo lving [place] coronary artery of [place] heart without angina pectoris 04/17/2019 Abnormal stress test 04/02/2019 Chronic obstructive pulmonary disease 04/02/2019 Tobacco abuse 04/02/2019 Encounters Date Type Department Care Team Description 02/27/2025 Results Follow-Up [facility] Medical Group Cardiology [address] [place] [address] Omid He MD US Carotids Duplex Bilateral 02/26/2025 10:00 AM CDT Ancillary Procedure [facility] Medical Group Vascular and Vein Surgery at [address] [place] [address] Bilateral carotid artery stenosis 02/25/2025 10:15 AM CDT Office Visit [facility] Medical Group Cardiology [address] [place] [address] Omid He MD Tobacco abuse (Primary Dx); Coronary artery disease involving [place] coronary artery of [place] heart without angina pectoris; Bilateral carotid artery stenosis; Chronic obstructive pulmonary disease, unspecified COPD type (HCC) from Last 3 Months Medical History Medical History Date Comments COPD (chronic obstructive pulmonary disease) (HC C) Family History Medical History Relation Name Comments Heart attack Father Stroke Father Cancer Mother Relation Name Status Comments Father (Age 62) Mother (Age 63) Social History Tobacco Use Types Packs/Day Years [...] on file 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 Gender Identity Not on file Sexual Orientation Not on file Obstetrics History Last Filed Vital Signs Vital Sign Reading [...] 02/25/2025 10:25 AM CDT Plan of Treatment Health Maintenance Due Date Last Done Comments Colon Cancer Screening-Colonoscopy 1970 Depression Screening 1970 Hepatitis C Screening 1970 Prostate Cancer Screening-PSA 1970 Hepatitis B Screening 01/25/1986 Regular Well Visit/Exam 18-64 01/25/1986 DTaP/Tdap/Td Vaccine (1 - Tdap) 12/09/2013 4, 01/23/2011 Pneumococcal vaccine <65 (2 of 2 - PCV) 07/31/2017 1 09/30/2015 Zoster Vaccine (1 of 2) 01/25/2018 Influenza Vaccine (#1) 2025 07/31/2016 Procedures Procedure Name Priority Date/Time Associated Diagnosis Comments US CAROTIDS DUPLEX BILATERAL Schedule Routine, Read Routine (OP Routine) 02/26/2025 10:42 AM CDT Bilateral carotid artery stenosis POCT LIPID PANEL Routine 02/25/2025 10:2 6 AM CDT Coronary artery disease involving [place] coronary artery of [place] heart without angina pectoris from Last 3 Months Results * US Carotids Duplex Bilateral (02/26/2025 10:42 AM CDT) Anatomical Region Laterality Modality Vascular Bilateral Ultrasound 02/26/2025 10:0 8 AM CDT Narrative 02/27/2025 10:18 AM CDT Vascular & Vein Surgery [address] 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 INDICATIONS: Follow up carotid disease. HISTORY: CAD S/P stent. COPD. Current smoker. COMPARISONS: The previous exam was completed on 10/04/23 @ Jesse: magdi 50-69. MEASUREMENTS: Right Value Left Value RT [...] MD - 02/27/2025 Vascular & Vein Surgery [address] [facility] [place] [address] Carotid Duplex Ultrasound Report Patient Name: LUIS MANUEL WALSH W : 1970 (55y 1m) Study Date: 02/26/2025 10:08:52 AM Gender: M Wireless Field Technician: Location: [facility] Ref Provider: OMID HE Quality: Adequate Order Provider: OMID HE PROCEDURES: Carotid Report: Carotid duplex examination of the extracranial arterieswas performed using 2D, color and spectral Doppler. INDICATIONS: Follow up carotid disease. HISTORY: CAD S/P stent. COPD. Current smoker. COMPARISONS: The previous exam was completed on 10/04/23 @ Jesse: magdi 50-69. MEASUREMENTS: Right Value Left Value RT [...] internal carotid artery disease is consistent with pntsyiqi80-44% stenosis. 2. The left internal carotid artery disease is consistent with a less than50% stenosis. ATTESTATION: I have reviewed and interpreted the pertinent images and measurements ofthis study. I attest to the conclusions in the final report that is provided above. Electronically Signed By: Kevin Peck MD 02/27/2025 9:46:00 AM CDT us Omid He MD IM US PROCEDURES Final R esult * POCT [...] Final Result from Last 3 Months Insurance [employer] OPEN ACCESS [employer] OPEN ACCESS Care Teams Tree Driller Relationship Specialty Start Date End Date Dillon Payne MD PCP - General Family Medicine 11/14/21
--- OUTSIDE RECORDS SUMMARY | 2025-04-16 11:06 | XMS_ITS | Encounter Summary ---
Author Organization [facility] Address [address] [place] [address] Care Team Providers Care Jewel Hole Driller Name Role Phone Dillon Payne MD Primary Care Provider [phone] Encounter Details Date Type Department Care Team (Late st Contact Info) Description 02/27/2025 Results Follow-Up [facility] Medical Group Cardiology [address] [place] [address] Tyrone Leon MD [address] [facility] [address] [place] [address] US Carotids Duplex Bilateral Social History Tobacco Use Types Packs/Day Years Used Date Smoking Tobacco: Some Days Cigarettes Smokeless Tobacco: Never Alcohol Use Standard Drinks/Week Comments Yes 0 (1 standard drink = 0.6 oz pur e alcohol) AUDIT-C Answer Date Recorded Frequency of Alcohol Consumption Monthly or less 04/02/2019 Average Number of Drinks 1 or 2 019 Frequency of Binge Drinking Less than monthly Sex and Gender Information Value Date Recorded Sex Assigned at Not on file 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
[2025-04-16 11:26] LABS: Hematocrit 40.4 % (42.0-52.0); Hemoglobin 13.4 g/dL (14.0-18.0); Immature Granulocyte Percent A 0.9 % (0-0.5); Lymphocytes Absolute Auto 1.82 K/mm3 (0.9-3.2); Mean Corpuscular HGB Conc 33.2 g/dl (32-36); Mean Corpuscular Hemoglobin 33.8 pg (26-34); Mean Corpuscular Volume 102.0 fl (80-100); Nucleated Red Blood Cells Absolute Auto 0.000 K/mm3 (0.0-0.012); Nucleated Red Blood Cells Perc 0.0 % (0.0-0.2); Platelet Count Result 238 k/mm3 (150-375); Red Blood Count 3.96 M/mm3 (4.6-6.20); White Blood Count 8.2 K/mm3 (4.5-10.0)
[2025-04-16 11:47] LABS: Iron 152 ug/dL (49-181)
[2025-04-16 11:48] LABS: Alanine Aminotransferase 21 U/L (6-50); Albumin Level 4.1 g/dL (3.5-5.1); Alkaline Phosphatase 80 U/L (38-126); Anion Gap 6 mmol/L (4-12); Aspartate Amino Transferase 28 U/L (17-59); Bilirubin,Total 0.5 mg/dL (0.2-1.3); Blood Urea Nitrogen 8 mg/dL (9-20); Calcium 9.3 mg/dL (8.4-10.2); Carbon Dioxide 28 mmol/L (22-30); Chloride 102 mmol/L (98-107); Cholesterol 105 mg/dL (0-200); Estimated Glomerular Filt Rate > 60; Glucose 106 mg/dL (65-110); HDL Direct 54 mg/dL; Potassium 4.1 mmol/L (3.4-5.0); Sodium 136 mmol/L (137-145); Total Protein 7.0 g/dL (6.3-8.2); Triglycerides 45 mg/dL (<150)
[2025-04-16 11:56] LABS: Percent Iron Saturation 65 % (20-50)
[2025-04-16 12:23] LABS: Prostate Specific Antigen 0.3 ng/mL (< OR = 4.0); Thyroid Stimulating Hormone 1.200 uIU/mL (0.465-4.680)
[2025-04-16 12:59] LABS: Vitamin B12 632.0 pg/mL (239-931)
== END 2025-04-16 11:04 | disposition home or self-care (01) ==
LOC: ANHLAB 11:04
PROVIDERS: PCP Family Medicine; Visit Provider Nurse Practitioner Adult Health
DX: Z12.5 Encounter for screening for malignant neoplasm of prostate (principal); I10 Essential (primary) hypertension; E78.2 Mixed hyperlipidemia; E55.9 Vitamin D deficiency, unspecified; E53.9 Vitamin B deficiency, unspecified; K21.9 Gastro-esophageal reflux disease without esophagitis; K61.0 Anal abscess; K63.5 Polyp of colon; D50.9 Iron deficiency anemia, unspecified
CPT/HCPCS: 36415; 80053; 80061; 82306; 82607; 82746; 83540; 83550; 84153; 84443; 85025; G0103

== ENCOUNTER 2025-07-01 11:25 | Outpatient (CLI) | payer OTHER, SELFPAY ==
[2025-07-01 11:51] LABS: Hematocrit 43.0 % (42.0-52.0); Hemoglobin 14.4 g/dL (14.0-18.0); Mean Corpuscular HGB Conc 33.5 g/dl (32-36); Mean Corpuscular Hemoglobin 34.4 pg (26-34); Mean Corpuscular Volume 102.9 fl (80-100); Platelet Count Result 300 k/mm3 (150-375); Red Blood Count 4.18 M/mm3 (4.6-6.20); White Blood Count 8.3 K/mm3 (4.5-10.0)
[2025-07-01 13:17] LABS: Iron 76 ug/dL (49-181)
[2025-07-01 13:18] LABS: Anion Gap 4 mmol/L (4-12); Blood Urea Nitrogen 11 mg/dL (9-20); Calcium 9.8 mg/dL (8.4-10.2); Carbon Dioxide 29 mmol/L (22-30); Chloride 103 mmol/L (98-107); Estimated Glomerular Filt Rate > 60; Glucose 111 mg/dL (65-110); Potassium 4.8 mmol/L (3.4-5.0); Sodium 136 mmol/L (137-145)
[2025-07-01 13:26] LABS: Percent Iron Saturation 31 % (20-50)
[2025-07-01 13:58] LABS: Ferritin 276.00 ng/mL (11.1-264)
[2025-07-01 14:30] LABS: Vitamin B12 871.0 pg/mL (239-931)
== END 2025-07-01 11:26 | disposition home or self-care (01) ==
LOC: ANHLAB 11:26
PROVIDERS: PCP Family Medicine; Visit Provider Internal Medicine Hematology & Oncology
DX: D64.9 Anemia, unspecified (principal)
CPT/HCPCS: 36415; 80048; 82607; 82728; 82746; 83540; 83550; 85027